=== PATIENT | female | born 1950 | race Caucasian/White ===

== ENCOUNTER 2018-06-20 05:52 | Outpatient (CLI) | payer MEDICARE ==
[~2018-06-20] VITALS: Ht 157.5 cm; Wt 39.0 kg
[2018-06-20] MEDS ORDERED: FOLI1TAB24 PO (09:32)
[2018-06-20] MEDS ORDERED: METO50TA15 PO (09:32)
[2018-06-20] MEDS ORDERED: POTA20TA8 PO (09:32)
== END 2018-06-20 09:57 | disposition home or self-care (01) ==
LOC: PREOP 05:52
PROVIDERS: ATTEND Surgery
DX: Z01.818 Encounter for other preprocedural examination (principal)

== ENCOUNTER 2018-06-25 08:00 | Day surgery (SDC) | payer MEDICARE ==
[~2018-06-25] VITALS: Ht 157.5 cm; Wt 39.0 kg
[~2018-06-25 08:00] MED LIST: FOLI1TAB24 PO; METO50TA15 PO; POTA20TA8 PO
[2018-06-25 08:20] VITALS: BP 170/87
[2018-06-25] MEDS ORDERED: LACTATED RINGERS 1,000 ML IV PRN (08:25)
[2018-06-25] MEDS ORDERED: ceFAZolin 2 GM IV Premixed 50 ML IV ONE (08:30)
[2018-06-25] MEDS ORDERED: CATHETER FLUSH 10 ML SYR IV PRN (08:30)
--- NOTE | 2018-06-25 08:30 | Progress Note-Pre Operative ---
Pre-Operative Progress Note H&P Reviewed The H&P was reviewed, patient examined and no changes noted. Time Seen by Provider: 08:24 Date H&P Reviewed: Jun 25, 2018 Time H&P Reviewed: 08:25 Pre-Operative Diagnosis: Venous Insufficiency ARVIN COUCH DO Jun 25, 2018 08:29
[2018-06-25] MEDS ORDERED: BUP/EPI 0.5% 1:200,000 (SENSORCAINE) 30 ML VIAL ONE (08:48)
[2018-06-25] MEDS ORDERED: 0.9% SODIUM CHLORIDE PF INJ 20 ML VIAL ONE (08:48)
[2018-06-25] MEDS ORDERED: HEParin (CENTRAL IV FLUSH) 500 UNIT/5 ML SYR ONE (08:48)
[2018-06-25] MEDS ORDERED: LIDOCAINE 1% INJ 20 ML 20 ML VIAL ONE (08:48)
[2018-06-25] MEDS ORDERED: proPOfol 200 MG/20 ML (DIPRIVAN) VIAL IV ONE (09:10)
[2018-06-25] MEDS ORDERED: MIDAZOLAM 2 MG/2 ML (VERSED) VIAL ONE (09:10)
[2018-06-25] MEDS ORDERED: fentaNYL INJECTION 100 MCG/2 ML AMP ONE (09:10)
[2018-06-25] MEDS ORDERED: LIDOCAINE PF 2% 5 ML (XYLOCAINE) VIAL ONE (09:10)
--- NOTE | 2018-06-25 10:51 | Progress Note-Post Operative ---
Post-Operative Progess Note Surgeon (s)/Compliance Program Manager (s) Surgeon ARVIN COUCH DO Compliance Program Manager: none Pre-Operative Diagnosis Venous Insufficiency, Lung CA Post-Operative Diagnosis Same Procedure & Operative Findings Date of Procedure 06/25/18 Procedure Performed/Findings Zafar-cath placement Anesthesia Type MAC Estimated Blood Loss Estimated blood loss (mL): scant Specimens/Packing Specimens Removed none ARVIN COUCH DO Jun 25, 2018 10:51
[2018-06-25] MEDS ORDERED: ACHD5005 PO ×2 (10:52)
--- NOTE | 2018-06-25 10:53 | Discharge Inst-Surgical ---
Discharge Inst-Surgical Depart Medication/Instructions New, Converted or Re-Newed RX: RX Given to Pt/Family Patient Instructions Follow up Appt: Make appointment for 1 week. [phone] Instructions: No strenuous activity. May shower in 24 hours, no tub bath or soaking. Use incentive spirometer at home as directed. No Smoking Skin/Wound Care: May remove bandages in am. You need to leave the Dermabond on incision it will fall off on it's own. Symptoms to Report: Appetite Changes, Extremity Discoloration, Numbness/Tingling, Swelling Increased , Bleeding Excessive, Eyesight Changes, Pain Increased, Urine Color Change, Constipation(Persistent), Fever over 101 degree F, Pain/Pressure in chest, Urinating Difficulty, Cough Up/Vomit Blood, Heart Beat Irreg/Pounding, Pain/ Pressure in jaw, Cramps in feet or legs, Lightheadedness, Pain/Pressure in shoulder, Diarrhea(Persistent), Memory Changes Suddenly, Questions/Concerns, Weight gain consecutive days, Dizziness/Fainting, Nausea/Vomiting, Shortness of Breath, Weight gain over 2 pounds If questions or concerns contact your physician Or seek help at emergency department. Activity Activity as Tolerated: Yes Activity Instructions: Avoid Stress to Incision Driving Instructions: No Driving/Refer to Dr. Strong Discharge Diet: No Restrictions Diet After 24 Hours: Clear Liquid if Nauseous If Any Problems/Questions/Issu: Contact Your Physician, Go to Emergency Room Skin/Wound Care Infection Signs and Symptoms: Increased Redness, Foul Odor of Wound, Increased Drainage, Skin Itchy or Has a Rash, Increased Swelling, Temperature Above 101 F Bathing Instructions: Shower Stitches/Carolee/Dermabond Dis: ARVIN Valente DO Jun 25, 2018 10:53
[2018-06-25] MEDS ORDERED: HYDROmorphone 2 MG/ML VIAL (DILAUDID) IV ONE (11:15)
[2018-06-25] MEDS ORDERED: ONDANSETRON 4 MG/2 ML (SDV) Z0FRAN IVP PRN (11:15)
[2018-06-25 11:20] VITALS: BP 141/75
[2018-06-25 11:25] VITALS: BP 141/75
--- NOTE | 2018-06-25 11:30 | Diagnostic Imaging Report ---
INDICATION: Port placement. TIME OF EXAMINATION: 11:14 a.m. FINDINGS: Portable upright view of the chest shows a left chest wall port with tip overlying the SVC. No pneumothorax is identified. The lungs are clear. The heart is enlarged. There is no effusion. IMPRESSION: Port placement. No pneumothorax is detected. Dictated by: Dictated on workstation # [id number]
[2018-06-25 11:50] VITALS: BP 161/83
--- NOTE | 2018-06-25 12:58 | Diagnostic Imaging Report ---
Indication: Fluoroscopy during a Groshong catheter placement. Fluoroscopy was provided for Dr. Ramos during Groshong catheter placement. 6 seconds of fluoroscopy was utilized. Images over the chest demonstrate a left subclavian Groshong catheter with tip overlying SVC. Impression: Fluoroscopy during Groshong catheter placement. Dictated by: Dictated on workstation # [id number]
--- NOTE | 2018-06-25 14:08 | Anesthesia-General Post-Op ---
MAC Patient Condition Mental Status/LOC: Same as Preop Cardiovascular: Satisfactory Nausea/Vomiting: Absent Respiratory: Satisfactory Pain: Controlled Complications: Absent Post Op Complications Complications None Follow Up Care/Instructions Patient Instructions None needed. Anesthesiology Discharge Order Discharge Order Patient is doing well, no complaints, stable vital signs, no apparent adverse anesthesia problems. No complications reported per nursing. AZUL SUERO CRNA Jun 25, 2018 14:08
--- NOTE | 2018-06-26 03:23 | OPERATIVE REPORT ---
DATE OF SERVICE: PREOPERATIVE DIAGNOSES: 1. Anal cancer. 2. Metastatic lung nodule. 3. Venous insufficiency. POSTOPERATIVE DIAGNOSES: 1. Anal cancer. 2. Metastatic lung nodule. 3. Venous insufficiency. PROCEDURE: Insertion of Port-A-Cath. SURGEON: Kevin Lynn DO RECORDING CLERK: None. ANESTHESIA: IV sedation by the EXECUTIVE CYBER LEADER with local lidocaine. BLOOD LOSS: Scant. SPECIMENS: None. FLUIDS: Per anesthesia. POSTOPERATIVE CONDITION: Stable. INDICATION FOR PROCEDURE: The patient is a 67-year-old female who unfortunately recently diagnosed with anal cancer with a metastatic lung nodule. She also has some venous insufficiency. We will need long-term access for chemotherapy. FINDINGS: The patient had a Port-A-Cath placed in the left anterior chest wall, left subclavian vein. PROCEDURE NOTE: After informed consent was obtained, the patient was brought to the operating room, placed on the table in supine position. She was sterilely prepped and draped in normal fashion. Local lidocaine was used to infiltrate the skin and left anterior chest wall towards the left clavicle. The patient placed in Trendelenburg, advanced an 18-gauge fine needle with negative inspiration and cannulated the subclavian vein on first attempt. Good flash of blood, removed the syringe, placed a guidewire down the needle using Seldinger technique, it went in easily, checked fluoroscopy, it was in good position in the superior vena cava, removed the needle and then made a stab incision along the guidewire with #11 blade and then made an incision in the chest wall with a #11 blade, carried down to skin and subcutaneous tissue and deepened down through subcutaneous tissue with Bovie electrocautery to the chest wall, created pocket bluntly and then over the guidewire placed a dilator using the Seldinger technique, it went in easily, checked with fluoroscopy, it was in good position, then tunneled the catheter from the stab incision to the port pocket and then removed the inner portion of the dilator sheath as well as the guidewire and then placed the catheter down the dilator sheath using a Seldinger technique, it went in easily, checked position with fluoroscopy, it was in good position, removed the external dilator sheath, then cut the distal portion of the catheter tip attached to the sling [id number] and then placed a locking mechanism. This was then placed into the pocket previously created, sutured in place with 3-0 Prolene. The port was accessed with a Osorio needle. A good flash of blood and easily flushed with saline as well as then aspirated and flushed with heparin flush. We then sutured this in place with a 3-0 Vicryl suture to close subcutaneous tissue and then 3 interrupted 4-0 undyed Monocryl subcuticular stitches to close the skin as well as a single 4-0 undyed Monocryl subcuticular stitch at the stab incision. Area was cleaned and dried. Dermabond was placed as well as dressings and the patient then transferred to recovery room in stable condition. Sponge, instrument and needle counts were correct at the end of the case. Job ID: [id number] DocumentID: [id number] Dictated Date: 06/25/2018 15:37:36 Labor Employment Associate Date: 06/26/2018 03:22:22 Dictated By: KEVIN LYNN DO
== END 2018-06-25 12:05 | disposition home or self-care (01) ==
LOC: SDC 08:00
PROVIDERS: ATTEND Surgery
DX: C21.1 Malignant neoplasm of anal canal (principal); C78.00 Secondary malignant neoplasm of unspecified lung; I10 Essential (primary) hypertension; J44.9 Chronic obstructive pulmonary disease, unspecified; E27.9 Disorder of adrenal gland, unspecified; F17.210 Nicotine dependence, cigarettes, uncomplicated; Z80.3 Family history of malignant neoplasm of breast; Z79.899 Other long term (current) drug therapy; Z92.3 Personal history of irradiation; Z11.2 Encounter for screening for other bacterial diseases
CPT/HCPCS: 71045; 87081

== ENCOUNTER → 2018-06-26 | Outpatient (CLI) | payer MEDICARE, OTHER ==
[~2018-06-26] MED LIST changes: +ACHD5005 PO
--- NOTE | 2018-06-26 16:29 | Diagnostic Imaging Report ---
INDICATION: Lung carcinoma and rectal carcinoma. This study is performed for restaging. TECHNIQUE: The serum blood glucose level at the time of injection was 85 mg/dL. The patient was administered 12.3 mCi of F-18 FDG intravenously and PET imaging was performed from the top of the skull to the mid thighs. Noncontrast CT was also performed for attenuation correction and anatomic correlation. COMPARISON: No prior studies are available for comparison. FINDINGS: There is symmetric activity throughout the brain. The soft tissues of the neck are unremarkable. Imaging through the chest does show some hypermetabolism in the subcarinal location with an SUV max of approximately 5.1. This does correspond to soft tissue fullness in this region on the noncontrast CT measuring 2.4 x 1.6 cm, suggestive of lymphadenopathy. No hilar hypermetabolism is seen. There is a hypermetabolic mass in the right lower lobe demonstrating an SUV max of approximately 7.4. This does correspond to a spiculated mass in the right lower lobe measuring 2.7 cm in diameter. No other pulmonary parenchymal hypermetabolic foci are seen. There is physiologic uptake of activity within the GI and tracts of the abdomen and pelvis. IMPRESSION: Hypermetabolic right lower lobe mass, consistent with primary lung neoplasm. There is hypermetabolic soft tissue fullness in the subcarinal region, consistent with adenopathy and likely metastatic disease. No other suspicious foci are detected. Dictated by: Dictated on workstation # [id number]
== END ==
LOC: RAD 09:15
PROVIDERS: ATTEND Internal Medicine Hematology & Oncology
DX: C34.31 Malignant neoplasm of lower lobe, right bronchus or lung (principal); C21.1 Malignant neoplasm of anal canal

== ENCOUNTER 2018-06-27 09:41 | Outpatient (RCR) | payer OTHER ==
[2018-04-11 17:25] LABS: BUN/CREATININE RATIO 18; CREATININE SERUM 0.73 MG/DL (0.60-1.30); GFR ESTIMATED > 60
[~2018-06-27 09:41] MED LIST changes: +CYANOCOBALAMIN INJ 1000 MCG/ML (CANCER CENTER) ONE
[2018-06-27 11:43] LABS: BASOPHILS # (AUTO) 0.1 10^3/uL (0.0-0.1); BASOPHILS % (AUTO) 2 % (0-10); EOSINOPHILS # (AUTO) 0.1 10^3/uL (0.0-0.3); EOSINOPHILS % (AUTO) 1 % (0-10); HEMATOCRIT 38 % (35-52); HEMOGLOBIN 12.3 G/DL (11.5-16.0); LYMPHOCYTES # (AUTO) 0.4 X 10^3 (1.0-4.0); LYMPHOCYTES % (AUTO) 7 % (12-44); MEAN CORPUSCULAR HEMOGLOBIN 30 PG (25-34); MEAN CORPUSCULAR HGB CONC 32 G/DL (32-36); MEAN CORPUSCULAR VOLUME 94 FL (80-99); MEAN PLATELET VOLUME 8.6 FL (7.4-10.4); MONOCYTES # (AUTO) 0.6 X 10^3 (0.0-1.0); MONOCYTES % (AUTO) 10 % (0-12); NEUTROPHILS # (AUTO) 4.9 X 10^3 (1.8-7.8); NEUTROPHILS % (AUTO) 80 % (42-75); PLATELET COUNT 338 10^3/uL (130-400); RED CELL DISTRIBUTION WIDTH 16.7 % (10.0-14.5); WHITE BLOOD COUNT 6.1 10^3/uL (4.3-11.0)
[2018-06-27 12:02] LABS: ALANINE AMINOTRANSFERASE 9 U/L (0-55); ALBUMIN 3.8 GM/DL (3.2-4.5); ALKALINE PHOSPHATASE 123 U/L (40-136); BILIRUBIN,TOTAL 0.2 MG/DL (0.1-1.0); BUN/CREATININE RATIO 17; CALCIUM 8.9 MG/DL (8.5-10.1); CARBON DIOXIDE 24 MMOL/L (21-32); CHLORIDE 106 MMOL/L (98-107); CREATININE SERUM 0.64 MG/DL (0.60-1.30); GFR ESTIMATED > 60; GLUCOSE 98 MG/DL (70-105); MAGNESIUM 1.9 MG/DL (1.8-2.4); POTASSIUM 4.2 MMOL/L (3.6-5.0); SODIUM 139 MMOL/L (135-145); TOTAL PROTEIN 6.6 GM/DL (6.4-8.2)
== END 2018-07-10 | disposition home or self-care (01) ==
LOC: ONC 09:41
PROVIDERS: ATTEND Internal Medicine Hematology & Oncology
DX: Z51.0 Encounter for antineoplastic radiation therapy (principal); C21.1 Malignant neoplasm of anal canal; C34.31 Malignant neoplasm of lower lobe, right bronchus or lung; I10 Essential (primary) hypertension; J44.9 Chronic obstructive pulmonary disease, unspecified; F17.210 Nicotine dependence, cigarettes, uncomplicated; Z79.899 Other long term (current) drug therapy
CPT/HCPCS: 36415; 77280; 77290; 77295; 77300; 77307; 77334; 77336; 77417; 77470; 80053; 82565; 83735; 84520; 85025; 96372; 99204; 99212; 99213

== ENCOUNTER 2018-10-10 10:08 | Outpatient (RCR) | payer OTHER ==
[2018-07-25 11:31] LABS: BASOPHILS % (AUTO) 0 % (0-10); EOSINOPHILS % (AUTO) 0 % (0-10); HEMATOCRIT 38 % (35-52); HEMOGLOBIN 12.3 G/DL (11.5-16.0); LYMPHOCYTES # (AUTO) 0.3 X 10^3 (1.0-4.0); LYMPHOCYTES % (AUTO) 3 % (12-44); MEAN CORPUSCULAR HEMOGLOBIN 31 PG (25-34); MEAN CORPUSCULAR HGB CONC 33 G/DL (32-36); MEAN CORPUSCULAR VOLUME 96 FL (80-99); MEAN PLATELET VOLUME 8.9 FL (7.4-10.4); MONOCYTES # (AUTO) 0.6 X 10^3 (0.0-1.0); MONOCYTES % (AUTO) 5 % (0-12); NEUTROPHILS # (AUTO) 10.7 X 10^3 (1.8-7.8); NEUTROPHILS % (AUTO) 93 % (42-75); PLATELET COUNT 378 10^3/uL (130-400); WHITE BLOOD COUNT 11.5 10^3/uL (4.3-11.0)
[2018-07-25 11:58] LABS: ALANINE AMINOTRANSFERASE 8 U/L (0-55); ALBUMIN 4.1 GM/DL (3.2-4.5); ALKALINE PHOSPHATASE 124 U/L (40-136); BILIRUBIN,TOTAL 0.2 MG/DL (0.1-1.0); BUN/CREATININE RATIO 26; CALCIUM 9.7 MG/DL (8.5-10.1); CARBON DIOXIDE 25 MMOL/L (21-32); CHLORIDE 105 MMOL/L (98-107); CREATININE SERUM 0.65 MG/DL (0.60-1.30); GFR ESTIMATED > 60; GLUCOSE 107 MG/DL (70-105); POTASSIUM 4.1 MMOL/L (3.6-5.0); SODIUM 140 MMOL/L (135-145); TOTAL PROTEIN 7.2 GM/DL (6.4-8.2)
[2018-08-01 10:33] LABS: BASOPHILS % (AUTO) 1 % (0-10); EOSINOPHILS # (AUTO) 0.1 10^3/uL (0.0-0.3); EOSINOPHILS % (AUTO) 3 % (0-10); HEMATOCRIT 39 % (35-52); HEMOGLOBIN 12.6 G/DL (11.5-16.0); LYMPHOCYTES # (AUTO) 0.4 X 10^3 (1.0-4.0); LYMPHOCYTES % (AUTO) 12 % (12-44); MEAN CORPUSCULAR HEMOGLOBIN 32 PG (25-34); MEAN CORPUSCULAR HGB CONC 32 G/DL (32-36); MEAN CORPUSCULAR VOLUME 98 FL (80-99); MEAN PLATELET VOLUME 8.9 FL (7.4-10.4); MONOCYTES # (AUTO) 0.3 X 10^3 (0.0-1.0); MONOCYTES % (AUTO) 10 % (0-12); NEUTROPHILS # (AUTO) 2.2 X 10^3 (1.8-7.8); NEUTROPHILS % (AUTO) 74 % (42-75); PLATELET COUNT 237 10^3/uL (130-400); RED CELL DISTRIBUTION WIDTH 15.5 % (10.0-14.5)
[2018-08-01 10:54] LABS: BUN/CREATININE RATIO 36; CALCIUM 9.2 MG/DL (8.5-10.1); CARBON DIOXIDE 22 MMOL/L (21-32); CHLORIDE 104 MMOL/L (98-107); CREATININE SERUM 0.73 MG/DL (0.60-1.30); GFR ESTIMATED > 60; GLUCOSE 85 MG/DL (70-105); POTASSIUM 4.5 MMOL/L (3.6-5.0); SODIUM 138 MMOL/L (135-145)
[2018-08-08 10:44] LABS: BASOPHILS % (AUTO) 0 % (0-10); EOSINOPHILS % (AUTO) 0 % (0-10); HEMATOCRIT 37 % (35-52); LYMPHOCYTES # (AUTO) 0.2 X 10^3 (1.0-4.0); LYMPHOCYTES % (AUTO) 3 % (12-44); MEAN CORPUSCULAR HEMOGLOBIN 31 PG (25-34); MEAN CORPUSCULAR HGB CONC 32 G/DL (32-36); MEAN CORPUSCULAR VOLUME 96 FL (80-99); MEAN PLATELET VOLUME 9.2 FL (7.4-10.4); MONOCYTES # (AUTO) 0.4 X 10^3 (0.0-1.0); MONOCYTES % (AUTO) 5 % (0-12); NEUTROPHILS # (AUTO) 6.5 X 10^3 (1.8-7.8); NEUTROPHILS % (AUTO) 92 % (42-75); PLATELET COUNT 199 10^3/uL (130-400); RED CELL DISTRIBUTION WIDTH 15.1 % (10.0-14.5); WHITE BLOOD COUNT 7.1 10^3/uL (4.3-11.0)
[2018-08-08 10:59] LABS: BUN/CREATININE RATIO 22; CALCIUM 9.2 MG/DL (8.5-10.1); CARBON DIOXIDE 22 MMOL/L (21-32); CHLORIDE 103 MMOL/L (98-107); CREATININE SERUM 0.64 MG/DL (0.60-1.30); GFR ESTIMATED > 60; GLUCOSE 113 MG/DL (70-105); POTASSIUM 3.4 MMOL/L (3.6-5.0); SODIUM 138 MMOL/L (135-145)
[2018-08-15 10:47] LABS: BASOPHILS % (AUTO) 0 % (0-10); EOSINOPHILS % (AUTO) 0 % (0-10); HEMATOCRIT 35 % (35-52); HEMOGLOBIN 11.4 G/DL (11.5-16.0); LYMPHOCYTES # (AUTO) 0.3 X 10^3 (1.0-4.0); LYMPHOCYTES % (AUTO) 3 % (12-44); MEAN CORPUSCULAR HEMOGLOBIN 31 PG (25-34); MEAN CORPUSCULAR HGB CONC 33 G/DL (32-36); MEAN CORPUSCULAR VOLUME 96 FL (80-99); MEAN PLATELET VOLUME 8.7 FL (7.4-10.4); MONOCYTES # (AUTO) 0.8 X 10^3 (0.0-1.0); MONOCYTES % (AUTO) 10 % (0-12); NEUTROPHILS # (AUTO) 6.9 X 10^3 (1.8-7.8); NEUTROPHILS % (AUTO) 87 % (42-75); PLATELET COUNT 316 10^3/uL (130-400); RED CELL DISTRIBUTION WIDTH 15.3 % (10.0-14.5)
[2018-08-15 11:04] LABS: ALANINE AMINOTRANSFERASE 11 U/L (0-55); ALBUMIN 4.1 GM/DL (3.2-4.5); ALKALINE PHOSPHATASE 117 U/L (40-136); BILIRUBIN,TOTAL 0.2 MG/DL (0.1-1.0); BUN/CREATININE RATIO 24; CALCIUM 9.9 MG/DL (8.5-10.1); CARBON DIOXIDE 24 MMOL/L (21-32); CHLORIDE 105 MMOL/L (98-107); CREATININE SERUM 0.66 MG/DL (0.60-1.30); GFR ESTIMATED > 60; GLUCOSE 108 MG/DL (70-105); POTASSIUM 4.3 MMOL/L (3.6-5.0); SODIUM 139 MMOL/L (135-145); TOTAL PROTEIN 6.9 GM/DL (6.4-8.2)
[2018-08-22 10:14] LABS: BASOPHILS % (AUTO) 0 % (0-10); EOSINOPHILS % (AUTO) 1 % (0-10); HEMATOCRIT 38 % (35-52); HEMOGLOBIN 12.6 G/DL (11.5-16.0); LYMPHOCYTES # (AUTO) 0.3 X 10^3 (1.0-4.0); LYMPHOCYTES % (AUTO) 8 % (12-44); MEAN CORPUSCULAR HEMOGLOBIN 32 PG (25-34); MEAN CORPUSCULAR HGB CONC 34 G/DL (32-36); MEAN CORPUSCULAR VOLUME 96 FL (80-99); MEAN PLATELET VOLUME 8.9 FL (7.4-10.4); MONOCYTES # (AUTO) 0.3 X 10^3 (0.0-1.0); MONOCYTES % (AUTO) 8 % (0-12); NEUTROPHILS # (AUTO) 2.5 X 10^3 (1.8-7.8); NEUTROPHILS % (AUTO) 82 % (42-75); PLATELET COUNT 169 10^3/uL (130-400); RED CELL DISTRIBUTION WIDTH 14.8 % (10.0-14.5); WHITE BLOOD COUNT 3.1 10^3/uL (4.3-11.0)
[2018-08-22 10:29] LABS: BUN/CREATININE RATIO 29; CALCIUM 9.7 MG/DL (8.5-10.1); CARBON DIOXIDE 27 MMOL/L (21-32); CHLORIDE 102 MMOL/L (98-107); CREATININE SERUM 0.73 MG/DL (0.60-1.30); GFR ESTIMATED > 60; GLUCOSE 107 MG/DL (70-105); POTASSIUM 4.5 MMOL/L (3.6-5.0); SODIUM 136 MMOL/L (135-145)
[2018-08-29 09:57] LABS: BASOPHILS % (AUTO) 0 % (0-10); EOSINOPHILS % (AUTO) 1 % (0-10); HEMATOCRIT 35 % (35-52); HEMOGLOBIN 11.8 G/DL (11.5-16.0); LYMPHOCYTES # (AUTO) 0.2 X 10^3 (1.0-4.0); LYMPHOCYTES % (AUTO) 4 % (12-44); MEAN CORPUSCULAR HEMOGLOBIN 32 PG (25-34); MEAN CORPUSCULAR HGB CONC 33 G/DL (32-36); MEAN CORPUSCULAR VOLUME 96 FL (80-99); MEAN PLATELET VOLUME 9.2 FL (7.4-10.4); MONOCYTES # (AUTO) 0.4 X 10^3 (0.0-1.0); MONOCYTES % (AUTO) 9 % (0-12); NEUTROPHILS # (AUTO) 3.7 X 10^3 (1.8-7.8); NEUTROPHILS % (AUTO) 86 % (42-75); PLATELET COUNT 111 10^3/uL (130-400); WHITE BLOOD COUNT 4.3 10^3/uL (4.3-11.0)
[2018-08-29 10:12] LABS: BUN/CREATININE RATIO 23; CALCIUM 9.5 MG/DL (8.5-10.1); CARBON DIOXIDE 24 MMOL/L (21-32); CHLORIDE 103 MMOL/L (98-107); CREATININE SERUM 0.77 MG/DL (0.60-1.30); GFR ESTIMATED > 60; GLUCOSE 110 MG/DL (70-105); POTASSIUM 3.9 MMOL/L (3.6-5.0); SODIUM 137 MMOL/L (135-145)
[2018-09-05 10:31] LABS: BASOPHILS % (AUTO) 0 % (0-10); EOSINOPHILS % (AUTO) 0 % (0-10); HEMATOCRIT 33 % (35-52); HEMOGLOBIN 11.2 G/DL (11.5-16.0); LYMPHOCYTES # (AUTO) 0.2 X 10^3 (1.0-4.0); LYMPHOCYTES % (AUTO) 3 % (12-44); MEAN CORPUSCULAR HEMOGLOBIN 32 PG (25-34); MEAN CORPUSCULAR HGB CONC 34 G/DL (32-36); MEAN CORPUSCULAR VOLUME 95 FL (80-99); MEAN PLATELET VOLUME 8.8 FL (7.4-10.4); MONOCYTES # (AUTO) 0.4 X 10^3 (0.0-1.0); MONOCYTES % (AUTO) 7 % (0-12); NEUTROPHILS # (AUTO) 5.7 X 10^3 (1.8-7.8); NEUTROPHILS % (AUTO) 90 % (42-75); PLATELET COUNT 240 10^3/uL (130-400); RED CELL DISTRIBUTION WIDTH 15.2 % (10.0-14.5); WHITE BLOOD COUNT 6.4 10^3/uL (4.3-11.0)
[2018-09-05 10:52] LABS: ALANINE AMINOTRANSFERASE 12 U/L (0-55); ALBUMIN 4.2 GM/DL (3.2-4.5); ALKALINE PHOSPHATASE 103 U/L (40-136); BILIRUBIN,TOTAL 0.2 MG/DL (0.1-1.0); BUN/CREATININE RATIO 21; CALCIUM 9.7 MG/DL (8.5-10.1); CARBON DIOXIDE 26 MMOL/L (21-32); CHLORIDE 103 MMOL/L (98-107); CREATININE SERUM 0.62 MG/DL (0.60-1.30); GFR ESTIMATED > 60; GLUCOSE 114 MG/DL (70-105); POTASSIUM 3.7 MMOL/L (3.6-5.0); SODIUM 139 MMOL/L (135-145)
[2018-09-11 10:05] LABS: BASOPHILS % (AUTO) 0 % (0-10); EOSINOPHILS % (AUTO) 1 % (0-10); HEMATOCRIT 36 % (35-52); HEMOGLOBIN 11.8 G/DL (11.5-16.0); LYMPHOCYTES # (AUTO) 0.1 X 10^3 (1.0-4.0); LYMPHOCYTES % (AUTO) 4 % (12-44); MEAN CORPUSCULAR HEMOGLOBIN 31 PG (25-34); MEAN CORPUSCULAR HGB CONC 33 G/DL (32-36); MEAN CORPUSCULAR VOLUME 95 FL (80-99); MEAN PLATELET VOLUME 8.9 FL (7.4-10.4); MONOCYTES # (AUTO) 0.3 X 10^3 (0.0-1.0); MONOCYTES % (AUTO) 8 % (0-12); NEUTROPHILS # (AUTO) 2.8 X 10^3 (1.8-7.8); NEUTROPHILS % (AUTO) 87 % (42-75); PLATELET COUNT 186 10^3/uL (130-400); RED CELL DISTRIBUTION WIDTH 14.9 % (10.0-14.5); WHITE BLOOD COUNT 3.2 10^3/uL (4.3-11.0)
[2018-09-11 10:24] LABS: BUN/CREATININE RATIO 23; CALCIUM 9.7 MG/DL (8.5-10.1); CARBON DIOXIDE 25 MMOL/L (21-32); CHLORIDE 100 MMOL/L (98-107); CREATININE SERUM 0.64 MG/DL (0.60-1.30); GFR ESTIMATED > 60; GLUCOSE 101 MG/DL (70-105); POTASSIUM 3.2 MMOL/L (3.6-5.0); SODIUM 139 MMOL/L (135-145)
[2018-09-19 12:17] LABS: BASOPHILS % (AUTO) 0 % (0-10); EOSINOPHILS % (AUTO) 1 % (0-10); HEMATOCRIT 31 % (35-52); HEMOGLOBIN 10.2 G/DL (11.5-16.0); LYMPHOCYTES # (AUTO) 0.2 X 10^3 (1.0-4.0); LYMPHOCYTES % (AUTO) 4 % (12-44); MEAN CORPUSCULAR HEMOGLOBIN 32 PG (25-34); MEAN CORPUSCULAR HGB CONC 33 G/DL (32-36); MEAN CORPUSCULAR VOLUME 96 FL (80-99); MEAN PLATELET VOLUME 9.6 FL (7.4-10.4); MONOCYTES # (AUTO) 0.8 X 10^3 (0.0-1.0); MONOCYTES % (AUTO) 13 % (0-12); NEUTROPHILS # (AUTO) 4.9 X 10^3 (1.8-7.8); NEUTROPHILS % (AUTO) 83 % (42-75); PLATELET COUNT 87 10^3/uL (130-400); WHITE BLOOD COUNT 5.9 10^3/uL (4.3-11.0)
[2018-09-19 12:33] LABS: BUN/CREATININE RATIO 19; CARBON DIOXIDE 29 MMOL/L (21-32); CHLORIDE 102 MMOL/L (98-107); CREATININE SERUM 0.63 MG/DL (0.60-1.30); POTASSIUM 2.9 MMOL/L (3.6-5.0); SODIUM 141 MMOL/L (135-145)
[2018-09-19 12:34] LABS: CALCIUM 9.3 MG/DL (8.5-10.1); GFR ESTIMATED > 60; GLUCOSE 92 MG/DL (70-105)
[2018-09-26 13:02] LABS: BASOPHILS % (AUTO) 0 % (0-10); EOSINOPHILS % (AUTO) 0 % (0-10); HEMATOCRIT 31 % (35-52); LYMPHOCYTES # (AUTO) 0.2 X 10^3 (1.0-4.0); LYMPHOCYTES % (AUTO) 3 % (12-44); MEAN CORPUSCULAR HEMOGLOBIN 32 PG (25-34); MEAN CORPUSCULAR HGB CONC 33 G/DL (32-36); MEAN CORPUSCULAR VOLUME 97 FL (80-99); MEAN PLATELET VOLUME 9.5 FL (7.4-10.4); MONOCYTES # (AUTO) 0.6 X 10^3 (0.0-1.0); MONOCYTES % (AUTO) 7 % (0-12); NEUTROPHILS # (AUTO) 6.9 X 10^3 (1.8-7.8); NEUTROPHILS % (AUTO) 90 % (42-75); PLATELET COUNT 217 10^3/uL (130-400); RED CELL DISTRIBUTION WIDTH 15.5 % (10.0-14.5); WHITE BLOOD COUNT 7.7 10^3/uL (4.3-11.0)
[2018-09-26 13:18] LABS: ALANINE AMINOTRANSFERASE 6 U/L (0-55); ALBUMIN 3.7 GM/DL (3.2-4.5); ALKALINE PHOSPHATASE 130 U/L (40-136); BILIRUBIN,TOTAL 0.1 MG/DL (0.1-1.0); BUN/CREATININE RATIO 29; CALCIUM 9.5 MG/DL (8.5-10.1); CARBON DIOXIDE 21 MMOL/L (21-32); CHLORIDE 106 MMOL/L (98-107); CREATININE SERUM 0.72 MG/DL (0.60-1.30); GFR ESTIMATED > 60; GLUCOSE 151 MG/DL (70-105); POTASSIUM 4.1 MMOL/L (3.6-5.0); SODIUM 141 MMOL/L (135-145); TOTAL PROTEIN 6.6 GM/DL (6.4-8.2)
[2018-10-03 11:28] LABS: BASOPHILS # (AUTO) 0.1 10^3/uL (0.0-0.1); BASOPHILS % (AUTO) 2 % (0-10); EOSINOPHILS % (AUTO) 0 % (0-10); HEMATOCRIT 31 % (35-52); HEMOGLOBIN 10.2 G/DL (11.5-16.0); LYMPHOCYTES # (AUTO) 0.2 X 10^3 (1.0-4.0); LYMPHOCYTES % (AUTO) 9 % (12-44); MEAN CORPUSCULAR HEMOGLOBIN 32 PG (25-34); MEAN CORPUSCULAR HGB CONC 33 G/DL (32-36); MEAN CORPUSCULAR VOLUME 96 FL (80-99); MEAN PLATELET VOLUME 9.1 FL (7.4-10.4); MONOCYTES # (AUTO) 0.3 X 10^3 (0.0-1.0); MONOCYTES % (AUTO) 10 % (0-12); NEUTROPHILS % (AUTO) 79 % (42-75); PLATELET COUNT 127 10^3/uL (130-400); RED CELL DISTRIBUTION WIDTH 15.1 % (10.0-14.5); WHITE BLOOD COUNT 2.5 10^3/uL (4.3-11.0)
[2018-10-03 11:47] LABS: BUN/CREATININE RATIO 26; CALCIUM 9.3 MG/DL (8.5-10.1); CARBON DIOXIDE 22 MMOL/L (21-32); CHLORIDE 102 MMOL/L (98-107); CREATININE SERUM 0.62 MG/DL (0.60-1.30); GFR ESTIMATED > 60; GLUCOSE 87 MG/DL (70-105); POTASSIUM 3.7 MMOL/L (3.6-5.0); SODIUM 139 MMOL/L (135-145)
[~2018-10-10] VITALS: Ht 160 cm; Wt 38.6 kg
[~2018-10-10 10:08] MED LIST changes: +CARBOPLATIN IV SCH; +D5W IV SCH; +FOSAPREPITANT DIMEGLUMINE 150 MG in NS (IVPB) CANCER CENTER ONLY 150 ML IV SCH; +NS IV 1000 ML (CANCER CTR) IV SCH; +PALONOSETRON HCL 0.25 MG, DEXAMETHASONE INJECTION 10 MG in NS (IVPB) CANCER CENTER 50 ML IV SCH; +PEMETREXED DISODIUM IV SCH; +[UNRECOGNIZED DRUG - OTHER] IV SCH
[2018-10-10 10:29] LABS: BASOPHILS % (AUTO) 0 % (0-10); EOSINOPHILS % (AUTO) 1 % (0-10); HEMATOCRIT 28 % (35-52); HEMOGLOBIN 9.3 G/DL (11.5-16.0); LYMPHOCYTES # (AUTO) 0.3 X 10^3 (1.0-4.0); LYMPHOCYTES % (AUTO) 8 % (12-44); MEAN CORPUSCULAR HEMOGLOBIN 32 PG (25-34); MEAN CORPUSCULAR HGB CONC 33 G/DL (32-36); MEAN CORPUSCULAR VOLUME 97 FL (80-99); MEAN PLATELET VOLUME 10.9 FL (7.4-10.4); MONOCYTES # (AUTO) 0.4 X 10^3 (0.0-1.0); MONOCYTES % (AUTO) 13 % (0-12); NEUTROPHILS # (AUTO) 2.3 X 10^3 (1.8-7.8); NEUTROPHILS % (AUTO) 78 % (42-75); PLATELET COUNT 56 10^3/uL (130-400); RED CELL DISTRIBUTION WIDTH 16.1 % (10.0-14.5)
[2018-10-10 10:49] LABS: BUN/CREATININE RATIO 13; CALCIUM 9.4 MG/DL (8.5-10.1); CARBON DIOXIDE 27 MMOL/L (21-32); CHLORIDE 104 MMOL/L (98-107); CREATININE SERUM 0.69 MG/DL (0.60-1.30); GFR ESTIMATED > 60; GLUCOSE 97 MG/DL (70-105); POTASSIUM 3.5 MMOL/L (3.6-5.0); SODIUM 141 MMOL/L (135-145)
== END 2018-10-16 | disposition home or self-care (01) ==
LOC: ONC 10:08
PROVIDERS: ATTEND Internal Medicine Hematology & Oncology
DX: Z51.0 Encounter for antineoplastic radiation therapy (principal); Z51.11 Encounter for antineoplastic chemotherapy; C21.1 Malignant neoplasm of anal canal; C34.31 Malignant neoplasm of lower lobe, right bronchus or lung; I10 Essential (primary) hypertension; J44.9 Chronic obstructive pulmonary disease, unspecified; E27.9 Disorder of adrenal gland, unspecified; F17.210 Nicotine dependence, cigarettes, uncomplicated; Z80.3 Family history of malignant neoplasm of breast; Z79.899 Other long term (current) drug therapy; Z11.2 Encounter for screening for other bacterial diseases
CPT/HCPCS: 36415; 36591; 77290; 77295; 77300; 77307; 77334; 77336; 77417; 77470; 80048; 80053; 85025; 96367; 96375; 96411; 96413; 99213

== ENCOUNTER → 2018-10-17 | Outpatient (CLI) | payer MEDICARE, OTHER ==
[~2018-10-17] MED LIST changes: -CARBOPLATIN IV SCH; -CYANOCOBALAMIN INJ 1000 MCG/ML (CANCER CENTER) ONE; -D5W IV SCH; -FOSAPREPITANT DIMEGLUMINE 150 MG in NS (IVPB) CANCER CENTER ONLY 150 ML IV SCH; +HOLD METFORMIN - RECEIVED CONTRAST 20 ML VIAL IV SCH; +IOHEXOL 350 MG/ML 100 ML (OMNIPAQUE 350) VIAL IV ONE; +NS 100 ML (IVPB) BAG IV ONE; -NS IV 1000 ML (CANCER CTR) IV SCH; -PALONOSETRON HCL 0.25 MG, DEXAMETHASONE INJECTION 10 MG in NS (IVPB) CANCER CENTER 50 ML IV SCH; -PEMETREXED DISODIUM IV SCH; -[UNRECOGNIZED DRUG - OTHER] IV SCH
--- NOTE | 2018-10-17 14:19 | Diagnostic Imaging Report ---
PROCEDURE: CT chest with contrast, CT abdomen and pelvis with and without contrast. TECHNIQUE: Pre and post intravenous contrast axial imaging of the abdomen and pelvis and post contrast axial imaging of the chest were performed. Auto Exposure Controls were utilized during the CT exam to meet ALARA standards for radiation dose reduction. INDICATION: Lung carcinoma and upper abdominal pain. COMPARISON: Comparison is made with PET/CT study from 06/26/2018. FINDINGS: CT chest: Left chest wall port is again noted. No axillary lymphadenopathy is detected. Subcarinal fullness measures approximately 2.6 x 2.5 cm compared with 1.6 x 2.4 cm on prior. Comparison is difficult due to the previous study being performed without contrast. No definite hilar adenopathy is seen. No pericardial or pleural fluid is identified. Parenchymal evaluation demonstrates marked apical pleural-parenchymal scarring. There are significant centrilobular emphysematous changes in both lungs. The patient has developed some airspace infiltrate and bronchiectasis in the right middle lobe and to a lesser degree in the lingula. Spiculated mass measures approximately 2.3 cm compared with 2.7 cm on prior. There is some new infiltrate anterior to this in the right lower lobe. Left lower lobe is clear. IMPRESSION: 1. Spiculated right lower lobe mass measures slightly smaller when compared with prior exam. There are new airspace opacities in the right middle lobe, right lower lobe, and lingula, likely on an infectious/inflammatory basis. 2. Questionable increase in the subcarinal lymphadenopathy since prior PET/CT, although comparison is difficult due to absence of IV contrast on prior imaging. CT abdomen and pelvis: No discrete liver mass is identified. Gallbladder is unremarkable. There is no biliary ductal dilatation. The pancreas and spleen are unremarkable. Right adrenal gland is unremarkable. The mixed-density mass involving the left adrenal gland is similar in size at approximately 4.1 x 3.0 cm compared with 4.0 x 2.9 cm on prior. Small nonobstructing calculi in both kidneys are noted. Aorta is heavily calcified but nonaneurysmal. Iliacs are heavily calcified. Bowel loops appear nonobstructive. Bladder does show some mild generalized wall thickening, nonspecific. This could be partially owing to underdistention. No definite abdominal or pelvic lymphadenopathy is seen. There is diverticulosis of the sigmoid colon but no definite evidence of acute diverticulitis. There is some questionable wall thickening of the rectum. This is less prominent than appearance on the PET/CT from 06/26/2018. IMPRESSION: 1. Stable mixed-density left adrenal mass since study from 06/26/2018. 2. Bilateral nonobstructing nephrolithiasis. 3. No evidence of abdominal or pelvic lymphadenopathy. 4. Rectal wall thickening and perirectal inflammatory stranding, improved since prior PET/CT. This could potentially be post therapeutic. Dictated by: Dictated on workstation # [id number]
== END ==
LOC: RAD 13:01
PROVIDERS: ATTEND Internal Medicine Hematology & Oncology
DX: C34.90 Malignant neoplasm of unspecified part of unspecified bronchus or lung (principal); C21.1 Malignant neoplasm of anal canal; E27.8 Other specified disorders of adrenal gland; N20.0 Calculus of kidney; Z95.828 Presence of other vascular implants and grafts
CPT/HCPCS: 71260; 74178

== ENCOUNTER → 2018-11-19 | Outpatient (CLI) | payer MEDICARE ==
--- NOTE | 2018-11-19 15:32 | Diagnostic Imaging Report ---
PROCEDURE: CT chest with contrast only. TECHNIQUE: Multiple contiguous axial images were obtained through the chest after administration of intravenous contrast. Auto Exposure Controls were utilized during the CT exam to meet ALARA standards for radiation dose reduction. INDICATION: Lung cancer. FINDINGS: Comparison is 10/17/2018. The lungs are severely emphysematous. A 1.7 x 1.4 cm right lower lobe spiculated nodule has mildly decreased in size previously measuring 2.2 x 1.8 cm. Atelectasis and nodularity in the right middle lobe has improved with areas of bronchial plugging going to this portion of the lung. A pleural-based nodule more inferiorly in the right lower lobe is stable in size measuring 1.7 x 1.4 cm, previously 1.8 x 1.3 cm. 5 mm superior segment right lower lobe nodule. No new nodules are seen. There is scarring in the apices. No pleural effusion or pneumothorax. Heart size is normal. No pericardial effusion. Aorta is normal in caliber. There are mild coronary artery calcifications. No axillary, supraclavicular lymphadenopathy. A subcarinal lymph node is decreased in size measuring 1.7 cm, previously 2.3 cm. Limited views of the upper abdomen reveal a stable left adrenal nodule measuring 4.0 x 3.0 cm. This contains internal fat and may represent a large myelolipoma. No suspicious osseous lesions are seen. IMPRESSION: 1. Mild decrease in size of right lower lobe nodule and subcarinal lymphadenopathy. 2. Stable left adrenal nodule, possibly a myelolipoma given presence of internal fat. 3. Improvement in consolidation and atelectasis in the right middle lobe, likely infectious or inflammatory with bronchial plugging noted going to this area. Dictated by: Dictated on workstation # [id number]
== END ==
LOC: RAD 12:01
PROVIDERS: ATTEND Internal Medicine Hematology & Oncology
DX: C34.90 Malignant neoplasm of unspecified part of unspecified bronchus or lung (principal); C21.1 Malignant neoplasm of anal canal; E27.8 Other specified disorders of adrenal gland; J18.1 Lobar pneumonia, unspecified organism; J98.11 Atelectasis; R59.0 Localized enlarged lymph nodes
CPT/HCPCS: 71260

== ENCOUNTER 2018-12-24 08:48 | Outpatient (RCR) | payer OTHER ==
[2018-10-17 14:03] LABS: BASOPHILS % (AUTO) 1 % (0-10); EOSINOPHILS % (AUTO) 1 % (0-10); HEMATOCRIT 31 % (35-52); HEMOGLOBIN 9.9 G/DL (11.5-16.0); LYMPHOCYTES # (AUTO) 0.4 X 10^3 (1.0-4.0); LYMPHOCYTES % (AUTO) 10 % (12-44); MEAN CORPUSCULAR HEMOGLOBIN 32 PG (25-34); MEAN CORPUSCULAR HGB CONC 32 G/DL (32-36); MEAN CORPUSCULAR VOLUME 99 FL (80-99); MEAN PLATELET VOLUME 9.3 FL (7.4-10.4); MONOCYTES % (AUTO) 23 % (0-12); NEUTROPHILS # (AUTO) 2.8 X 10^3 (1.8-7.8); NEUTROPHILS % (AUTO) 66 % (42-75); PLATELET COUNT 181 10^3/uL (130-400); RED CELL DISTRIBUTION WIDTH 17.2 % (10.0-14.5); WHITE BLOOD COUNT 4.3 10^3/uL (4.3-11.0)
[2018-10-17 14:22] LABS: BUN/CREATININE RATIO 15; CALCIUM 9.1 MG/DL (8.5-10.1); CARBON DIOXIDE 26 MMOL/L (21-32); CHLORIDE 98 MMOL/L (98-107); CREATININE SERUM 0.75 MG/DL (0.60-1.30); GFR ESTIMATED > 60; GLUCOSE 91 MG/DL (70-105); SODIUM 137 MMOL/L (135-145)
[2018-11-19 11:58] LABS: BASOPHILS # (AUTO) 0.1 10^3/uL (0.0-0.1); BASOPHILS % (AUTO) 1 % (0-10); EOSINOPHILS # (AUTO) 0.2 10^3/uL (0.0-0.3); EOSINOPHILS % (AUTO) 3 % (0-10); HEMATOCRIT 34 % (35-52); HEMOGLOBIN 10.8 G/DL (11.5-16.0); LYMPHOCYTES # (AUTO) 0.4 X 10^3 (1.0-4.0); LYMPHOCYTES % (AUTO) 7 % (12-44); MEAN CORPUSCULAR HEMOGLOBIN 32 PG (25-34); MEAN CORPUSCULAR HGB CONC 32 G/DL (32-36); MEAN CORPUSCULAR VOLUME 101 FL (80-99); MEAN PLATELET VOLUME 8.6 FL (7.4-10.4); MONOCYTES # (AUTO) 0.6 X 10^3 (0.0-1.0); MONOCYTES % (AUTO) 12 % (0-12); NEUTROPHILS # (AUTO) 3.7 X 10^3 (1.8-7.8); NEUTROPHILS % (AUTO) 77 % (42-75); PLATELET COUNT 231 10^3/uL (130-400); RED CELL DISTRIBUTION WIDTH 15.4 % (10.0-14.5); WHITE BLOOD COUNT 4.9 10^3/uL (4.3-11.0)
[2018-11-19 12:15] LABS: ALANINE AMINOTRANSFERASE 6 U/L (0-55); ALBUMIN 3.9 GM/DL (3.2-4.5); ALKALINE PHOSPHATASE 96 U/L (40-136); BILIRUBIN,TOTAL 0.3 MG/DL (0.1-1.0); BUN/CREATININE RATIO 21; CALCIUM 9.1 MG/DL (8.5-10.1); CARBON DIOXIDE 26 MMOL/L (21-32); CHLORIDE 108 MMOL/L (98-107); GFR ESTIMATED > 60; GLUCOSE 98 MG/DL (70-105); POTASSIUM 3.9 MMOL/L (3.6-5.0); SODIUM 141 MMOL/L (135-145); TOTAL PROTEIN 6.5 GM/DL (6.4-8.2)
[~2018-12-24] VITALS: Ht 160 cm; Wt 38.1 kg
[~2018-12-24 08:48] MED LIST changes: +ATEZOLIZUMAB 1,200 MG in NS (IVPB) CANCER CENTER 250 ML IV SCH; +BEVACIZUMAB IV SCH; +CARBOPLATIN IV SCH; +D5W IV SCH; +FOSAPREPITANT DIMEGLUMINE 150 MG in NS (IVPB) CANCER CENTER ONLY 150 ML IV SCH; -HOLD METFORMIN - RECEIVED CONTRAST 20 ML VIAL IV SCH; -IOHEXOL 350 MG/ML 100 ML (OMNIPAQUE 350) VIAL IV ONE; -NS 100 ML (IVPB) BAG IV ONE; +NS IV 1000 ML (CANCER CTR) IV SCH; +PALONOSETRON HCL 0.25 MG, DEXAMETHASONE INJECTION 10 MG in NS (IVPB) CANCER CENTER 50 ML IV SCH; +PEMBROLIZUMAB 200 MG in NS (IVPB) CANCER CENTER 50 ML IV SCH; +[UNRECOGNIZED DRUG - OTHER] IV SCH
[2018-12-24 09:40] LABS: BASOPHILS % (AUTO) 0 % (0-10); EOSINOPHILS % (AUTO) 0 % (0-10); HEMATOCRIT 38 % (35-52); HEMOGLOBIN 12.4 G/DL (11.5-16.0); LYMPHOCYTES # (AUTO) 0.2 X 10^3 (1.0-4.0); LYMPHOCYTES % (AUTO) 6 % (12-44); MEAN CORPUSCULAR HEMOGLOBIN 32 PG (25-34); MEAN CORPUSCULAR HGB CONC 33 G/DL (32-36); MEAN CORPUSCULAR VOLUME 98 FL (80-99); MEAN PLATELET VOLUME 9.2 FL (7.4-10.4); MONOCYTES # (AUTO) 0.1 X 10^3 (0.0-1.0); MONOCYTES % (AUTO) 2 % (0-12); NEUTROPHILS # (AUTO) 4.1 X 10^3 (1.8-7.8); NEUTROPHILS % (AUTO) 93 % (42-75); PLATELET COUNT 224 10^3/uL (130-400); RED CELL DISTRIBUTION WIDTH 13.5 % (10.0-14.5); WHITE BLOOD COUNT 4.4 10^3/uL (4.3-11.0)
[2018-12-24 10:03] LABS: ALANINE AMINOTRANSFERASE 8 U/L (0-55); ALBUMIN 4.3 GM/DL (3.2-4.5); ALKALINE PHOSPHATASE 115 U/L (40-136); BILIRUBIN,TOTAL 0.2 MG/DL (0.1-1.0); BUN/CREATININE RATIO 26; CALCIUM 9.9 MG/DL (8.5-10.1); CARBON DIOXIDE 22 MMOL/L (21-32); CHLORIDE 103 MMOL/L (98-107); CREATININE SERUM 0.72 MG/DL (0.60-1.30); GFR ESTIMATED > 60; GLUCOSE 161 MG/DL (70-105); POTASSIUM 4.3 MMOL/L (3.6-5.0); SODIUM 136 MMOL/L (135-145); TOTAL PROTEIN 7.2 GM/DL (6.4-8.2)
[2018-12-24] MEDS ORDERED: diphenhydrAMINE 50 MG/ML INJ (CANCER CENTER) ONE (10:24)
[2018-12-24] MEDS ORDERED: FAMOTIDINE 20MG/2ML IV (CANCER CTR) ONE (10:25)
== END 2019-01-15 | disposition home or self-care (01) ==
LOC: ONC 08:48
PROVIDERS: ATTEND Internal Medicine Hematology & Oncology
DX: Z51.11 Encounter for antineoplastic chemotherapy (principal); C21.0 Malignant neoplasm of anus, unspecified; C34.31 Malignant neoplasm of lower lobe, right bronchus or lung; I10 Essential (primary) hypertension; J44.9 Chronic obstructive pulmonary disease, unspecified; E27.9 Disorder of adrenal gland, unspecified; F17.210 Nicotine dependence, cigarettes, uncomplicated; Z80.3 Family history of malignant neoplasm of breast; Z79.899 Other long term (current) drug therapy; Z11.2 Encounter for screening for other bacterial diseases
CPT/HCPCS: 36415; 36591; 80048; 80053; 85025; 96367; 96375; 96413; 96415; 96417; 96523; 99213

== ENCOUNTER 2019-01-08 11:20 | Outpatient (RCR) | payer MEDICARE ==
[2019-01-01 11:07] LABS: HEMATOCRIT 39 % (35-52); HEMOGLOBIN 12.4 G/DL (11.5-16.0); MEAN CORPUSCULAR HEMOGLOBIN 32 PG (25-34); MEAN CORPUSCULAR VOLUME 100 FL (80-99); WHITE BLOOD COUNT 3.2 10^3/uL (4.3-11.0)
[2019-01-01 11:08] LABS: BASOPHILS % (AUTO) 1 % (0-10); EOSINOPHILS # (AUTO) 0.1 10^3/uL (0.0-0.3); EOSINOPHILS % (AUTO) 2 % (0-10); LYMPHOCYTES # (AUTO) 0.3 X 10^3 (1.0-4.0); LYMPHOCYTES % (AUTO) 9 % (12-44); MEAN CORPUSCULAR HGB CONC 32 G/DL (32-36); MEAN PLATELET VOLUME 9.8 FL (7.4-10.4); MONOCYTES # (AUTO) 0.2 X 10^3 (0.0-1.0); MONOCYTES % (AUTO) 6 % (0-12); NEUTROPHILS # (AUTO) 2.6 X 10^3 (1.8-7.8); NEUTROPHILS % (AUTO) 82 % (42-75); PLATELET COUNT 118 10^3/uL (130-400)
[2019-01-01 11:29] LABS: ALANINE AMINOTRANSFERASE 12 U/L (0-55); ALBUMIN 3.8 GM/DL (3.2-4.5); ALKALINE PHOSPHATASE 135 U/L (40-136); BILIRUBIN,TOTAL 0.2 MG/DL (0.1-1.0); BUN/CREATININE RATIO 30; CALCIUM 9.4 MG/DL (8.5-10.1); CARBON DIOXIDE 27 MMOL/L (21-32); CHLORIDE 100 MMOL/L (98-107); GFR ESTIMATED > 60; GLUCOSE 81 MG/DL (70-105); SODIUM 141 MMOL/L (135-145); TOTAL PROTEIN 6.5 GM/DL (6.4-8.2)
[~2019-01-08 11:20] MED LIST changes: -ATEZOLIZUMAB 1,200 MG in NS (IVPB) CANCER CENTER 250 ML IV SCH; -BEVACIZUMAB IV SCH; -CARBOPLATIN IV SCH; -D5W IV SCH; -FOSAPREPITANT DIMEGLUMINE 150 MG in NS (IVPB) CANCER CENTER ONLY 150 ML IV SCH; -NS IV 1000 ML (CANCER CTR) IV SCH; -PALONOSETRON HCL 0.25 MG, DEXAMETHASONE INJECTION 10 MG in NS (IVPB) CANCER CENTER 50 ML IV SCH; -PEMBROLIZUMAB 200 MG in NS (IVPB) CANCER CENTER 50 ML IV SCH; -[UNRECOGNIZED DRUG - OTHER] IV SCH
[2019-01-08 15:21] LABS: HEMATOCRIT 41 % (35-52); HEMOGLOBIN 13.4 G/DL (11.5-16.0); MEAN CORPUSCULAR HEMOGLOBIN 32 PG (25-34); MEAN CORPUSCULAR VOLUME 98 FL (80-99)
[2019-01-08 15:22] LABS: BASOPHILS % (AUTO) 2 % (0-10); EOSINOPHILS # (AUTO) 0.1 10^3/uL (0.0-0.3); EOSINOPHILS % (AUTO) 4 % (0-10); LYMPHOCYTES # (AUTO) 0.3 X 10^3 (1.0-4.0); LYMPHOCYTES % (AUTO) 24 % (12-44); MEAN CORPUSCULAR HGB CONC 33 G/DL (32-36); MEAN PLATELET VOLUME 9.9 FL (7.4-10.4); MONOCYTES # (AUTO) 0.5 X 10^3 (0.0-1.0); MONOCYTES % (AUTO) 39 % (0-12); NEUTROPHILS # (AUTO) 0.4 X 10^3 (1.8-7.8); NEUTROPHILS % (AUTO) 31 % (42-75); PLATELET COUNT 121 10^3/uL (130-400); RED CELL DISTRIBUTION WIDTH 13.2 % (10.0-14.5)
[2019-01-08 15:24] LABS: WHITE BLOOD COUNT 1.3 10^3/uL (4.3-11.0)
[2019-01-08 15:25] LABS: BUN/CREATININE RATIO 25; CALCIUM 9.7 MG/DL (8.5-10.1); CARBON DIOXIDE 26 MMOL/L (21-32); CHLORIDE 97 MMOL/L (98-107); CREATININE SERUM 0.68 MG/DL (0.60-1.30); GFR ESTIMATED > 60; GLUCOSE 103 MG/DL (70-105); SODIUM 138 MMOL/L (135-145)
== END 2019-04-01 | disposition home or self-care (01) ==
LOC: LAB FS 11:20
PROVIDERS: ATTEND Internal Medicine Hematology & Oncology
DX: C34.31 Malignant neoplasm of lower lobe, right bronchus or lung (principal)
CPT/HCPCS: 36415; 80048; 80053; 85025

== ENCOUNTER → 2019-02-13 | Outpatient (CLI) | payer MEDICARE ==
[~2019-02-13] MED LIST changes: +BARIUM SUSPENSION 2.1% (VANILLA SILQ) 450 ML PO ONE; +HOLD METFORMIN - RECEIVED CONTRAST 20 ML VIAL IV SCH; +IOHEXOL 350 MG/ML 100 ML (OMNIPAQUE 350) VIAL IV ONE; +NS 100 ML (IVPB) BAG IV ONE
--- NOTE | 2019-02-13 17:24 | Diagnostic Imaging Report ---
PROCEDURE: CT of the chest and pelvis with contrast and CT of the abdomen with and without contrast. TECHNIQUE: Precontrast acquisitions were acquired through the abdomen. Multiple contiguous axial images were obtained through the chest, abdomen, and pelvis after administration of intravenous contrast. Auto Exposure Controls were utilized during the CT exam to meet ALARA standards for radiation dose reduction. INDICATION: Non-small cell lung cancer. FINDINGS: The previous CT chest, abdomen, and pelvis exam of 10/17/2018 noted a 2.3 cm spiculated mass in the right lower lobe. That finding is again evident on this study and does not seem to have changed significantly in size. The prominent airspace opacities involving the right middle lobe seen on the prior exam have diminished. There is still some residual density in this area, however. The 5 mm nodule along the posterior aspect of the right upper lobe seen previously is again evident and no different (image [id number]). The lungs are otherwise generally clear. The lungs are hyperexpanded consistent with COPD. The previous study did note a 2.5 x 2.6 cm subcarinal mass. That density has decreased in size and now measures 1.3 x 1.6 cm. There is no new mediastinal or hilar adenopathy identified. The low-density nodules in the left lobe of the thyroid and isthmus seen previously are unchanged. The heart size is stable. Coronary artery calcifications are noted. The aorta is not abnormally dilated, and there is no sign of a dissection. There is no defect within the pulmonary arteries to indicate a pulmonary embolus. There is no obvious breast mass. As noted on the previous exam, there is a mixed density predominantly fatty mass involving the left adrenal gland. This mass measures approximately 2.6 x 4.0 cm as opposed to 3.0 x 4.1 cm previously. I do suspect that this is a benign process. The previous exam also identified rectal wall thickening. That finding is not quite as conspicuous on this exam. There is no clear evidence for a mass in this area. There is diverticulosis of the sigmoid and descending colon, but there is no sign of acute diverticulitis. The appendix is not well visualized, but there are no indirect signs of acute appendicitis. As noted on the prior exam, the uterus is surgically absent. The urinary bladder is distended by urine. There is no obvious bladder abnormality evident. The liver, spleen, pancreas, right adrenal gland, gallbladder, kidneys, aorta, and inferior vena cava show no sign of an acute abnormality. The small nonobstructive calculi within the kidneys seen previously are again evident. The stomach is not well distended and consequently difficult to assess. The bone windows show no sign of a fracture or of a destructive lesion. IMPRESSION: 1. The spiculated mass in the right lung base seen previously does not appear to have changed adversely. The right middle lobe does seem better aerated than on the prior exam, but there is still some residual density present. The subcarinal mass noted previously has decreased in size. 2. There is no acute cardiopulmonary abnormality identified. 3. The mixed-density mass associated with the left adrenal gland seen previously appears stable. Most likely, this is a benign process. 4. The rectal thickening noted on the prior exam is not as conspicuous on this study. There is no evidence for a rectal mass. 5. There is no acute abnormality of the abdomen or pelvis identified. Dictated by: Dictated on workstation # [id number]
== END ==
LOC: RAD 12:09
PROVIDERS: ATTEND Internal Medicine Hematology & Oncology
DX: C34.31 Malignant neoplasm of lower lobe, right bronchus or lung (principal); C21.1 Malignant neoplasm of anal canal; E27.8 Other specified disorders of adrenal gland
CPT/HCPCS: 71260; 74178

== ENCOUNTER → 2019-02-25 | Outpatient (CLI) | payer MEDICARE ==
[~2019-02-25] MED LIST changes: -BARIUM SUSPENSION 2.1% (VANILLA SILQ) 450 ML PO ONE; -HOLD METFORMIN - RECEIVED CONTRAST 20 ML VIAL IV SCH; -IOHEXOL 350 MG/ML 100 ML (OMNIPAQUE 350) VIAL IV ONE; -NS 100 ML (IVPB) BAG IV ONE
--- NOTE | 2019-02-25 13:06 | Diagnostic Imaging Report ---
INDICATION: Shortness of breath and leg weakness. TIME OF EXAM: 12:50 p.m. Correlation is made with prior chest from 06/25/2018. FINDINGS: Left chest wall port has tip overlying the SVC. There is a patchy infiltrate that has developed in the right base, suggestive of pneumonia. Lungs are hyperinflated consistent with COPD. No effusion or pneumothorax is seen. IMPRESSION: Development of right basilar infiltrate since exam from 06/25/2018. Dictated by: Dictated on workstation # [id number]
== END ==
LOC: RAD FS 12:30
PROVIDERS: ATTEND Nurse Practitioner Family
DX: R06.02 Shortness of breath (principal); R53.1 Weakness; Z95.828 Presence of other vascular implants and grafts
CPT/HCPCS: 71046

== ENCOUNTER → 2019-02-25 | Outpatient (CLI) | payer MEDICARE ==
[2019-02-25 13:14] LABS: BASOPHILS % (AUTO) 0 % (0-10); EOSINOPHILS % (AUTO) 0 % (0-10); HEMATOCRIT 38 % (35-52); HEMOGLOBIN 12.2 G/DL (11.5-16.0); LYMPHOCYTES % (AUTO) 2 % (12-44); MEAN CORPUSCULAR HEMOGLOBIN 31 PG (25-34); MEAN CORPUSCULAR HGB CONC 32 G/DL (32-36); MEAN CORPUSCULAR VOLUME 96 FL (80-99); MEAN PLATELET VOLUME 9.5 FL (7.4-10.4); MONOCYTES % (AUTO) 7 % (0-12); NEUTROPHILS % (AUTO) 89 % (42-75); PLATELET COUNT 284 10^3/uL (130-400); RED CELL DISTRIBUTION WIDTH 14.6 % (10.0-14.5); WHITE BLOOD COUNT 13.1 10^3/uL (4.3-11.0)
[2019-02-25 13:15] LABS: BASOPHILS # (AUTO) 0.1 10^3/uL (0.0-0.1); LYMPHOCYTES # (AUTO) 0.3 X 10^3 (1.0-4.0); NEUTROPHILS # (AUTO) 11.6 X 10^3 (1.8-7.8)
[2019-02-25 14:05] LABS: BAND NEUTROPHILS 18 %; BASOPHILS % (MANUAL) 0 %; EOSINOPHILS % (MANUAL) 0 %; LYMPHOCYTES % (MANUAL) 3 %; MONOCYTES % (MANUAL) 5 %; NEUTROPHILS % (MANUAL) 74 %
[2019-02-25 14:06] LABS: NUCLEATED RED BLOOD CELLS 1
== END ==
LOC: LAB FS 12:26
PROVIDERS: ATTEND Nurse Practitioner Family
DX: R06.02 Shortness of breath (principal)
CPT/HCPCS: 36415; 85007; 85027

== ENCOUNTER 2019-04-10 08:17 | Outpatient (RCR) | payer OTHER ==
[2019-01-16 09:57] LABS: BASOPHILS % (AUTO) 0 % (0-10); EOSINOPHILS % (AUTO) 0 % (0-10); HEMATOCRIT 40 % (35-52); LYMPHOCYTES # (AUTO) 0.3 X 10^3 (1.0-4.0); LYMPHOCYTES % (AUTO) 4 % (12-44); MEAN CORPUSCULAR HEMOGLOBIN 31 PG (25-34); MEAN CORPUSCULAR HGB CONC 33 G/DL (32-36); MEAN CORPUSCULAR VOLUME 95 FL (80-99); MEAN PLATELET VOLUME 9.3 FL (7.4-10.4); MONOCYTES # (AUTO) 0.1 X 10^3 (0.0-1.0); MONOCYTES % (AUTO) 1 % (0-12); NEUTROPHILS % (AUTO) 94 % (42-75); PLATELET COUNT 183 10^3/uL (130-400); WHITE BLOOD COUNT 6.3 10^3/uL (4.3-11.0)
[2019-01-16 10:15] LABS: ALANINE AMINOTRANSFERASE 14 U/L (0-55); ALBUMIN 4.3 GM/DL (3.2-4.5); ALKALINE PHOSPHATASE 118 U/L (40-136); BILIRUBIN,TOTAL 0.2 MG/DL (0.1-1.0); BUN/CREATININE RATIO 31; CALCIUM 9.7 MG/DL (8.5-10.1); CARBON DIOXIDE 25 MMOL/L (21-32); CHLORIDE 103 MMOL/L (98-107); CREATININE SERUM 0.75 MG/DL (0.60-1.30); GFR ESTIMATED > 60; GLUCOSE 140 MG/DL (70-105); POTASSIUM 4.5 MMOL/L (3.6-5.0); SODIUM 137 MMOL/L (135-145); TOTAL PROTEIN 7.6 GM/DL (6.4-8.2)
[2019-01-16 12:09] LABS: URINE CREATININE FOR RATIO 21 MG/DL (30-125); URINE PROTEIN FOR RATIO ONLY < 6 MG/DL (6-12)
[2019-02-06 10:48] LABS: BASOPHILS % (AUTO) 0 % (0-10); EOSINOPHILS % (AUTO) 0 % (0-10); HEMATOCRIT 39 % (35-52); HEMOGLOBIN 12.7 G/DL (11.5-16.0); LYMPHOCYTES # (AUTO) 0.3 X 10^3 (1.0-4.0); LYMPHOCYTES % (AUTO) 4 % (12-44); MEAN CORPUSCULAR HEMOGLOBIN 31 PG (25-34); MEAN CORPUSCULAR HGB CONC 33 G/DL (32-36); MEAN CORPUSCULAR VOLUME 95 FL (80-99); MEAN PLATELET VOLUME 8.9 FL (7.4-10.4); MONOCYTES # (AUTO) 0.2 X 10^3 (0.0-1.0); MONOCYTES % (AUTO) 2 % (0-12); NEUTROPHILS # (AUTO) 7.8 X 10^3 (1.8-7.8); NEUTROPHILS % (AUTO) 94 % (42-75); PLATELET COUNT 160 10^3/uL (130-400); RED CELL DISTRIBUTION WIDTH 14.4 % (10.0-14.5); WHITE BLOOD COUNT 8.3 10^3/uL (4.3-11.0)
[2019-02-06 11:09] LABS: ALANINE AMINOTRANSFERASE 14 U/L (0-55); ALBUMIN 4.4 GM/DL (3.2-4.5); ALKALINE PHOSPHATASE 105 U/L (40-136); BILIRUBIN,TOTAL 0.2 MG/DL (0.1-1.0); BUN/CREATININE RATIO 34; CALCIUM 10.1 MG/DL (8.5-10.1); CARBON DIOXIDE 23 MMOL/L (21-32); CHLORIDE 100 MMOL/L (98-107); CREATININE SERUM 0.76 MG/DL (0.60-1.30); GFR ESTIMATED > 60; GLUCOSE 117 MG/DL (70-105); POTASSIUM 4.6 MMOL/L (3.6-5.0); SODIUM 135 MMOL/L (135-145); TOTAL PROTEIN 7.6 GM/DL (6.4-8.2)
[2019-02-27 10:12] LABS: BASOPHILS % (AUTO) 0 % (0-10); EOSINOPHILS % (AUTO) 0 % (0-10); HEMATOCRIT 33 % (35-52); LYMPHOCYTES # (AUTO) 0.4 X 10^3 (1.0-4.0); LYMPHOCYTES % (AUTO) 3 % (12-44); MEAN CORPUSCULAR HEMOGLOBIN 31 PG (25-34); MEAN CORPUSCULAR HGB CONC 33 G/DL (32-36); MEAN CORPUSCULAR VOLUME 95 FL (80-99); MEAN PLATELET VOLUME 9.4 FL (7.4-10.4); MONOCYTES # (AUTO) 0.4 X 10^3 (0.0-1.0); MONOCYTES % (AUTO) 4 % (0-12); NEUTROPHILS # (AUTO) 11.6 X 10^3 (1.8-7.8); NEUTROPHILS % (AUTO) 93 % (42-75); PLATELET COUNT 303 10^3/uL (130-400); RED CELL DISTRIBUTION WIDTH 14.8 % (10.0-14.5); WHITE BLOOD COUNT 12.4 10^3/uL (4.3-11.0)
[2019-02-27 10:30] LABS: ALANINE AMINOTRANSFERASE 34 U/L (0-55); ALBUMIN 3.4 GM/DL (3.2-4.5); ALKALINE PHOSPHATASE 302 U/L (40-136); BILIRUBIN,TOTAL 0.3 MG/DL (0.1-1.0); BUN/CREATININE RATIO 35; CALCIUM 9.2 MG/DL (8.5-10.1); CARBON DIOXIDE 25 MMOL/L (21-32); CHLORIDE 101 MMOL/L (98-107); CREATININE SERUM 0.65 MG/DL (0.60-1.30); GFR ESTIMATED > 60; GLUCOSE 114 MG/DL (70-105); POTASSIUM 3.6 MMOL/L (3.6-5.0); SODIUM 138 MMOL/L (135-145); TOTAL PROTEIN 6.5 GM/DL (6.4-8.2)
[2019-03-20 09:23] LABS: BASOPHILS % (AUTO) 0 % (0-10); EOSINOPHILS % (AUTO) 0 % (0-10); HEMATOCRIT 35 % (35-52); HEMOGLOBIN 11.1 G/DL (11.5-16.0); LYMPHOCYTES # (AUTO) 0.2 X 10^3 (1.0-4.0); LYMPHOCYTES % (AUTO) 2 % (12-44); MEAN CORPUSCULAR HEMOGLOBIN 32 PG (25-34); MEAN CORPUSCULAR HGB CONC 32 G/DL (32-36); MEAN CORPUSCULAR VOLUME 100 FL (80-99); MEAN PLATELET VOLUME 8.9 FL (7.4-10.4); MONOCYTES % (AUTO) 0 % (0-12); NEUTROPHILS # (AUTO) 7.2 X 10^3 (1.8-7.8); NEUTROPHILS % (AUTO) 98 % (42-75); PLATELET COUNT 323 10^3/uL (130-400); RED CELL DISTRIBUTION WIDTH 18.5 % (10.0-14.5); WHITE BLOOD COUNT 7.4 10^3/uL (4.3-11.0)
[2019-03-20 09:50] LABS: ALANINE AMINOTRANSFERASE 9 U/L (0-55); ALKALINE PHOSPHATASE 113 U/L (40-136); BILIRUBIN,TOTAL 0.3 MG/DL (0.1-1.0); BUN/CREATININE RATIO 22; CALCIUM 9.9 MG/DL (8.5-10.1); CARBON DIOXIDE 19 MMOL/L (21-32); CHLORIDE 103 MMOL/L (98-107); CREATININE SERUM 0.78 MG/DL (0.60-1.30); GFR ESTIMATED > 60; GLUCOSE 270 MG/DL (70-105); POTASSIUM 3.9 MMOL/L (3.6-5.0); SODIUM 138 MMOL/L (135-145); TOTAL PROTEIN 7.4 GM/DL (6.4-8.2)
[~2019-04-10] VITALS: Ht 160 cm; Wt 37.2 kg
[~2019-04-10 08:17] MED LIST changes: +ALTEPLASE 2 MG (CATHFLO) CANCER CENTER IV ONE; +ATEZOLIZUMAB 1,200 MG in NS (IVPB) CANCER CENTER 250 ML IV SCH; +BEVACIZUMAB IV SCH; +CARBOPLATIN IV SCH; +D5W IV SCH; +FAMOTIDINE 20MG/2ML IV (CANCER CTR) IV SCH; +FOSAPREPITANT DIMEGLUMINE 150 MG in NS (IVPB) CANCER CENTER ONLY 150 ML IV SCH; +NS IV 1000 ML (CANCER CTR) IV SCH; +PALONOSETRON HCL 0.25 MG, DEXAMETHASONE INJECTION 10 MG in NS (IVPB) CANCER CENTER 50 ML IV SCH; +[UNRECOGNIZED DRUG - OTHER] IV SCH; +amLODIPine 10 MG (NORVASC) TAB PO ONE; +diphenhydrAMINE 25 MG TAB (BENADRYL) CANCER CENTER PO ONE; +diphenhydrAMINE 25 MG TAB (BENADRYL) CANCER CENTER PO SCH; +diphenhydrAMINE 50 MG/ML INJ (CANCER CENTER) ONE; +methylPREDNISolone 125 MG/2 ML (SOLU-MEDROL) CANCER CTR ONE
[2019-04-10 08:34] LABS: BASOPHILS # (AUTO) 0.2 10^3/uL (0.0-0.1); BASOPHILS % (AUTO) 2 % (0-10); EOSINOPHILS % (AUTO) 0 % (0-10); HEMATOCRIT 38 % (35-52); HEMOGLOBIN 11.6 G/DL (11.5-16.0); LYMPHOCYTES # (AUTO) 0.7 X 10^3 (1.0-4.0); LYMPHOCYTES % (AUTO) 4 % (12-44); MEAN CORPUSCULAR HEMOGLOBIN 32 PG (25-34); MEAN CORPUSCULAR HGB CONC 31 G/DL (32-36); MEAN CORPUSCULAR VOLUME 102 FL (80-99); MEAN PLATELET VOLUME 9.3 FL (7.4-10.4); MONOCYTES # (AUTO) 0.3 X 10^3 (0.0-1.0); MONOCYTES % (AUTO) 2 % (0-12); NEUTROPHILS # (AUTO) 14.4 X 10^3 (1.8-7.8); NEUTROPHILS % (AUTO) 92 % (42-75); PLATELET COUNT 309 10^3/uL (130-400); RED CELL DISTRIBUTION WIDTH 17.8 % (10.0-14.5); WHITE BLOOD COUNT 15.6 10^3/uL (4.3-11.0)
[2019-04-10 08:50] LABS: ALANINE AMINOTRANSFERASE 20 U/L (0-55); ALBUMIN 3.8 GM/DL (3.2-4.5); ALKALINE PHOSPHATASE 244 U/L (40-136); BILIRUBIN,TOTAL 0.3 MG/DL (0.1-1.0); BUN/CREATININE RATIO 29; CALCIUM 10.3 MG/DL (8.5-10.1); CARBON DIOXIDE 21 MMOL/L (21-32); CHLORIDE 96 MMOL/L (98-107); CREATININE SERUM 0.77 MG/DL (0.60-1.30); GFR ESTIMATED > 60; GLUCOSE 168 MG/DL (70-105); POTASSIUM 4.2 MMOL/L (3.6-5.0); SODIUM 136 MMOL/L (135-145); TOTAL PROTEIN 7.2 GM/DL (6.4-8.2)
== END 2019-04-16 | disposition home or self-care (01) ==
LOC: ONC 08:17
PROVIDERS: ATTEND Internal Medicine Hematology & Oncology
DX: Z51.11 Encounter for antineoplastic chemotherapy (principal); C21.0 Malignant neoplasm of anus, unspecified; C34.31 Malignant neoplasm of lower lobe, right bronchus or lung; I10 Essential (primary) hypertension; J44.9 Chronic obstructive pulmonary disease, unspecified; E27.9 Disorder of adrenal gland, unspecified; F17.210 Nicotine dependence, cigarettes, uncomplicated; Z80.3 Family history of malignant neoplasm of breast; Z79.899 Other long term (current) drug therapy; Z11.2 Encounter for screening for other bacterial diseases
CPT/HCPCS: 36591; 80053; 82570; 84156; 85025; 96367; 96375; 96411; 96413; 96415; 96417; 99213

== ENCOUNTER 2019-04-18 08:12 | Outpatient (RCR) | payer OTHER ==
[~2019-04-18 08:12] MED LIST changes: -ALTEPLASE 2 MG (CATHFLO) CANCER CENTER IV ONE; -CARBOPLATIN IV SCH; -D5W IV SCH; +NORMAL SALINE IV SCH; +PACLITAXEL IV SCH; -amLODIPine 10 MG (NORVASC) TAB PO ONE; -diphenhydrAMINE 25 MG TAB (BENADRYL) CANCER CENTER PO ONE; -diphenhydrAMINE 50 MG/ML INJ (CANCER CENTER) ONE; -methylPREDNISolone 125 MG/2 ML (SOLU-MEDROL) CANCER CTR ONE
[2019-04-18] MEDS ORDERED: ALTEPLASE 2 MG (CATHFLO) CANCER CENTER IV ONE (08:45)
[2019-04-18 09:36] LABS: BASOPHILS % (AUTO) 0 % (0-10); EOSINOPHILS % (AUTO) 0 % (0-10); HEMATOCRIT 30 % (35-52); HEMOGLOBIN 9.3 G/DL (11.5-16.0); LYMPHOCYTES # (AUTO) 0.2 X 10^3 (1.0-4.0); LYMPHOCYTES % (AUTO) 3 % (12-44); MEAN CORPUSCULAR HEMOGLOBIN 31 PG (25-34); MEAN CORPUSCULAR HGB CONC 31 G/DL (32-36); MEAN CORPUSCULAR VOLUME 101 FL (80-99); MEAN PLATELET VOLUME 8.9 FL (7.4-10.4); MONOCYTES % (AUTO) 1 % (0-12); NEUTROPHILS # (AUTO) 7.7 X 10^3 (1.8-7.8); NEUTROPHILS % (AUTO) 97 % (42-75); PLATELET COUNT 288 10^3/uL (130-400); RED CELL DISTRIBUTION WIDTH 17.5 % (10.0-14.5)
[2019-04-18 09:56] LABS: BUN/CREATININE RATIO 36; CALCIUM 9.2 MG/DL (8.5-10.1); CARBON DIOXIDE 18 MMOL/L (21-32); CHLORIDE 103 MMOL/L (98-107); CREATININE SERUM 0.61 MG/DL (0.60-1.30); GFR ESTIMATED > 60; GLUCOSE 182 MG/DL (70-105); POTASSIUM 4.1 MMOL/L (3.6-5.0); SODIUM 136 MMOL/L (135-145)
[2019-04-18] MEDS ORDERED: ONDANSETRON MDV (CANCER CENTER 8 MG, DEXAMETHASONE INJECTION 10 MG in NS (IVPB) CANCER ... IV SCH (10:00)
[2019-04-25] MEDS ORDERED: ALBU18HF2 INH (08:48)
[2019-04-25] MEDS ORDERED: PANT20TA3 PO (08:48)
[2019-04-25] MEDS ORDERED: OXYC5CAP18 PO (08:48)
[2019-04-25] MEDS ORDERED: AMOX1TAB12 PO (08:48)
[2019-04-25] MEDS ORDERED: ACET-2267 PO (08:48)
[2019-04-25] MEDS ORDERED: GUAI-367 PO (08:49)
[2019-04-25] MEDS ORDERED: PROM5SYR PO (08:55)
[2019-04-25] MEDS ORDERED: MEGE400O5 PO (08:56)
[2019-04-29] MEDS ORDERED: CEFD300C3 PO (12:06)
[2019-04-29] MEDS ORDERED: CELE100C PO (12:06)
[2019-04-29] MEDS ORDERED: OXYC5CAP18 PO (12:06)
== END 2019-07-17 | disposition home or self-care (01) ==
LOC: ONC 08:12
PROVIDERS: ATTEND Internal Medicine Hematology & Oncology
DX: Z51.11 Encounter for antineoplastic chemotherapy (principal); C21.0 Malignant neoplasm of anus, unspecified; C34.31 Malignant neoplasm of lower lobe, right bronchus or lung; I10 Essential (primary) hypertension; J44.9 Chronic obstructive pulmonary disease, unspecified; E27.9 Disorder of adrenal gland, unspecified; F17.210 Nicotine dependence, cigarettes, uncomplicated; Z80.3 Family history of malignant neoplasm of breast; Z79.899 Other long term (current) drug therapy
CPT/HCPCS: 36593; 80048; 85025; 96375; 96413; 96415; 96417

== ENCOUNTER → 2019-04-22 | Outpatient (RCR) | payer MEDICARE ==
[2019-01-22 11:23] LABS: HEMATOCRIT 47 % (35-52); HEMOGLOBIN 15.3 G/DL (11.5-16.0); MEAN CORPUSCULAR HEMOGLOBIN 32 PG (25-34); WHITE BLOOD COUNT 4.6 10^3/uL (4.3-11.0)
[2019-01-22 11:24] LABS: BASOPHILS % (AUTO) 1 % (0-10); EOSINOPHILS % (AUTO) 0 % (0-10); LYMPHOCYTES % (AUTO) 8 % (12-44); MEAN CORPUSCULAR HGB CONC 33 G/DL (32-36); MEAN CORPUSCULAR VOLUME 98 FL (80-99); MONOCYTES % (AUTO) 2 % (0-12); NEUTROPHILS # (AUTO) 3.9 X 10^3 (1.8-7.8); NEUTROPHILS % (AUTO) 87 % (42-75); PLATELET COUNT 133 10^3/uL (130-400); RED CELL DISTRIBUTION WIDTH 13.5 % (10.0-14.5)
[2019-01-22 11:25] LABS: BASOPHILS # (AUTO) 0.1 10^3/uL (0.0-0.1); LYMPHOCYTES # (AUTO) 0.4 X 10^3 (1.0-4.0); MONOCYTES # (AUTO) 0.1 X 10^3 (0.0-1.0)
[2019-01-22 11:52] LABS: BUN/CREATININE RATIO 30; CALCIUM 9.5 MG/DL (8.5-10.1); CARBON DIOXIDE 26 MMOL/L (21-32); CHLORIDE 87 MMOL/L (98-107); GFR ESTIMATED > 60; GLUCOSE 108 MG/DL (70-105); POTASSIUM 3.8 MMOL/L (3.6-5.0); SODIUM 131 MMOL/L (135-145)
[2019-01-29 12:00] LABS: BUN/CREATININE RATIO 26; CALCIUM 9.5 MG/DL (8.5-10.1); CARBON DIOXIDE 25 MMOL/L (21-32); CHLORIDE 95 MMOL/L (98-107); CREATININE SERUM 0.78 MG/DL (0.60-1.30); GFR ESTIMATED > 60; GLUCOSE 120 MG/DL (70-105); POTASSIUM 3.9 MMOL/L (3.6-5.0); SODIUM 138 MMOL/L (135-145)
[2019-01-29 12:10] LABS: HEMATOCRIT 40 % (35-52); LYMPHOCYTES % (AUTO) 21 % (12-44); MEAN CORPUSCULAR HEMOGLOBIN 32 PG (25-34); MEAN CORPUSCULAR HGB CONC 33 G/DL (32-36); MEAN CORPUSCULAR VOLUME 98 FL (80-99); MEAN PLATELET VOLUME 9.7 FL (7.4-10.4); MONOCYTES % (AUTO) 26 % (0-12); PLATELET COUNT 168 10^3/uL (130-400); WHITE BLOOD COUNT 2.3 10^3/uL (4.3-11.0)
[2019-01-29 12:11] LABS: BASOPHILS % (AUTO) 1 % (0-10); EOSINOPHILS % (AUTO) 1 % (0-10); LYMPHOCYTES # (AUTO) 0.5 X 10^3 (1.0-4.0); MONOCYTES # (AUTO) 0.6 X 10^3 (0.0-1.0); NEUTROPHILS # (AUTO) 1.2 X 10^3 (1.8-7.8); NEUTROPHILS % (AUTO) 51 % (42-75)
[2019-02-12 12:12] LABS: HEMATOCRIT 42 % (35-52); HEMOGLOBIN 13.8 G/DL (11.5-16.0); MEAN CORPUSCULAR HEMOGLOBIN 32 PG (25-34); MEAN CORPUSCULAR VOLUME 97 FL (80-99); WHITE BLOOD COUNT 7.2 10^3/uL (4.3-11.0)
[2019-02-12 12:13] LABS: BASOPHILS # (AUTO) 0.1 10^3/uL (0.0-0.1); BASOPHILS % (AUTO) 1 % (0-10); EOSINOPHILS % (AUTO) 0 % (0-10); LYMPHOCYTES # (AUTO) 0.4 X 10^3 (1.0-4.0); LYMPHOCYTES % (AUTO) 5 % (12-44); MEAN CORPUSCULAR HGB CONC 33 G/DL (32-36); MEAN PLATELET VOLUME 10.3 FL (7.4-10.4); MONOCYTES # (AUTO) 0.3 X 10^3 (0.0-1.0); MONOCYTES % (AUTO) 4 % (0-12); NEUTROPHILS # (AUTO) 6.5 X 10^3 (1.8-7.8); NEUTROPHILS % (AUTO) 90 % (42-75); PLATELET COUNT 117 10^3/uL (130-400); RED CELL DISTRIBUTION WIDTH 13.9 % (10.0-14.5)
[2019-02-12 12:39] LABS: POTASSIUM 3.9 MMOL/L (3.6-5.0); SODIUM 136 MMOL/L (135-145)
[2019-02-12 12:40] LABS: BUN/CREATININE RATIO 40; CALCIUM 9.6 MG/DL (8.5-10.1); CARBON DIOXIDE 26 MMOL/L (21-32); CHLORIDE 95 MMOL/L (98-107); CREATININE SERUM 0.63 MG/DL (0.60-1.30); GFR ESTIMATED > 60; GLUCOSE 110 MG/DL (70-105)
[2019-02-19 12:40] LABS: EOSINOPHILS % (AUTO) 0 % (0-10); HEMATOCRIT 39 % (35-52); HEMOGLOBIN 12.7 G/DL (11.5-16.0); LYMPHOCYTES % (AUTO) 5 % (12-44); MEAN CORPUSCULAR HEMOGLOBIN 32 PG (25-34); MEAN CORPUSCULAR HGB CONC 33 G/DL (32-36); MEAN CORPUSCULAR VOLUME 97 FL (80-99); MEAN PLATELET VOLUME 9.5 FL (7.4-10.4); MONOCYTES % (AUTO) 16 % (0-12); NEUTROPHILS % (AUTO) 76 % (42-75); PLATELET COUNT 220 10^3/uL (130-400); RED CELL DISTRIBUTION WIDTH 14.4 % (10.0-14.5); WHITE BLOOD COUNT 5.8 10^3/uL (4.3-11.0)
[2019-02-19 12:41] LABS: BASOPHILS # (AUTO) 0.1 10^3/uL (0.0-0.1); BASOPHILS % (AUTO) 1 % (0-10); LYMPHOCYTES # (AUTO) 0.3 X 10^3 (1.0-4.0); MONOCYTES # (AUTO) 0.9 X 10^3 (0.0-1.0); NEUTROPHILS # (AUTO) 4.4 X 10^3 (1.8-7.8)
[2019-02-19 13:04] LABS: BUN/CREATININE RATIO 27; CALCIUM 9.5 MG/DL (8.5-10.1); CARBON DIOXIDE 26 MMOL/L (21-32); CHLORIDE 95 MMOL/L (98-107); CREATININE SERUM 0.56 MG/DL (0.60-1.30); GFR ESTIMATED > 60; GLUCOSE 113 MG/DL (70-105); POTASSIUM 3.6 MMOL/L (3.6-5.0); SODIUM 137 MMOL/L (135-145)
[2019-03-05 11:46] LABS: HEMATOCRIT 38 % (35-52); HEMOGLOBIN 11.8 G/DL (11.5-16.0); LYMPHOCYTES % (AUTO) 4 % (12-44); MEAN CORPUSCULAR HEMOGLOBIN 31 PG (25-34); MEAN CORPUSCULAR HGB CONC 32 G/DL (32-36); MEAN CORPUSCULAR VOLUME 99 FL (80-99); MEAN PLATELET VOLUME 9.1 FL (7.4-10.4); MONOCYTES % (AUTO) 7 % (0-12); NEUTROPHILS % (AUTO) 84 % (42-75); PLATELET COUNT 256 10^3/uL (130-400); RED CELL DISTRIBUTION WIDTH 15.5 % (10.0-14.5); WHITE BLOOD COUNT 13.3 10^3/uL (4.3-11.0)
[2019-03-05 11:48] LABS: BASOPHILS # (AUTO) 0.1 10^3/uL (0.0-0.1); BASOPHILS % (AUTO) 0 % (0-10); EOSINOPHILS # (AUTO) 0.1 10^3/uL (0.0-0.3); EOSINOPHILS % (AUTO) 1 % (0-10); LYMPHOCYTES # (AUTO) 0.6 X 10^3 (1.0-4.0); MONOCYTES # (AUTO) 0.9 X 10^3 (0.0-1.0); NEUTROPHILS # (AUTO) 11.2 X 10^3 (1.8-7.8)
[2019-03-05 11:56] LABS: BUN/CREATININE RATIO 27; CARBON DIOXIDE 26 MMOL/L (21-32); CHLORIDE 96 MMOL/L (98-107); CREATININE SERUM 0.55 MG/DL (0.60-1.30); GFR ESTIMATED > 60; POTASSIUM 3.7 MMOL/L (3.6-5.0); SODIUM 136 MMOL/L (135-145)
[2019-03-05 11:57] LABS: GLUCOSE 91 MG/DL (70-105)
[2019-03-12 11:58] LABS: HEMATOCRIT 37 % (35-52); HEMOGLOBIN 11.4 G/DL (11.5-16.0); MEAN CORPUSCULAR HEMOGLOBIN 32 PG (25-34); MEAN CORPUSCULAR VOLUME 102 FL (80-99); WHITE BLOOD COUNT 11.5 10^3/uL (4.3-11.0)
[2019-03-12 11:59] LABS: BASOPHILS # (AUTO) 0.1 10^3/uL (0.0-0.1); BASOPHILS % (AUTO) 1 % (0-10); EOSINOPHILS # (AUTO) 0.1 10^3/uL (0.0-0.3); EOSINOPHILS % (AUTO) 1 % (0-10); LYMPHOCYTES # (AUTO) 0.7 X 10^3 (1.0-4.0); LYMPHOCYTES % (AUTO) 6 % (12-44); MEAN CORPUSCULAR HGB CONC 31 G/DL (32-36); MEAN PLATELET VOLUME 9.1 FL (7.4-10.4); MONOCYTES # (AUTO) 0.8 X 10^3 (0.0-1.0); MONOCYTES % (AUTO) 7 % (0-12); NEUTROPHILS # (AUTO) 9.8 X 10^3 (1.8-7.8); NEUTROPHILS % (AUTO) 85 % (42-75); PLATELET COUNT 302 10^3/uL (130-400); RED CELL DISTRIBUTION WIDTH 17.1 % (10.0-14.5)
[2019-03-12 12:21] LABS: BUN/CREATININE RATIO 38; CARBON DIOXIDE 26 MMOL/L (21-32); CHLORIDE 101 MMOL/L (98-107); CREATININE SERUM 0.52 MG/DL (0.60-1.30); GFR ESTIMATED > 60; GLUCOSE 98 MG/DL (70-105); POTASSIUM 4.2 MMOL/L (3.6-5.0); SODIUM 139 MMOL/L (135-145)
[2019-03-12 12:22] LABS: CALCIUM 9.5 MG/DL (8.5-10.1)
[2019-03-28 14:29] LABS: HEMATOCRIT 32 % (35-52); HEMOGLOBIN 9.9 G/DL (11.5-16.0); MEAN CORPUSCULAR HEMOGLOBIN 32 PG (25-34); MEAN CORPUSCULAR HGB CONC 31 G/DL (32-36); MEAN CORPUSCULAR VOLUME 104 FL (80-99); MEAN PLATELET VOLUME 10.4 FL (7.4-10.4); NEUTROPHILS % (AUTO) 82 % (42-75); PLATELET COUNT 187 10^3/uL (130-400); RED CELL DISTRIBUTION WIDTH 16.9 % (10.0-14.5); WHITE BLOOD COUNT 5.5 10^3/uL (4.3-11.0)
[2019-03-28 14:30] LABS: BASOPHILS % (AUTO) 0 % (0-10); EOSINOPHILS # (AUTO) 0.1 10^3/uL (0.0-0.3); EOSINOPHILS % (AUTO) 1 % (0-10); LYMPHOCYTES # (AUTO) 0.5 X 10^3 (1.0-4.0); LYMPHOCYTES % (AUTO) 8 % (12-44); MONOCYTES # (AUTO) 0.4 X 10^3 (0.0-1.0); MONOCYTES % (AUTO) 8 % (0-12); NEUTROPHILS # (AUTO) 4.5 X 10^3 (1.8-7.8)
[2019-03-28 14:52] LABS: BUN/CREATININE RATIO 34; CALCIUM 9.3 MG/DL (8.5-10.1); CARBON DIOXIDE 22 MMOL/L (21-32); CHLORIDE 98 MMOL/L (98-107); CREATININE SERUM 0.53 MG/DL (0.60-1.30); GFR ESTIMATED > 60; GLUCOSE 93 MG/DL (70-105); SODIUM 135 MMOL/L (135-145)
[2019-04-03 14:49] LABS: HEMOGLOBIN 10.2 G/DL (11.5-16.0); MEAN CORPUSCULAR HEMOGLOBIN 32 PG (25-34); WHITE BLOOD COUNT 8.6 10^3/uL (4.3-11.0)
[2019-04-03 14:50] LABS: BASOPHILS # (AUTO) 0.1 10^3/uL (0.0-0.1); BASOPHILS % (AUTO) 1 % (0-10); EOSINOPHILS % (AUTO) 0 % (0-10); HEMATOCRIT 32 % (35-52); LYMPHOCYTES # (AUTO) 0.3 X 10^3 (1.0-4.0); LYMPHOCYTES % (AUTO) 3 % (12-44); MEAN CORPUSCULAR HGB CONC 32 G/DL (32-36); MEAN CORPUSCULAR VOLUME 101 FL (80-99); MEAN PLATELET VOLUME 9.2 FL (7.4-10.4); MONOCYTES # (AUTO) 1.6 X 10^3 (0.0-1.0); MONOCYTES % (AUTO) 18 % (0-12); NEUTROPHILS # (AUTO) 6.7 X 10^3 (1.8-7.8); NEUTROPHILS % (AUTO) 77 % (42-75); PLATELET COUNT 325 10^3/uL (130-400); RED CELL DISTRIBUTION WIDTH 16.2 % (10.0-14.5)
[2019-04-03 15:50] LABS: BUN/CREATININE RATIO 37; CALCIUM 9.2 MG/DL (8.5-10.1); CARBON DIOXIDE 20 MMOL/L (21-32); CHLORIDE 93 MMOL/L (98-107); CREATININE SERUM 0.68 MG/DL (0.60-1.30); GFR ESTIMATED > 60; GLUCOSE 113 MG/DL (70-105); POTASSIUM 3.7 MMOL/L (3.6-5.0); SODIUM 131 MMOL/L (135-145)
[~2019-04-22] MED LIST changes: +ACET-2267 PO; +ALBU18HF2 INH; +AMOX1TAB12 PO; -ATEZOLIZUMAB 1,200 MG in NS (IVPB) CANCER CENTER 250 ML IV SCH; -BEVACIZUMAB IV SCH; +CEFD300C3 PO; +CELE100C PO; -FAMOTIDINE 20MG/2ML IV (CANCER CTR) IV SCH; -FOSAPREPITANT DIMEGLUMINE 150 MG in NS (IVPB) CANCER CENTER ONLY 150 ML IV SCH; +GUAI-367 PO; +MEGE400O21 PO; -NORMAL SALINE IV SCH; -NS IV 1000 ML (CANCER CTR) IV SCH; +OXYC5CAP18 PO; -PACLITAXEL IV SCH; -PALONOSETRON HCL 0.25 MG, DEXAMETHASONE INJECTION 10 MG in NS (IVPB) CANCER CENTER 50 ML IV SCH; +PANT20TA3 PO; +PROM5SYR PO; -[UNRECOGNIZED DRUG - OTHER] IV SCH; -diphenhydrAMINE 25 MG TAB (BENADRYL) CANCER CENTER PO SCH
[2019-04-22 12:15] LABS: BASOPHILS % (AUTO) 0 % (0-10); EOSINOPHILS % (AUTO) 0 % (0-10); HEMATOCRIT 29 % (35-52); HEMOGLOBIN 9.2 G/DL (11.5-16.0); LYMPHOCYTES # (AUTO) 0.1 X 10^3 (1.0-4.0); LYMPHOCYTES % (AUTO) 1 % (12-44); MEAN CORPUSCULAR HEMOGLOBIN 32 PG (25-34); MEAN CORPUSCULAR HGB CONC 31 G/DL (32-36); MEAN CORPUSCULAR VOLUME 101 FL (80-99); MONOCYTES # (AUTO) 0.1 X 10^3 (0.0-1.0); MONOCYTES % (AUTO) 1 % (0-12); NEUTROPHILS # (AUTO) 8.6 X 10^3 (1.8-7.8); NEUTROPHILS % (AUTO) 96 % (42-75); PLATELET COUNT 211 10^3/uL (130-400); RED CELL DISTRIBUTION WIDTH 17.2 % (10.0-14.5)
[2019-04-22 12:30] LABS: BUN/CREATININE RATIO 40; CALCIUM 8.7 MG/DL (8.5-10.1); CARBON DIOXIDE 20 MMOL/L (21-32); CHLORIDE 96 MMOL/L (98-107); CREATININE SERUM 0.43 MG/DL (0.60-1.30); GFR ESTIMATED > 60; GLUCOSE 113 MG/DL (70-105); POTASSIUM 3.6 MMOL/L (3.6-5.0); SODIUM 131 MMOL/L (135-145)
== END | disposition home or self-care (01) ==
LOC: LAB FS 01-22 10:45 → EDSTATUS 01-22 10:47 → LAB FS 01-22 10:48
PROVIDERS: ATTEND Nurse Practitioner Adult Health
DX: C34.31 Malignant neoplasm of lower lobe, right bronchus or lung (principal)
CPT/HCPCS: 36415; 80048; 85025

== ENCOUNTER 2019-04-24 15:40 | Inpatient (IN) | payer MEDICARE ==
[~2019-04-24] VITALS: Ht 165.1 cm; Wt 34.2 kg
[~2019-04-24 15:40] MED LIST changes: -ACET-2267 PO; -ALBU18HF2 INH; -AMOX1TAB12 PO; -CEFD300C3 PO; -CELE100C PO; -GUAI-367 PO; -MEGE400O21 PO; -OXYC5CAP18 PO; -PANT20TA3 PO; -PROM5SYR PO
--- NOTE | 2019-04-24 16:10 | ED Back Pain ---
General Chief Complaint: Back Problems Stated Complaint: BACK PAIN Nursing Triage Note: Pt to [facility] via ED w/c with c/o Rt flank discomfort. Pt reports onset of symptoms to be 04/22/19 with an increase in severity last night. Pt states, "it feels like its spasming." Pt denies fever, chills, or urinary symptoms. A&OX4. Nursing Sepsis Screen: No Definite Risk Source of Information: Patient History of Present Illness Date Seen by Provider: Apr 24, 2019 Time Seen by Provider: 16:00 Initial Comments PT ARRIVES VIA POV FROM HOME C/O RIGHT FLANK PAIN STATES IT HAS BEEN HURTING A LITTLE BIT FOR THE LAST FEW NIGHTS, BUT HAS BEEN SEVERE SINCE LAST NIGHT AND HAS NOT BEEN ABLE TO SLEEP NO KNOWN INJURY, BUT STATES SHE HAS BEEN LAYING ON THE COUCH ALL NIGHT WATCHING TV ALL NIGHT THE LAST SEVERAL NIGHTS NO PROBLEMS URINATING NO NAUSEA/VOMITING NO FEVER NO PROBLEMS URINATING OR URINARY SYMPTOMS STATES SHE HAS BEEN CONSTIPATED AND HAS NOT HAD A BM IN 2 DAYS, BUT STATES SHE HAS NOT BEEN HAVING PROBLEMS PASSING STOOL OTHERWISE DENIES ANY INCONTINENCE OF BOWEL STATES SHE HAS BEEN EATING AND DRINKING PT STATES SHE IS BEING TREATED FOR METASTATIC RECTAL CANCER, AND LAST CHEMO WAS LAST Monday04/18/[address] REYES IS IN 3 WEEKS PT ALSO HAS NON SMALL CELL LUNG CANCER VS LUNG METS--PT IS NOT SURE. PT STATES SHE HAS COMPLETED 2 ROUNDS OF RADIATION TO CHEST AND RECTUM, AND HAS HAD 2 ROUNDS OF CHEMO--STATES SHE WAS DX ABOUT A YEAR AGO. TOOK A SINGLE HYDROCODONE TODAY AT [facility], OTHERWISE HAS NOT TAKEN ANYTHING FOR PAIN LATER, RECEIVED CLINIC NOTE FROM DR. REYES'S OFFICE DATED 04/10/19, WITH ADDITIONAL HISTORY NOTED. PT HAD REPORTED AT THAT TIME THAT SHE HAD BEEN ILL THE WEEK BEFORE WITH PROD UCTIVE COUGH AND HAD SEEN SUPERVISOR CELL MAINTENANCE AT URGENT CARE AND WAS GIVEN RX FOR STEROIDS AND ANTIBIOTIC/UNKNOWN NAME. IS NOTED THAT PT HAS SYNCHRONOUS LUNG AND ANAL CANCERS. INITIALLY DX WITH ANAL CANCER 04/2016 AFTER COLONOSCOPY AND HEMORRHOIDECTOMY, BUT DID NOT FOLLOW UP FOR FURTHER EVALUATION/TREATMENT DURING THE WORK UP FOR THE ANAL MASS, IT WAS NOTED THAT SHE HAD AN ENLARGED CERVIX AND PT UNDERWENT VAG HYST + BSO 09/2016--PATH REVEAL MOHAN 2-3 PT PRESENTED TO HER PCP 01/2018 WITH CONSTIPATION AND HEMORRHOID SENSATION--CT SHOWED ABNORMALITY OF RECTUM EXTENDING TO ANAL VERGE, WITH 3.6 CM LEFT ADRENAL MASS, AND A 2.5 CM SPICULATED RLL MASS, A 5 MM RLL PULMONARY NODULE AND 1.7 CM SUBCARINAL LYMPH NODE PT HAD COLONOSCOPY WITH BIOPSY 02/08/18 AND CONFIRMED ANAL SQUAMOUS CELL CARCINOMA WITH EXTENSION TO LOWER RECTUM. PT HAD BRONCHOSCOPY AND LUNG BIOPSY 02/21/18, AND CT GUIDED BIOPSY OF LUNG MASS 04/23/18, REVEALED MODERATELY DIFFERENTIATED ADENOCARCINOMA PT WAS STARTED ON CHEMORADIATION OF ANAL TUMOR 04/30/18, COMPLETED THAT THERAPY 06/19/18 PT WAS THEN TREATED FOR THE NSCLC WITH CHEMO AND RADIATION-COMPLETED RADIATION 09/11/18 AND FINISHED CYCLE 4 CHEMO 09/26/18 CT IN OCTOBER SHOWED PERSISTENT SUBCARINAL DISEASE, AND WAS STARTED ON PALLIATIVE CHEMO. Other Comments PCP: DR. JONES ONCOLOGIST: DR. REYES Allergies and Home Medications Allergies Coded Allergies: carboplatin (Verified Allergy, Intermediate, Rash, 01/31/19) Home Medications Folic Acid 1 Mg Tablet, 1 MG PO DAILY, (Reported) Hydrocodone Bit/Acetaminophen 1 Tab Tab, 1 TAB PO Q6H PRN for PAIN-MODERATE Prescribed by: ARVIN COUCH on 06/25/18 1052 Metoprolol Tartrate 50 Mg Tablet, 50 MG PO DAILY, (Reported) Potassium Chloride 20 Meq Tab.er.prt, 20 MEQ PO DAILY, (Reported) Patient Home Medication List Home Medication List Reviewed: Yes Review of Systems Constitutional: no symptoms reported Respiratory: cough (PRODUCTIVE COUGH WITH GREEN SPUTUM X 1 MONTH, SAW DR. JONES LAST WEEK AND WAS PRESCRIBED AN UNKNOWN ANTIBIOTIC. NO TESTS DONE. ) Cardiovascular: no symptoms reported Gastrointestinal: see HPI, constipation; No nausea, No vomiting Genitourinary: no symptoms reported Musculoskeletal: see HPI, back pain Skin: no symptoms reported Psychiatric/Neurological: No Symptoms Reported Past Tcutart-Ihgirv-Dimsog Hx Past Med/Social Hx: Reviewed and Corrections made Patient Social History Alcohol Use: Past History (HISTORY OF ABUSE--DRANK OVER A 12 PACK A DAY, NO RECENT USE PER PT 04/24/19) Recreational Drug Use: No Smoking Status: Current Everyday Smoker (SMOKES > 2 PPD ALL OF LIFE, RECENTLY DOWN TO 1 PPD, PER PT 04/24/19) Type Used: Cigarettes 2nd Hand Smoke Exposure: Yes Recent Foreign Travel: No Contact w/Someone Who Travel: No Recent Infectious Disease Expo: No Recent Hopitalizations: No Immunizations Up To Date Tetanus Booster (TDap): Unknown PED Vaccines UTD: No Date of Pneumonia Vaccine: Jun 20, 2016 Seasonal Allergies Seasonal Allergies: No Past Medical History Surgeries: Yes (HYST/BSO 09/2016; COLONOSCOPY/HEMORRHOIDECTOMY/RECTAL BIOPSY 04/2016 AND COLONOSCOPY WITH BIOPSY 02/08/18; BRONCHOSCOPY AND RIGHT LUNG BIOPSY 02/21/18; CT GUIDED RIGHT LUNG BIOPSY 04/23; PORT RIGHT CHEST) Hysterectomy, Oophorectomy, Rectal Respiratory: Yes (NON SMALL CELL LUNG CANCER; PT SMOKES > 2 PPD ALL OF LIFE) COPD Cardiac: Yes Hypertension Neurological: No Reproductive Disorders: Yes (HYST/BSO 2016--MOHAN 2-3 ( DISCOVERED DURING WORK UP OF ANAL CANCER) ) 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, Menopausal Genitourinary: No Gastrointestinal: Yes (RECTAL /ANAL CANCER) Hemorrhoids Musculoskeletal: No Endocrine: No HEENT: No (DENTURES) Cancer: Yes (NON-SMALL CELL LUNG CANCER RIGHT LUNG--ADENOCARCINOMA; ANAL/RECTAL CANCER--SQUAMOUS CELL CANCER) Rectal, Lung Did You Recieve Any Treatments: Yes What Type of Treatment Did You: Chemotherapy, Radiation Psychosocial: No Integumentary: No Blood Disorders: No Physical Exam Vital Signs Vital Signs - First Documented 04/24/19 15:43 Temp 36.7 Pulse 91 Resp 20 B/P (MAP) 134/82 (99) Pulse Ox 94 O2 Delivery Room Air Capillary Refill : Less Than 3 Seconds Height, Weight, BMI Height: 5'2.00" Weight: 86lbs. 0.0oz. [id number]; 12.00 BMI Method: General Appearance: Cachetic (ONLY WEIGHS 34 KG=75 LBS), Other (EXTREMELY MALODOROUS, AND REEKS OF FECES. ALSO WITH STRONG ODOR OF CIGARETTES; SOMEWHAT LETHARGIC/GENERALIZED WEAKNESS. DOES NOT APPEAR TO BE IN ANY OBVIOUS PAIN AT THIS TIME. ) HEENT: Other (EDENTULOUS) Neck: Normal Inspection Cardiovascular: Regular Rate, Rhythm, No Edema, No JVD, No Murmur, Normal Peripheral Pulses Respiratory: Normal Breath Sounds, No Accessory Muscle Use, No Respiratory Distress, Other (OCCASIONAL LOOSE, PRODUCTIVE COUGH--GREEN SPUTUM) Gastrointestinal: Normal Bowel Sounds, No Organomegaly, No Pulsatile Mass, Non Tender, Soft Genital/Rectal: Other (NO RECTAL INCONTINENCE ON EXAM. ) Extremity: Normal Capillary Refill, Normal Inspection, No Pedal Edema Neurologic/Psychiatric: Alert, Oriented x3, No Motor/Sensory Deficits, Other (LETHARGIC, GENERALIZED WEAKNESS) Skin: Warm/Dry, Pallor, Other (HAS LOST MOST OF HER HAIR, INCLUDING ON HEAD, EYEBROWS AND EYELASHES. ) Progress/Results/Core Measures Results/Orders Lab Results Laboratory Tests Test 04/24/19 16:15 04/24/19 16:29 Range/Units Urine Color YELLOW Urine Clarity CLEAR Urine pH 5.5 5-9 Urine Specific [place] 1.025 H 1.016-1.022 Urine Protein NEGATIVE NEGATIVE Urine Glucose (UA) NEGATIVE NEGATIVE Urine Ketones NEGATIVE NEGATIVE Urine Nitrite NEGATIVE NEGATIVE Urine Bilirubin NEGATIVE NEGATIVE Urine Urobilinogen 0.2 < = 1.0 MG/DL Urine Leukocyte Esterase NEGATIVE NEGATIVE Urine RBC (Auto) NEGATIVE NEGATIVE Urine RBC NONE /HPF Urine WBC 2-5 /HPF Urine Crystals PRESENT H /LPF Urine Amorphous Sediment MOD MICHAEL URATES H /LPF Urine Bacteria TRACE /HPF Urine Casts NONE /LPF Urine Mucus MODERATE H /LPF Urine Culture Indicated NO White Blood Count 5.0 4.3-11.0 10^3/uL Red Blood Count 2.84 L 4.35-5.85 10^6/uL Hemoglobin 8.9 L 11.5-16.0 G/DL Hematocrit 28 L 35-52 % Mean Corpuscular Volume 100 H 80-99 FL Mean Corpuscular Hemoglobin 31 25-34 PG Mean Corpuscular Hemoglobin Concent 31 L 32-36 G/DL Red Cell Distribution Width 16.9 H 10.0-14.5 % Platelet Count 191 130-400 10^3/uL Mean Platelet Volume 10.1 7.4-10.4 FL Neutrophils (%) (Auto) 87 H 42-75 % Lymphocytes (%) (Auto) 3 L 12-44 % Monocytes (%) (Auto) 9 0-12 % Eosinophils (%) (Auto) 0 0-10 % Basophils (%) (Auto) 0 0-10 % Neutrophils # (Auto) 4.4 1.8-7.8 X 10^3 Lymphocytes # (Auto) 0.2 L 1.0-4.0 X 10^3 Monocytes # (Auto) 0.4 0.0-1.0 X 10^3 Eosinophils # (Auto) 0.0 0.0-0.3 10^3/uL Basophils # (Auto) 0.0 0.0-0.1 10^3/uL Neutrophils % (Manual) 90 % Lymphocytes % (Manual) 1 % Monocytes % (Manual) 5 % Band Neutrophils 4 % Hypochromasia MODERATE Prothrombin Time 15.2 H 12.2-14.7 SEC INR Comment 1.2 0.8-1.4 Activated Partial Thromboplast Time 31 24-35 SEC Sodium Level 139 135-145 MMOL/L Potassium Level 3.7 3.6-5.0 MMOL/L Chloride Level 103 98-107 MMOL/L Carbon Dioxide Level 21 21-32 MMOL/L Anion Gap 15 H 5-14 MMOL/L Blood Urea Nitrogen 17 7-18 MG/DL Creatinine 0.72 0.60-1.30 MG/DL Estimat Glomerular Filtration Rate > 60 BUN/Creatinine Ratio 24 Glucose Level 130 H 70-105 MG/DL Calcium Level 9.5 8.5-10.1 MG/DL Corrected Calcium 10.0 8.5-10.1 MG/DL Total Bilirubin 0.4 0.1-1.0 MG/DL Aspartate Amino Transf (AST/SGOT) 15 5-34 U/L Alanine Aminotransferase (ALT/SGPT) 37 0-55 U/L Alkaline Phosphatase 226 H 40-136 U/L Total Protein 6.7 6.4-8.2 GM/DL Albumin 3.4 3.2-4.5 GM/DL My Orders Orders - DEWEY WATT DO Ed Iv/Invasive Line Start (04/24/19 16:13) Monitor-Rhythm Ecg Trace Only (04/24/19 16:13) Straight Cath For Spec.-Adult (04/24/19 16:13) Chest 1 View, Ap/Pa Only (04/24/19 16:13) Ct Abd/Pelvis Wo(Kidney Stone) (04/24/19 16:13) Ct Chest Wo (04/24/19 16:13) Ed Iv/Invasive Line Start (04/24/19 16:13) Lactated Ringers (Lr 1000 Ml Iv Solution (04/24/19 16:13) Fentanyl Injection (Sublimaze Injection (04/24/19 16:13) Cbc With Automated Diff (04/24/19 16:20) Comprehensive Metabolic Panel (04/24/19 16:20) Protime With Inr (04/24/19 16:20) Partial Thromboplastin Time (04/24/19 16:20) Ua Culture If Indicated (04/24/19 16:20) Manual Differential (04/24/19 16:29) Lactic Acid Analyzer (04/24/19 17:06) Blood Culture (04/24/19 17:06) Influenza A And B Antigens (04/24/19 17:06) Cefepime Injection (Maxipime Injection) (04/24/19 17:15) Labetalol Injection (Normodyne Injection (04/24/19 18:00) Medications Given in ED Current Medications Medications Dose Ordered Sig/Girma Route Start Time Stop Time Status Last Admin Dose Admin Cefepime HCl 1000 mg/Sterile Water 10 ml @ 200 mls/hr ONCE ONCE IV 04/24/19 17:15 04/24/19 17:17 DC 04/24/19 17:48 200 MLS/HR Labetalol HCl 20 mg ONCE ONCE IV 04/24/19 18:00 04/24/19 18:01 DC 04/24/19 18:08 10 MG Lactated Ringer's 1,000 ml @ 0 mls/hr Q0M ONCE IV 04/24/19 16:13 04/24/19 16:15 DC 04/24/19 16:31 1,000 MLS/HR Vital Signs/I&O 04/24/19 15:43 Temp 36.7 Pulse 91 Resp 20 B/P (MAP) 134/82 (99) Pulse Ox 94 O2 Delivery Room Air Blood Pressure Mean: 99 POS Progress Progress Note : Progress Note PAIN IMPROVED WITH FENTANYL BP DOWN WITH LABETALOL UNEVENTFUL ER STAY Diagnostic Imaging Comments CXR--RIGHT LUNG BASE CONSOLIDATIVE OPACITIES--INFECTION, ATELECTASIS OR ASPIRATION. PER RADIOLOGIST REPORT AT 1705 CT CHEST--INTERVAL ENLARGEMENT OF MASS IN RLL, NOW NEARLY COMPLETELY ENGULFING THE RLL, NOW PRESENT IS A LARGE CENTRAL CAVITARY PORTION AT LEAST 4 CM IN DIAMETER, TINY RIGHT PLEURAL EFFUSION. NO PNEUMOTHORAX. NO SUSPICIOUS OSTE OBLASTIC OR LYTIC LESIONS CT ABDOMEN/PELVIS--NO ACUTE FINDINGS. STABLE LEFT ADRENAL GLAND NODULE. LARGE CAVITARY MASS IN RLL PER RADIOLOGIST REPORTS AT 1742 Reviewed: Reviewed by Ct Departure Communication (Admissions) 1750--SPOKE WITH DR. REYES, ONCOLOGIST. HE ADVISES THAT PT NEEDS TO BE ADMITTED. HE ADVISES TO ADMIT TO HOSPITALIST AND HE WILL SEE PT IN CONSULT. 1751--SPOKE WITH DR. CHAUDHARI, HOSPITALIST [facility]/DR. JONES. ACCEPTS PT FOR ADMIT. ADVISES ONLY CEFEPIME AT THIS TIME FOR ANTIBIOTIC COVERAGE. Impression Primary Impression: NSCLC ADENOCARCINOMA OF RLL Additional Impressions: Anal squamous cell carcinoma INTRACTABLE RIGHT BACK PAIN Emaciation HTN (hypertension) CURRENTLY RECEIVING CHEMOTHERAPY POSSIBLE UNDERLYING PNEUMONIA Disposition: ADMITTED INPATIENT Condition: Stable Admissions Decision to Admit Reason: Admit from ER (General) Decision to Admit/Date: Apr 24, 2019 Time/Decision to Admit Time: 17:50 Departure-Patient Inst. Referrals: BRANDIN JONES MD (PCP/Family) Primary Care Physician DEWEY WATT DO Apr 24, 2019 16:10 POS
[2019-04-24] MEDS ORDERED: fentaNYL INJECTION 100 MCG/2 ML AMP IVP STA (16:13)
[2019-04-24] MEDS ORDERED: LACTATED RINGERS 1,000 ML IV ONE (16:13)
[2019-04-24 16:34] LABS: BILIRUBIN,URINE NEGATIVE (NEGATIVE); CLARITY,URINE CLEAR; COLOR,URINE YELLOW; GLUCOSE, URINE (UA) NEGATIVE (NEGATIVE); KETONES,URINE NEGATIVE (NEGATIVE); LEUKOCYTE ESTERASE ,URINE NEGATIVE (NEGATIVE); NITRITE,URINE NEGATIVE (NEGATIVE); PH,URINE 5.5 (5-9); PROTEIN,URINE NEGATIVE (NEGATIVE)
[2019-04-24 16:42] LABS: AMORPHOUS SEDIMENT,UR MOD AMOR URATES /LPF; BACTERIA,URINE TRACE /HPF
[2019-04-24 16:42] LABS: BASOPHILS % (AUTO) 0 % (0-10); EOSINOPHILS % (AUTO) 0 % (0-10); HEMATOCRIT 28 % (35-52); HEMOGLOBIN 8.9 G/DL (11.5-16.0); LYMPHOCYTES # (AUTO) 0.2 X 10^3 (1.0-4.0); LYMPHOCYTES % (AUTO) 3 % (12-44); MEAN CORPUSCULAR HEMOGLOBIN 31 PG (25-34); MEAN CORPUSCULAR HGB CONC 31 G/DL (32-36); MEAN CORPUSCULAR VOLUME 100 FL (80-99); MEAN PLATELET VOLUME 10.1 FL (7.4-10.4); MONOCYTES # (AUTO) 0.4 X 10^3 (0.0-1.0); MONOCYTES % (AUTO) 9 % (0-12); NEUTROPHILS # (AUTO) 4.4 X 10^3 (1.8-7.8); NEUTROPHILS % (AUTO) 87 % (42-75); PLATELET COUNT 191 10^3/uL (130-400); RED CELL DISTRIBUTION WIDTH 16.9 % (10.0-14.5)
--- NOTE | 2019-04-24 16:51 | Diagnostic Imaging Report ---
EXAMINATION: Chest, one view. HISTORY: Decreased oxygen sats. Right flank discomfort. COMPARISON: 02/25/2019. FINDINGS: A left port is stable in configuration. Increased consolidative opacities are seen in the right lung base. The remainder of the lungs are well aerated. Stable prominent cardiac silhouette. There is calcified aortic atherosclerotic plaque. Old right-sided rib fractures are again noted. IMPRESSION: 1. Consolidative opacities in the right lung base, concerning for infection, atelectasis, or aspiration. 2. Stable configuration of the left port. Dictated by: Dictated on workstation # [id number]
[2019-04-24 16:55] LABS: INR 1.2 (0.8-1.4); PROTHROMBIN TIME PATIENT 15.2 SEC (12.2-14.7)
[2019-04-24 17:03] LABS: ALANINE AMINOTRANSFERASE 37 U/L (0-55); ALBUMIN 3.4 GM/DL (3.2-4.5); ALKALINE PHOSPHATASE 226 U/L (40-136); BILIRUBIN,TOTAL 0.4 MG/DL (0.1-1.0); BUN/CREATININE RATIO 24; CALCIUM 9.5 MG/DL (8.5-10.1); CARBON DIOXIDE 21 MMOL/L (21-32); CHLORIDE 103 MMOL/L (98-107); CREATININE SERUM 0.72 MG/DL (0.60-1.30); GFR ESTIMATED > 60; GLUCOSE 130 MG/DL (70-105); POTASSIUM 3.7 MMOL/L (3.6-5.0); SODIUM 139 MMOL/L (135-145); TOTAL PROTEIN 6.7 GM/DL (6.4-8.2)
[2019-04-24] MEDS ORDERED: CEFEPIME INJECTION 1,000 MG in WATER (STERILE) FOR INJECTION 10 ML IV ONE ×2 (17:15→18:30)
[2019-04-24 17:17] LABS: BAND NEUTROPHILS 4 %; HYPOCHROMASIA MODERATE; LYMPHOCYTES % (MANUAL) 1 %; MONOCYTES % (MANUAL) 5 %; NEUTROPHILS % (MANUAL) 90 %
--- NOTE | 2019-04-24 17:24 | Diagnostic Imaging Report ---
PROCEDURE: CT chest without contrast. TECHNIQUE: Multiple contiguous axial images were obtained through the chest without the use of intravenous contrast. Auto Exposure Controls were utilized during the CT exam to meet ALARA standards for radiation dose reduction. INDICATION: Lung cancer. Back pain. COMPARISON: CT chest, abdomen and pelvis 02/13/2019. FINDINGS: Advanced centrilobular emphysema. Since the prior exam, the mass in the right lower lobe now nearly completely encompasses the entire right lower lobe and has a large central cavitary portion measuring at least 4 cm in diameter. There is also consolidation in the anterior right middle lobe with air bronchograms. Biapical scarring. Left lung is otherwise clear. No pneumothorax. Left subclavian CVC tip in the mid SVC. Calcified subcarinal lymph nodes. No mediastinal lymphadenopathy. No axillary lymphadenopathy. Osseous structures are intact. No suspicious osteoblastic or lytic lesions. There are only chronic posterior right lower rib fractures. IMPRESSION: Interval enlargement of the mass in the right lower lobe now near completely engulfing the right lower lobe. There is now a large central cavitary portion measuring at least 4 cm in diameter. Tiny right pleural effusion. No pneumothorax. No suspicious osteoblastic or lytic lesions. Dictated by: Dictated on workstation # [id number]
--- NOTE | 2019-04-24 17:27 | Diagnostic Imaging Report ---
PROCEDURE: CT urinary tract, rule out kidney stone. TECHNIQUE: Multiple contiguous axial images were obtained through the abdomen and pelvis without the use of intravenous contrast. Auto Exposure Controls were utilized during the CT exam to meet ALARA standards for radiation dose reduction. INDICATION: Lung cancer. Back pain. COMPARISON: CT chest, abdomen and pelvis 02/13/2019. CT chest without contrast 04/24/2019. FINDINGS: Large mass in the right lower lobe with central cavitation. Tiny right pleural effusion. Stable low-attenuation mass in the left adrenal gland measuring up to 3.5 cm should represent a benign adenoma. Liver, gallbladder, pancreas, spleen, right adrenal gland, kidneys, collecting systems and bladder are unremarkable. Punctate calcifications in the kidneys are likely vascular. Advanced atherosclerotic calcifications. The appendix is not identified and may be surgically absent. No suspicious inflammatory findings in the region of the cecum. No free intraperitoneal air or fluid. No lymphadenopathy. Hysterectomy. No evidence of bowel obstruction. Age-appropriate changes in the spine. No fractures. No suspicious osteoblastic or lytic lesions. IMPRESSION: 1. No acute CT findings in the abdomen or pelvis on this noncontrast exam. 2. Stable low-attenuation left adrenal gland nodule should be benign. 3. Large cavitary mass in the right lower lobe. Please see today's concurrent CT chest. Dictated by: Dictated on workstation # [id number]
[2019-04-24] MEDS ORDERED: LABETALOL HCL 20 MG/4 ML VIAL IV ONE (18:00)
[2019-04-24] MEDS ORDERED: fentaNYL INJECTION 100 MCG/2 ML AMP IVP ONE (18:30)
--- NOTE | 2019-04-24 19:00 | NUR ---
SEAN JOSE admitted to room 418-1, with an admitting diagnosis of severe right back pain, right lung mass/cancer, HTN, chemotherapy, rectal CA, possible underlying RLL pneumonia, on 04/24/19 from ED via wheelchair, accompanied by staff and family.SEAN JOSE introduced to surroundings, call light, bed controls, phone, TV, temperature control, lights, meal times, smoking policy, visitor policy, side rail policy, bathrooms and showers. Patient Rights given to patient in the handbook. SEAN JOSE verbalizes understanding that [facility] is not responsible for the loss or damage to any personal effects or valuables that are kept in the patients posession during their hospitalization.
[2019-04-24] MEDS ORDERED: CATHETER FLUSH 10 ML SYR IV PRN (19:15)
[2019-04-24 19:18] VITALS: BP 174/91
[2019-04-24] MEDS: D5 1/2 NS W/KCL 20 MEQ/L 1,000 ML IV SCH (20:23)
[2019-04-24] MEDS ORDERED: fentaNYL INJECTION 100 MCG/2 ML AMP ONE ×2 (20:46→23:49)
--- NOTE | 2019-04-24 21:24 | NUR ---
SPOKE TO DR. CHAUDHARI AND INFORMED HER PTS LACTIC ACID IS CRITICAL AT 2.15 AND THAT PTS DVT/VTE RISK FACTOR SCORE IS 13. TELEPHONE ORDERS RECEIVED FOR LOVENOX 40MG Q24HRS SIMONE AND REPEAT LACTIC ACID IN 4 HOURS.
[2019-04-24] MEDS ORDERED: LABETALOL HCL 20 MG/4 ML VIAL IV PRN (22:45)
[2019-04-24] MEDS ORDERED: ONDANSETRON 4 MG/2 ML (SDV) Z0FRAN IVP PRN (22:45)
[2019-04-24 23:38] VITALS: BP 166/99
[2019-04-24] MEDS: fentaNYL INJECTION 100 MCG/2 ML AMP IVP PRN (23:56)
[2019-04-24] MEDS: ACETAMINOPHEN 500 MG TAB (TYLENOL) PO PRN (23:56)
[2019-04-25 03:15] VITALS: BP 154/87
[2019-04-25] MEDS: fentaNYL INJECTION 100 MCG/2 ML AMP IVP PRN ×4 (06:11→22:59)
[2019-04-25 07:17] LABS: BASOPHILS % (AUTO) 0 % (0-10); EOSINOPHILS # (AUTO) 0.1 10^3/uL (0.0-0.3); EOSINOPHILS % (AUTO) 2 % (0-10); HEMATOCRIT 28 % (35-52); HEMOGLOBIN 8.7 G/DL (11.5-16.0); LYMPHOCYTES # (AUTO) 0.2 X 10^3 (1.0-4.0); LYMPHOCYTES % (AUTO) 6 % (12-44); MEAN CORPUSCULAR HEMOGLOBIN 31 PG (25-34); MEAN CORPUSCULAR HGB CONC 32 G/DL (32-36); MEAN CORPUSCULAR VOLUME 99 FL (80-99); MEAN PLATELET VOLUME 10.7 FL (7.4-10.4); MONOCYTES # (AUTO) 0.5 X 10^3 (0.0-1.0); MONOCYTES % (AUTO) 12 % (0-12); NEUTROPHILS # (AUTO) 3.4 X 10^3 (1.8-7.8); NEUTROPHILS % (AUTO) 80 % (42-75); PLATELET COUNT 193 10^3/uL (130-400); RED CELL DISTRIBUTION WIDTH 16.8 % (10.0-14.5); WHITE BLOOD COUNT 4.2 10^3/uL (4.3-11.0)
[2019-04-25 07:48] LABS: ALANINE AMINOTRANSFERASE 24 U/L (0-55); ALBUMIN 3.1 GM/DL (3.2-4.5); ALKALINE PHOSPHATASE 189 U/L (40-136); BILIRUBIN,TOTAL 0.3 MG/DL (0.1-1.0); BUN/CREATININE RATIO 21; CALCIUM 9.5 MG/DL (8.5-10.1); CARBON DIOXIDE 20 MMOL/L (21-32); CHLORIDE 101 MMOL/L (98-107); CREATININE SERUM 0.57 MG/DL (0.60-1.30); GFR ESTIMATED > 60; GLUCOSE 133 MG/DL (70-105); POTASSIUM 3.7 MMOL/L (3.6-5.0); SODIUM 135 MMOL/L (135-145); TOTAL PROTEIN 6.2 GM/DL (6.4-8.2)
[2019-04-25 08:00] VITALS: BP 149/85
[2019-04-25] MEDS ORDERED: ALBU18HF2 INH (08:48)
[2019-04-25] MEDS ORDERED: PANT20TA3 PO (08:48)
[2019-04-25] MEDS ORDERED: AMOX1TAB12 PO (08:48)
[2019-04-25] MEDS ORDERED: OXYC5CAP18 PO (08:48)
[2019-04-25] MEDS ORDERED: ACET-2267 PO (08:48)
[2019-04-25] MEDS ORDERED: GUAI-367 PO (08:49)
[2019-04-25] MEDS: ACETAMINOPHEN 500 MG TAB (TYLENOL) PO PRN (08:54)
[2019-04-25] MEDS: ENOXAPARIN 30 MG/0.3 ML (LOVENOX) SYR SC SCH (08:54)
[2019-04-25] MEDS ORDERED: PROM5SYR PO (08:55)
[2019-04-25] MEDS ORDERED: MEGE400O21 PO (08:56)
--- NOTE | 2019-04-25 08:58 | NUR ---
SPOKE WITH THE PATIENT ABOUT HER MEDICATIONS. WE WENT OVER THE EXT MED HX AND SHE VERIFIED HOW SHE TAKES THEM. SHE STATES THEY HAVE STOPPED ALL BLOOD PRESSURE MEDICATIONS. SHE TAKES TYLENOL AND MUCINEX OTC NEEDED.
[2019-04-25] MEDS ORDERED: ENOXAPARIN 40 MG/0.4 ML (LOVENOX) SYR SC SCH (09:00)
--- NOTE | 2019-04-25 09:00 | NUR ---
TYLENOL 1000MG PO FOR PAIN.
[2019-04-25 09:26] VITALS: BP 149/85
[2019-04-25] MEDS ORDERED: RT-ALBUTEROL/IPRATROPIUM 3 ML (DUONEB) VIAL ONE (09:39)
--- NOTE | 2019-04-25 09:45 | NUR ---
FENTANYL 25MG IV FOR PAIN.
[2019-04-25] MEDS: RT-ALBUTEROL/IPRATROPIUM 3 ML (DUONEB) VIAL INH SCH ×4 (09:48→23:39)
--- NOTE | 2019-04-25 11:30 | NUR ---
DR. CHAUDHARI NOTIFIED HR 120-130.
[2019-04-25 12:00] VITALS: BP 167/91
[2019-04-25] MEDS ORDERED: RT-ALBUTEROL/IPRATROPIUM 3 ML (DUONEB) VIAL INH PRN (12:00)
[2019-04-25] MEDS: D5 1/2 NS W/KCL 20 MEQ/L 1,000 ML IV SCH (12:30)
--- NOTE | 2019-04-25 12:30 | NUR ---
OXYIR PO FOR PAIN.
--- NOTE | 2019-04-25 13:30 | NUR ---
DR. CHAUDHARI NOTIFIED HR 130-140.
--- NOTE | 2019-04-25 14:21 | NUR ---
RD ASSESSMENT PMHx: metastatic colon CA (lung); COPD, HTN PT INTERACTION: Pt was awake and pleasant during consult for MST score. Pt states current appetite is "so-so" and has been for the past 2-3 days. Note pt avg PO intake of 42% x3meal, per chart review. Pt states tolerating her supplement of Ensure Enlive okay. Pt states following a regular diet at home, and has no issues with chewing/swallowing food at this time. Pt states no recent issues with n/v at this time. Pt states some recent issues with constipation, and last BM was 04/22. Note pt not currently on bowel regimen per chart review. Pt states recent 10# wt loss, but could not give timeframe. Note recent 12# wt loss x10mon. This is significant at 15% wt loss. Upon visual exam, pt appears very frail with visible signs of muscle/fat wasting, and a BMI of 12.3, classified as underweight. Given pt's poor PO intake, wt hx, and results of visual exam, pt meets criteria for severe chronic malnutrition per ASPEN guidelines. ABNORMAL NUTRITION-RELATED LAB VALUES LOW: cr 0.57; Pro 6.2; alb 3.1 HIGH: glu 133; alkphos 189 Est. kcal needs: 7167-8722 kcal | 35-40 kcal/kg Est. Pro needs: 50-57 g Pro | 1.5-1.7 g Pro/kg PES STATEMENT: Inadequate oral intake (NI-2.1) related to loss of appetite | constipation as evidenced by pt interview | avg PO intake 42% x3meal Chronic disease or condition related malnutrition (NC-4.1.2) related to physiological causes increasing nutrient needs d/t illness (metastatic colon CA, COPD) | physiological causes resulting in anorexia as evidenced by physical appearance (very frail, BMI 12) | significant wt loss (15% x10mon) | pt interview INTERVENTION: Continue with current diet order of 2000mg Sodium diet. Continue with current supplementation order of Ensure Enlive with meals TID. Provides 350 kcal and 13 g Pro per serving. Will continue to follow and reassess as pt needs and status change. MONITOR/EVALUATE: PO Intake; Plan of Care; Hydration Status; Weight Status; Lab Values Jimbo Fortune, MS, RD, LD
--- NOTE | 2019-04-25 14:45 | NUR ---
DR. CHAUDHARI NOTIFIED HR 150-160. PT REMAINS ASYMPTOMATIC.
--- NOTE | 2019-04-25 14:53 | NUR ---
LABETOLOL 5MG IV X 1 FOR ELEVATED HR. RATE IN 120'S PER ICU RIP SAWYER.
[2019-04-25] MEDS ORDERED: LABETALOL HCL 20 MG/4 ML VIAL IV NR (15:00)
--- NOTE | 2019-04-25 15:30 | NUR ---
DR. ROY EARLIER AND NOTED FECAL SMELL IN ROOM. PT HAD NO BM. WHILE IN PT ROOM, PT BELCHED AND HORRID FECAL SMELL NOTED. DR. CHAUDHARI NOTIFIED.
[2019-04-25 15:56] VITALS: BP 151/89
--- NOTE | 2019-04-25 16:11 | History & Physical ---
HPI History of Present Illness: 68 yo F with known metastatic rectal cancer that follows with Dr Caldwell. Patient states that she started having increasing pain 4-5 days ago and it just became too much to handle. States that the pain is in her right chest wall and worse when she breaths. States that she was told about a lung nodule about 1 year ago and had some followup imaging that did not show any growth at that time. + fever and chills for the last few days. Decreased appetite. Source: patient, family Exam Limitations: no limitations Date seen by provider: Apr 25, 2019 Time Seen by Provider: 11:05 Attending Physician Yue Valentin MD PCP Brandin Jones MD Consult Date of Admission Apr 24, 2019 at 18:00 Home Medications Home Medications Reviewed patient Home Medication Reconciliation performed by pharmacy medication reconciliations chemical processing technician and/or nursing. Patients Allergies have been reviewed. Allergies Coded Allergies: carboplatin (Verified Allergy, Intermediate, Rash, 01/31/19) [id number] Hx Patient Social History Alcohol Use: Past History (HISTORY OF ABUSE--DRANK OVER A 12 PACK A DAY, NO RECENT USE PER PT 04/24/19) Recreational Drug Use: No Smoking Status: Current Everyday Smoker (SMOKES > 2 PPD ALL OF LIFE, RECENTLY DOWN TO 1 PPD, PER PT 04/24/19) Type Used: Cigarettes 2nd Hand Smoke Exposure: Yes Recent Foreign Travel: No Contact w/other who traveled: No Recent Hopitalizations: No Recent Infectious Disease Expo: No Immunizations Up To Date Tetanus Booster (TDap): Unknown Date of Pneumonia Vaccine: Jun 20, 2016 Date of Influenza Vaccine: Feb 22, 2019 Past Medical History Metastatic Rectal cancer Family Medical History Significant Family History: No Pertinent Family Hx Family History: FH: breast cancer 19 MOTHER FH: stroke 19 FATHER Review of Systems ([facility]) Constitutional: chills, fever, malaise, weakness EENTM: nose congestion; No mouth pain, No throat pain Respiratory: cough, dyspnea on exertion; No orthopnea; short of breath Cardiovascular: chest pain; No edema, No palpitations Gastrointestinal: No abdominal pain, No constipation, No diarrhea; loss of appetite; No nausea, No vomiting Genitourinary: no symptoms reported; No dysuria, No frequency : No Musculoskeletal: back pain, other (Right side pain) Skin: no symptoms reported; No lesions, No rash Psychiatric/Neurological: Anxiety, Weakness Reviewed Test Results Reviewed Test Results Lab Laboratory Tests Test 04/24/19 16:15 04/24/19 16:29 04/24/19 18:32 04/24/19 20:35 Range/Units Urine Color YELLOW Urine Clarity CLEAR Urine pH 5.5 5-9 Urine Specific [place] 1.025 H 1.016-1.022 Urine Protein NEGATIVE NEGATIVE Urine Glucose (UA) NEGATIVE NEGATIVE Urine Ketones NEGATIVE NEGATIVE Urine Nitrite NEGATIVE NEGATIVE Urine Bilirubin NEGATIVE NEGATIVE Urine Urobilinogen 0.2 < = 1.0 MG/DL Urine Leukocyte Esterase NEGATIVE NEGATIVE Urine RBC (Auto) NEGATIVE NEGATIVE Urine RBC NONE /HPF Urine WBC 2-5 /HPF Urine Crystals PRESENT H /LPF Urine Amorphous Sediment MOD MICHAEL URATES H /LPF Urine Bacteria TRACE /HPF Urine Casts NONE /LPF Urine Mucus MODERATE H /LPF Urine Culture Indicated NO White Blood Count 5.0 4.3-11.0 10^3/uL Red Blood Count 2.84 L 4.35-5.85 10^6/uL Hemoglobin 8.9 L 11.5-16.0 G/DL Hematocrit 28 L 35-52 % Mean Corpuscular Volume 100 H 80-99 FL Mean Corpuscular Hemoglobin 31 25-34 PG Mean Corpuscular Hemoglobin Concent 31 L 32-36 G/DL Red Cell Distribution Width 16.9 H 10.0-14.5 % Platelet Count 191 130-400 10^3/uL Mean Platelet Volume 10.1 7.4-10.4 FL Neutrophils (%) (Auto) 87 H 42-75 % Lymphocytes (%) (Auto) 3 L 12-44 % Monocytes (%) (Auto) 9 0-12 % Eosinophils (%) (Auto) 0 0-10 % Basophils (%) (Auto) 0 0-10 % Neutrophils # (Auto) 4.4 1.8-7.8 X 10^3 Lymphocytes # (Auto) 0.2 L 1.0-4.0 X 10^3 Monocytes # (Auto) 0.4 0.0-1.0 X 10^3 Eosinophils # (Auto) 0.0 0.0-0.3 10^3/uL Basophils # (Auto) 0.0 0.0-0.1 10^3/uL Neutrophils % (Manual) 90 % Lymphocytes % (Manual) 1 % Monocytes % (Manual) 5 % Band Neutrophils 4 % Hypochromasia MODERATE Prothrombin Time 15.2 H 12.2-14.7 SEC INR Comment 1.2 0.8-1.4 Activated Partial Thromboplast Time 31 24-35 SEC Sodium Level 139 135-145 MMOL/L Potassium Level 3.7 3.6-5.0 MMOL/L Chloride Level 103 98-107 MMOL/L Carbon Dioxide Level 21 21-32 MMOL/L Anion Gap 15 H 5-14 MMOL/L Blood Urea Nitrogen 17 7-18 MG/DL Creatinine 0.72 0.60-1.30 MG/DL Estimat Glomerular Filtration Rate > 60 BUN/Creatinine Ratio 24 Glucose Level 130 H 70-105 MG/DL Calcium Level 9.5 8.5-10.1 MG/DL Corrected Calcium 10.0 8.5-10.1 MG/DL Total Bilirubin 0.4 0.1-1.0 MG/DL Aspartate Amino Transf (AST/SGOT) 15 5-34 U/L Alanine Aminotransferase (ALT/SGPT) 37 0-55 U/L Alkaline Phosphatase 226 H 40-136 U/L Total Protein 6.7 6.4-8.2 GM/DL Albumin 3.4 3.2-4.5 GM/DL Lactic Acid Level 2.49 *H 2.15 *H 0.50-2.00 MMOL/L Test 04/25/19 01:10 04/25/19 06:01 Range/Units Lactic Acid Level 0.87 0.50-2.00 MMOL/L White Blood Count 4.2 L 4.3-11.0 10^3/uL Red Blood Count 2.79 L 4.35-5.85 10^6/uL Hemoglobin 8.7 L 11.5-16.0 G/DL Hematocrit 28 L 35-52 % Mean Corpuscular Volume 99 80-99 FL Mean Corpuscular Hemoglobin 31 25-34 PG Mean Corpuscular Hemoglobin Concent 32 32-36 G/DL Red Cell Distribution Width 16.8 H 10.0-14.5 % Platelet Count 193 130-400 10^3/uL Mean Platelet Volume 10.7 H 7.4-10.4 FL Neutrophils (%) (Auto) 80 H 42-75 % Lymphocytes (%) (Auto) 6 L 12-44 % Monocytes (%) (Auto) 12 0-12 % Eosinophils (%) (Auto) 2 0-10 % Basophils (%) (Auto) 0 0-10 % Neutrophils # (Auto) 3.4 1.8-7.8 X 10^3 Lymphocytes # (Auto) 0.2 L 1.0-4.0 X 10^3 Monocytes # (Auto) 0.5 0.0-1.0 X 10^3 Eosinophils # (Auto) 0.1 0.0-0.3 10^3/uL Basophils # (Auto) 0.0 0.0-0.1 10^3/uL Sodium Level 135 135-145 MMOL/L Potassium Level 3.7 3.6-5.0 MMOL/L Chloride Level 101 98-107 MMOL/L Carbon Dioxide Level 20 L 21-32 MMOL/L Anion Gap 14 5-14 MMOL/L Blood Urea Nitrogen 12 7-18 MG/DL Creatinine 0.57 L 0.60-1.30 MG/DL Estimat Glomerular Filtration Rate > 60 BUN/Creatinine Ratio 21 Glucose Level 133 H 70-105 MG/DL Calcium Level 9.5 8.5-10.1 MG/DL Corrected Calcium 10.2 H 8.5-10.1 MG/DL Total Bilirubin 0.3 0.1-1.0 MG/DL Aspartate Amino Transf (AST/SGOT) 9 5-34 U/L Alanine Aminotransferase (ALT/SGPT) 24 0-55 U/L Alkaline Phosphatase 189 H 40-136 U/L Total Protein 6.2 L 6.4-8.2 GM/DL Albumin 3.1 L 3.2-4.5 GM/DL Physical Exam-([facility]) Physical Exam Vital Signs VS - Last 72 Hours, by Label POS 04/24/19 04/24/19 04/24/19 04/24/19 15:43 18:13 19:15 19:18 Temp 36.7 36.5 Pulse 91 92 94 Resp 20 20 24 B/P (MAP) 134/82 (99) 174/91 (99) 174/91 (118) Pulse Ox 94 98 95 O2 Delivery Room Air Room Air Room Air 04/24/19 04/24/19 04/24/19 04/24/19 19:18 20:28 23:38 23:56 Temp 36.5 37.8 37.2 Pulse 94 100 108 Resp 24 18 B/P (MAP) 174/91 166/99 (121) Pulse Ox 95 96 O2 Delivery Room Air Room Air 04/25/19 04/25/19 04/25/19 04/25/19 01:00 03:15 07:00 08:00 Temp 37.3 36.5 Pulse 105 100 96 108 Resp 16 24 B/P (MAP) 154/87 (109) 149/85 (106) Pulse Ox 97 93 O2 Delivery Room Air Room Air 04/25/19 04/25/19 04/25/19 04/25/19 08:00 09:26 09:42 09:49 Temp 36.5 Pulse 108 Pulse Ox 94 94 94 94 O2 Delivery Room Air Room Air Room Air FiO2 21 04/25/19 04/25/19 04/25/19 04/25/19 12:00 13:00 14:44 14:47 Temp 36.5 Pulse 110 160 162 Resp 22 B/P (MAP) 167/91 (116) Pulse Ox 94 92 O2 Delivery Room Air Room Air 04/25/19 15:56 Temp 36.8 Pulse 107 Resp 18 B/P (MAP) 151/89 (109) Pulse Ox 93 O2 Delivery Room Air Capillary Refill : Less Than 3 SecondsLess Than 3 Seconds General Appearance: mild distress, thin HEENT: PERRL/EOMI Neck: non-tender, full range of motion, supple Respiratory: decreased breath sounds, crackles, other (Right chest wall ttp) Cardiovascular: normal peripheral pulses, regular rate, rhythm, no murmur Gastrointestinal: normal bowel sounds, non tender, soft Back: no CVA tenderness, no vertebral tenderness Extremities: no pedal edema, no calf tenderness, normal capillary refill Neurologic/Psychiatric: 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, alert, normal mood/affect, oriented x 3 Skin: normal color, warm/dry Lymphatic: no adenopathy Assessment/Plan Assessment/Plan Admission Status: Inpatient Order (span 2 midnights) Reason for Inpatient Admission: Uncontrolled pain, new oxygen requirement and sepsis (1) Sepsis Status: Acute Assessment & Plan: - Gentle hydration, Started on Cefepime, titrate oxygen as tolerated, cavitary lesion Qualifiers: Qualified Codes: A41.9 - Sepsis, unspecified organism (2) PNA (pneumonia) Status: Acute Qualifiers: Qualified Codes: J18.1 - Lobar pneumonia, unspecified organism (3) Cavitating mass in right lower lung lobe Status: Acute Assessment & Plan: - Metastatic lesion, Reviewed CT scans and last CT mass was 1.7 cm now 4 cm across (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 (5) Normocytic anemia Status: Chronic (6) Tachycardia, unspecified Status: Acute Assessment & Plan: - ECG sinus tachycardia, IV labeltolol, Stat CTA to rule out PE (7) HTN (hypertension) Status: Chronic Qualifiers: Qualified Codes: I10 - Essential (primary) hypertension (8) Emaciation Status: Acute (9) DVT prophylaxis Status: Acute Assessment & Plan: - Lovenox Clinical Quality Measures DVT/VTE Risk/Contraindication: Risk Factor Score Per Nursin RFS Level Per Nursing on Admit: 4+=Very High Copy Copies To 1: BRANDIN JONES MD, HOLLY R MD Apr 25, 2019 16:11 POS
[2019-04-25] MEDS ORDERED: NON-FORMULARY MEDICATION 1 EA EA (Pantoprazole Sodium 20 MG) PO PRN (16:15)
[2019-04-25] MEDS ORDERED: PANTOPRAZOLE 20 MG TABLET (PROTONIX) PO PRN (16:15)
[2019-04-25] MEDS: CEFEPIME 2,000 MG/SWFI 20 ML IV PUSH IV SCH ×2 (18:20)
[2019-04-25] MEDS ORDERED: HOLD METFORMIN - RECEIVED CONTRAST 20 ML VIAL IV SCH (18:45)
[2019-04-25] MEDS ORDERED: IOHEXOL 350 MG/ML 100 ML (OMNIPAQUE 350) VIAL IV ONE (18:45)
[2019-04-25] MEDS ORDERED: NS 100 ML (IVPB) BAG IV ONE (18:45)
[2019-04-25] MEDS ORDERED: CATHETER FLUSH 10 ML SYR IV PRN (18:45)
--- NOTE | 2019-04-25 18:56 | Consultation ---
History of Present Illness History of Present Illness Patient Consulted On(roscoe/time) 04/25/19 18:37 Date Seen by Provider: Apr 25, 2019 Time Seen by Provider: 18:39 History of Present Illness Mrs. Zhang is a 68 yo female with refractory stage III NSCLC. She presented to the ED yesterday with severe right flank/right lower chest pain that began about 4-5 days ago but acutely worsened over the last 2 days. She became extremely weak and short of breath as well. She had just received treatment with chemoimmunotherapy on 04/18/19, with atezolizumab, bevacizumab and paclitaxel. CT without contrast noted significant growth of her right lower lung mass with new cavitation and right middle lobe consolidation. Patient was admitted for pain management and empiric treatment of pneumonia. Patient complained of constipation and nursing staff and primary care noted severe halitosis. Today, family notes patient is "100% better than yesterday." Patient still has significant shortness of breath with exertion despite normal oxygen saturations. Pain is controlled to 3/10 at rest and 6-7/10 with exertion. Allergies and Home Medications Allergies Coded Allergies: carboplatin (Verified Allergy, Intermediate, Rash, 01/31/19) Home Medications Acetaminophen 500 Mg Tablet, 1,000 MG PO Q4H PRN for PAIN-MILD (1-4), (Reported) Albuterol Sulfate 18 Gm Hfa.aer.ad, 2 PUFF INH Q6H PRN for SHORTNESS OF BREATH, (Reported) Amoxicillin/Potassium Clav 1 Each Tablet, 1 TAB PO Q12H, (Reported) 7 DAY SUPPLY FILLED 04-22-19 Guaifenesin/Dextromethorphan 1 Each Tab.er.12h, 1 TAB PO BID PRN for CONGESTION, (Reported) Megestrol Acetate 400 Mg/10 Ml Oral.susp, 1 ML PO BID PRN for APPETITE, (Reported) Oxycodone HCl 5 Mg Capsule, 5 MG PO Q6H PRN for PAIN-SEVERE (8-10), (Reported) Pantoprazole Sodium 20 Mg Tablet.dr, 20 MG PO DAILY PRN for ACID REFLUX, (Reported) Promethazine HCl/Codeine 5 Ml Syrup, 5 ML PO Q6H PRN for COUGH, (Reported) Patient Home Medication List Home Medication List Reviewed: Yes Past Hqonmyz-Rffhdo-Nymkdm Hx Past Med/Social Hx: Reviewed and Corrections made Patient Social History Alcohol Use: Past History (HISTORY OF ABUSE--DRANK OVER A 12 PACK A DAY, NO RECENT USE PER PT 04/24/19) Recreational Drug Use: No Smoking Status: Current Everyday Smoker (SMOKES > 2 PPD ALL OF LIFE, RECENTLY DOWN TO 1 PPD, PER PT 04/24/19) Type Used: Cigarettes 2nd Hand Smoke Exposure: Yes Recent Foreign Travel: No Contact w/Someone Who Travel: No Recent Infectious Disease Expo: No Recent Hopitalizations: No Immunizations Up To Date Tetanus Booster (TDap): Unknown PED Vaccines UTD: No Date of Pneumonia Vaccine: Jun 20, 2016 Date of Influenza Vaccine: Feb 22, 2019 Seasonal Allergies Seasonal Allergies: No Past Medical History Surgeries: Yes (HYST/BSO 09/2016; COLONOSCOPY/HEMORRHOIDECTOMY/RECTAL BIOPSY 04/2016 AND COLONOSCOPY WITH BIOPSY 02/08/18; BRONCHOSCOPY AND RIGHT LUNG BIOPSY 02/21/18; CT GUIDED RIGHT LUNG BIOPSY 04/23; PORT RIGHT CHEST) Hysterectomy, Oophorectomy, Rectal Respiratory: Yes (NON SMALL CELL LUNG CANCER; PT SMOKES > 2 PPD ALL OF LIFE) COPD Cardiac: Yes Hypertension Neurological: No Reproductive Disorders: Yes (HYST/BSO 2016--MOHAN 2-3 ( DISCOVERED DURING WORK UP OF ANAL CANCER) ) PLANT ELECTRICAL ENGINEER History: Hysterectomy, Menopausal Genitourinary: No Gastrointestinal: Yes (RECTAL /ANAL CANCER) Hemorrhoids Musculoskeletal: No Endocrine: No HEENT: No (DENTURES) Cancer: Yes (NON-SMALL CELL LUNG CANCER RIGHT LUNG--ADENOCARCINOMA; ANAL/RECTAL CANCER--SQUAMOUS CELL CANCER) Rectal, Lung Did You Recieve Any Treatments: Yes What Type of Treatment Did You: Chemotherapy, Radiation Psychosocial: No Integumentary: No Blood Disorders: No Family Medical History FH: breast cancer 19 MOTHER FH: stroke 19 FATHER No Pertinent Family Hx Review of Systems-General Constitutional: No fever; malaise, weakness EENTM: no symptoms reported Respiratory: dyspnea on exertion, short of breath Cardiovascular: chest pain; No palpitations Gastrointestinal: abdominal pain, constipation, loss of appetite; No nausea, No vomiting Genitourinary: pain Musculoskeletal: muscle weakness Skin: no symptoms reported Psychiatric/Neurological: No Symptoms Reported Physical Exam-General Problems Physical Exam Vital Signs Vital Signs - First Documented 04/24/19 04/25/19 15:43 09:26 Temp 36.7 Pulse 91 Resp 20 B/P (MAP) 134/82 (99) Pulse Ox 94 O2 Delivery Room Air FiO2 21 Capillary Refill : Less Than 3 SecondsLess Than 3 Seconds General Appearance: WD/WN, moderate distress Eyes: Bilateral Eye Normal Inspection, Bilateral Eye EOMI HEENT: normal ENT inspection Neck: normal inspection Respiratory: decreased breath sounds; No crackles, No wheezing Cardiovascular: no edema, tachycardia Gastrointestinal: normal bowel sounds, non tender, soft, no organomegaly, no pulsatile mass Extremities: normal range of motion, normal inspection, no pedal edema Neurologic/Psychiatric: alert, normal mood/affect, oriented x 3 Skin: warm/dry, pallor Lymphatic: no adenopathy Assessment/Plan Assessment/Plan Admission Diagnosis/Plan 68 yo female with refractory stage III non small cell lung cancer was admitted with subjective shortness of breath without hypoxia and severe right flank/chest pain. CT notes aarti progression of tumor in the RLL lung with possible post- obstructive pneumonia. Patient's presentation is not consistent with infection, however, and cultures have been negative. Prognosis is poor. She has progressed rapidly through her second line treatment for cancer and successive lines of therapy are much less likely to evoke a response. Patient remains intent on receiving palliative chemotherapy and wishes to continue with semi aggressive acute hospital care. She does not want to be intubated. Given patient's shortness of breath and tachycardia, would suggest ruling out PE. Continue empiric antibiotics and pain control and continue to monitor for possible improvement. Thank you for allowing me to participate in the care of Mrs. Zhang. Clinical Quality Measures DVT/VTE Risk/Contraindication: Risk Factor Score Per Nursin RFS Level Per Nursing on Admit: 4+=Very High Results Labs Labs Laboratory Tests 04/24/19 20:35: Lactic Acid Level 2.15*H 04/25/19 01:10: Lactic Acid Level 0.87 04/25/19 06:01: White Blood Count 4.2L, Red Blood Count 2.79L, Hemoglobin 8.7L, Hematocrit 28L, Mean Corpuscular Volume 99, Mean Corpuscular Hemoglobin 31, Mean Corpuscular Hemoglobin Concent 32, Red Cell Distribution Width 16.8H, Platelet Count 193, Mean Platelet Volume 10.7H, Neutrophils (%) (Auto) 80H, Lymphocytes (%) (Auto) 6L, Monocytes (%) (Auto) 12, Eosinophils (%) (Auto) 2, Basophils (%) (Auto) 0, Neutrophils # (Auto) 3.4, Lymphocytes # (Auto) 0.2L, Monocytes # (Auto) 0.5, Eosinophils # (Auto) 0.1, Basophils # (Auto) 0.0, Sodium Level 135, Potassium Level 3.7, Chloride Level 101, Carbon Dioxide Level 20L, Anion Gap 14, Blood Urea Nitrogen 12, Creatinine 0.57L, Estimat Glomerular Filtration Rate > 60, BUN/Creatinine Ratio 21, Glucose Level 133H, Calcium Level 9.5, Corrected Calcium 10.2H, Total Bilirubin 0.3, Aspartate Amino Transf (AST/SGOT) 9, Alanine Aminotransferase (ALT/SGPT) 24, Alkaline Phosphatase 189H, Total Protein 6.2L, Albumin 3.1L Microbiology 04/24/19 Blood Culture - Preliminary, Resulted No growth 04/24/19 Influenza Types A,B Antigen ([facility]) - Final, Complete Procedures Procedures Date of Exam:04/24/19 CT CHEST WO PROCEDURE: CT chest without contrast. TECHNIQUE: Multiple contiguous axial images were obtained through the chest without the use of intravenous contrast. Auto Exposure Controls were utilized during the CT exam to meet ALARA standards for radiation dose reduction. INDICATION: Lung cancer. Back pain. COMPARISON: CT chest, abdomen and pelvis 02/13/2019. FINDINGS: Advanced centrilobular emphysema. Since the prior exam, the mass in the right lower lobe now nearly completely encompasses the entire right lower lobe and has a large central cavitary portion measuring at least 4 cm in diameter. There is also consolidation in the anterior right middle lobe with air bronchograms. Biapical scarring. Left lung is otherwise clear. No pneumothorax. Left subclavian CVC tip in the mid SVC. Calcified subcarinal lymph nodes. No mediastinal lymphadenopathy. No axillary lymphadenopathy. Osseous structures are intact. No suspicious osteoblastic or lytic lesions. There are only chronic posterior right lower rib fractures. IMPRESSION: Interval enlargement of the mass in the right lower lobe now near completely engulfing the right lower lobe. There is now a large central cavitary portion measuring at least 4 cm in diameter. Tiny right pleural effusion. No pneumothorax. No suspicious osteoblastic or lytic lesions. NEHA REYES MD Apr 25, 2019 18:56 POS
[2019-04-25 19:52] VITALS: BP 158/91
--- NOTE | 2019-04-25 20:40 | Diagnostic Imaging Report ---
PROCEDURE: CT angiography of the chest with contrast. TECHNIQUE: Multiple contiguous axial images were obtained through the chest after uneventful bolus administration of intravenous contrast. 3D reconstructed CTA MIP acquisitions were also performed. Auto Exposure Controls were utilized during the CT exam to meet ALARA standards for radiation dose reduction. INDICATION: Tachycardia. Dyspnea. Lung cancer. Rectal cancer. COMPARISON: CT chest without contrast from yesterday. FINDINGS: No pulmonary emboli. No thoracic aortic aneurysm or dissection. Again seen is a large cavitary mass involving the entire right lower lobe. This now contains an air-fluid level. There remains consolidation with air bronchograms in the right middle lobe. Small right pleural effusion. Advanced centrilobular emphysema. Heart size upper limits of normal. No pericardial effusion. Probable wall thickening of the distal esophagus. No mediastinal, hilar or axillary lymphadenopathy is identified. Stable left adrenal nodule which should be benign. The visualized upper abdominal contents are otherwise unremarkable on this arterial phase exam. No acute osseous findings. IMPRESSION: 1. No pulmonary emboli. No thoracic aortic aneurysm or dissection. 2. Again seen is the large cavitary mass near completely replacing the right lower lobe. There is also persistent consolidation with air bronchograms in the right middle lobe suspicious for pneumonitis. Small right pleural effusion. Dictated by: Dictated on workstation # [id number]
[2019-04-26] VITALS (7 sets, daily range): BP systolic 122–177; BP diastolic 59–82
[2019-04-26] MEDS: RT-ALBUTEROL/IPRATROPIUM 3 ML (DUONEB) VIAL INH SCH ×6 (02:49→21:17)
[2019-04-26] MEDS: fentaNYL INJECTION 100 MCG/2 ML AMP IVP PRN ×3 (03:21→13:09)
[2019-04-26 05:29] LABS: BASOPHILS % (AUTO) 1 % (0-10); EOSINOPHILS % (AUTO) 1 % (0-10); HEMATOCRIT 26 % (35-52); HEMOGLOBIN 8.4 G/DL (11.5-16.0); LYMPHOCYTES # (AUTO) 0.2 X 10^3 (1.0-4.0); LYMPHOCYTES % (AUTO) 7 % (12-44); MEAN CORPUSCULAR HEMOGLOBIN 31 PG (25-34); MEAN CORPUSCULAR HGB CONC 32 G/DL (32-36); MEAN CORPUSCULAR VOLUME 97 FL (80-99); MEAN PLATELET VOLUME 9.8 FL (7.4-10.4); MONOCYTES # (AUTO) 0.3 X 10^3 (0.0-1.0); MONOCYTES % (AUTO) 12 % (0-12); NEUTROPHILS # (AUTO) 1.7 X 10^3 (1.8-7.8); NEUTROPHILS % (AUTO) 79 % (42-75); PLATELET COUNT 191 10^3/uL (130-400); RED CELL DISTRIBUTION WIDTH 17.3 % (10.0-14.5); WHITE BLOOD COUNT 2.2 10^3/uL (4.3-11.0)
[2019-04-26 05:54] LABS: ALANINE AMINOTRANSFERASE 18 U/L (0-55); ALBUMIN 2.7 GM/DL (3.2-4.5); ALKALINE PHOSPHATASE 226 U/L (40-136); BILIRUBIN,TOTAL 0.4 MG/DL (0.1-1.0); BUN/CREATININE RATIO 18; CARBON DIOXIDE 22 MMOL/L (21-32); CHLORIDE 98 MMOL/L (98-107); CREATININE SERUM 0.56 MG/DL (0.60-1.30); GFR ESTIMATED > 60; GLUCOSE 128 MG/DL (70-105); POTASSIUM 4.2 MMOL/L (3.6-5.0); SODIUM 133 MMOL/L (135-145); TOTAL PROTEIN 5.7 GM/DL (6.4-8.2)
[2019-04-26] MEDS: D5 1/2 NS W/KCL 20 MEQ/L 1,000 ML IV SCH ×2 (06:18→21:25)
[2019-04-26] MEDS: ENOXAPARIN 30 MG/0.3 ML (LOVENOX) SYR SC SCH (09:00)
--- NOTE | 2019-04-26 17:15 | Progress Note ---
Subjective Subjective/Events-last exam Pain well controlled this AM. Family here for meeting. Discussed poor prognosis and the appropriateness of hospice at this time. Family would like to discuss further plans and code status. Review of Systems Pulmonary: Dyspnea, Other (pain much improved) Cardiovascular: No: Chest Pain, Palpitations Neurological: Weakness, Incoordination Focused Exam Lactate Level 04/24/19 18:32: Lactic Acid Level 2.49*H 04/24/19 20:35: Lactic Acid Level 2.15*H 04/25/19 01:10: Lactic Acid Level 0.87 Objective Exam Last Set of Vital Signs Vital Signs Date Time Temp Pulse Resp B/P (MAP) Pulse Ox O2 Delivery O2 Flow Rate FiO2 04/26/19 16:35 91 Nasal Cannula 2.00 04/26/19 12:43 121 04/26/19 12:05 37.1 20 122/59 (80) 04/25/19 09:26 21 Capillary Refill : Less Than 3 SecondsLess Than 3 Seconds I&O Intake and Output 04/26/19 00:00 Intake Total 2510 ml Output Total 1600 ml Balance 910 ml Intake Oral 1510 ml IV Total 1000 ml Output Urine Total 1600 ml Daily Weight Change Unsure/Unresponsive General: Alert, Oriented X3, Cooperative, Mild Distress Lungs: Clear to Auscultation, Normal Air Movement Heart: Regular Rate, No Murmurs Abdomen: Normal Bowel Sounds, Soft, No Tenderness, No Masses Extremities: No Edema, No Tenderness/Swelling Results/Procedures Lab Laboratory Tests 04/26/19 05:20: White Blood Count 2.2L, Red Blood Count 2.71L, Hemoglobin 8.4L, Hematocrit 26L, Mean Corpuscular Volume 97, Mean Corpuscular Hemoglobin 31, Mean Corpuscular Hemoglobin Concent 32, Red Cell Distribution Width 17.3H, Platelet Count 191, Mean Platelet Volume 9.8, Neutrophils (%) (Auto) 79H, Lymphocytes (%) (Auto) 7L, Monocytes (%) (Auto) 12, Eosinophils (%) (Auto) 1, Basophils (%) (Auto) 1, Neutrophils # (Auto) 1.7L, Lymphocytes # (Auto) 0.2L, Monocytes # (Auto) 0.3, Eosinophils # (Auto) 0.0, Basophils # (Auto) 0.0, Sodium Level 133L, Potassium Level 4.2, Chloride Level 98, Carbon Dioxide Level 22, Anion Gap 13, Blood Urea Nitrogen 10, Creatinine 0.56L, Estimat Glomerular Filtration Rate > 60, BU N/Creatinine Ratio 18, Glucose Level 128H, Calcium Level 9.0, Corrected Calcium 10.0, Total Bilirubin 0.4, Aspartate Amino Transf (AST/SGOT) 9, Alanine Aminotransferase (ALT/SGPT) 18, Alkaline Phosphatase 226H, Total Protein 5.7L, Albumin 2.7L Microbiology 04/24/19 Blood Culture - Preliminary, Resulted No growth 04/24/19 Influenza Types A,B Antigen (CAREY) - Final, Complete Procedures Date of Exam:04/24/19 CT CHEST WO PROCEDURE: CT chest without contrast. TECHNIQUE: Multiple contiguous axial images were obtained through the chest without the use of intravenous contrast. Auto Exposure Controls were utilized during the CT exam to meet ALARA standards for radiation dose reduction. INDICATION: Lung cancer. Back pain. COMPARISON: CT chest, abdomen and pelvis 02/13/2019. FINDINGS: Advanced centrilobular emphysema. Since the prior exam, the mass in the right lower lobe now nearly completely encompasses the entire right lower lobe and has a large central cavitary portion measuring at least 4 cm in diameter. There is also consolidation in the anterior right middle lobe with air bronchograms. Biapical scarring. Left lung is otherwise clear. No pneumothorax. Left subclavian CVC tip in the mid SVC. Calcified subcarinal lymph nodes. No mediastinal lymphadenopathy. No axillary lymphadenopathy. Osseous structures are intact. No suspicious osteoblastic or lytic lesions. There are only chronic posterior right lower rib fractures. IMPRESSION: Interval enlargement of the mass in the right lower lobe now near completely engulfing the right lower lobe. There is now a large central cavitary portion measuring at least 4 cm in diameter. Tiny right pleural effusion. No pneumothorax. No suspicious osteoblastic or lytic lesions. Assessment/Plan Assessment/Plan (1) Sepsis Status: Acute Assessment & Plan: - Gentle hydration, Started on Cefepime, titrate oxygen as tolerated, cavitary lesion 04/26: Sepsis resolved, continue antibiotics Qualifiers: Qualified Codes: A41.9 - Sepsis, unspecified organism (2) PNA (pneumonia) Status: Acute Qualifiers: Qualified Codes: J18.1 - Lobar pneumonia, unspecified organism (3) Cavitating mass in right lower lung lobe Status: Acute Assessment & Plan: - Metastatic lesion, Reviewed CT scans and last CT mass was 1.7 cm now 4 cm across 04/26: Discussed prognosis and hospice care. 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 (5) Normocytic anemia Status: Chronic (6) Tachycardia, unspecified Status: Acute Assessment & Plan: - ECG sinus tachycardia, IV labeltolol, Stat CTA to rule out PE 04/26: CTA neg for PE, tachycardia improved, likely 2/2 to pain (7) HTN (hypertension) Status: Chronic Qualifiers: Qualified Codes: I10 - Essential (primary) hypertension (8) Emaciation Status: Acute (9) DVT prophylaxis Status: Acute Assessment & Plan: - Lovenox Clinical Quality Measures DVT/VTE Risk/Contraindication: Risk Factor Score Per Nursin RFS Level Per Nursing on Admit: 4+=Very High FAUSTO CHAUDHARI MD Apr 26, 2019 17:15 POS
--- NOTE | 2019-04-26 18:23 | NUR ---
Met with family to explain hospice benefit and home health care benefit. Family plans to talk with Dr. Caldwell before making any continued care decisions. Provided Home health and Hospice Choice form for family review. The only Home Health agency available to pt in [facility] was [facility] and there were tow hospices family was considering [facility].
--- NOTE | 2019-04-26 18:42 | Progress Note ---
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 CT notes aarti progression of tumor in the RLL lung with possible post- obstructive pneumonia. Patient's presentation is not consistent with infection, however, and cultures have been negative. CTA is negative for PE. Pain is likely a result of tumor progression. This evening, pain and shortness of breath are improved. I suspect her shortness of breath was related to her inability to fully expand her chest during inspiration due to pleurisy. Despite the improvement, patient is still tachycardic and quite debilitated. I think it would be reasonable to continue antibiotics and further optimize pain management. If there is no significant improvement by the end of the weekend, it may be appropriate to revisit the possibility of hospice. I had an extensive conversation with family and patient decided on DNAR code status. I have changed the orders. Dr. Recio will be covering the oncology service over the weekend. Focused Exam Lactate Level 04/24/19 18:32: Lactic Acid Level 2.49*H 04/24/19 20:35: Lactic Acid Level 2.15*H 04/25/19 01:10: Lactic Acid Level 0.87 NEHA REYES MD Apr 26, 2019 18:41 POS
[2019-04-26] MEDS: CEFEPIME 2,000 MG/SWFI 20 ML IV PUSH IV SCH ×2 (19:39)
[2019-04-27] MEDS: fentaNYL INJECTION 100 MCG/2 ML AMP IVP PRN ×4 (00:35→13:30)
[2019-04-27] MEDS: RT-ALBUTEROL/IPRATROPIUM 3 ML (DUONEB) VIAL INH SCH ×5 (02:20→19:30)
[2019-04-27 03:50] VITALS: BP 142/74
[2019-04-27 04:06] LABS: BASOPHILS % (AUTO) 0 % (0-10); EOSINOPHILS # (AUTO) 0.1 10^3/uL (0.0-0.3); EOSINOPHILS % (AUTO) 2 % (0-10); HEMATOCRIT 26 % (35-52); HEMOGLOBIN 8.2 G/DL (11.5-16.0); LYMPHOCYTES # (AUTO) 0.3 X 10^3 (1.0-4.0); LYMPHOCYTES % (AUTO) 7 % (12-44); MEAN CORPUSCULAR HEMOGLOBIN 31 PG (25-34); MEAN CORPUSCULAR HGB CONC 32 G/DL (32-36); MEAN CORPUSCULAR VOLUME 99 FL (80-99); MEAN PLATELET VOLUME 9.9 FL (7.4-10.4); MONOCYTES # (AUTO) 0.6 X 10^3 (0.0-1.0); MONOCYTES % (AUTO) 11 % (0-12); NEUTROPHILS # (AUTO) 4.1 X 10^3 (1.8-7.8); NEUTROPHILS % (AUTO) 81 % (42-75); PLATELET COUNT 222 10^3/uL (130-400); RED CELL DISTRIBUTION WIDTH 16.7 % (10.0-14.5); WHITE BLOOD COUNT 5.1 10^3/uL (4.3-11.0)
[2019-04-27 04:18] LABS: BUN/CREATININE RATIO 20; CALCIUM 9.6 MG/DL (8.5-10.1); CARBON DIOXIDE 25 MMOL/L (21-32); CHLORIDE 97 MMOL/L (98-107); GFR ESTIMATED > 60; GLUCOSE 125 MG/DL (70-105); POTASSIUM 4.6 MMOL/L (3.6-5.0); SODIUM 134 MMOL/L (135-145)
[2019-04-27] MEDS: ENOXAPARIN 30 MG/0.3 ML (LOVENOX) SYR SC SCH (07:57)
[2019-04-27 08:00] VITALS: BP 138/73
--- NOTE | 2019-04-27 11:07 | Progress Note ---
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 CT is consistent with progression with a large cavitary lesion. Pain is pleuritic in nature and on antibiotic therapy as well as pain medications. Patient is comfortable at rest but with any movement has significant pain. No bowel movements since admission. I will start her on MiraLAX 17 g daily and also administer a Dulcolax suppository today. Discussed the social situation with her. She lives in [facility] by herself. Family lives close by. We will discuss current problems with the family by phone when they are available. If she is going to be discharged on hospice, a primary caregiver needs to be home most of the time. If she improves and wants to continue another line of chemotherapy, she'll can discuss this with Dr. Caldwell later. Focused Exam Lactate Level 04/24/19 18:32: Lactic Acid Level 2.49*H 04/24/19 20:35: Lactic Acid Level 2.15*H 04/25/19 01:10: Lactic Acid Level 0.87 JESSIKA CAMEJO Apr 27, 2019 11:07 POS
[2019-04-27] MEDS ORDERED: BISACODYL 10 MG SUPP (DULCOLAX) PR ONE (11:15)
[2019-04-27 12:00] VITALS: BP 138/75
[2019-04-27] MEDS: D5 1/2 NS W/KCL 20 MEQ/L 1,000 ML IV SCH (12:01)
--- NOTE | 2019-04-27 12:37 | Progress Note - Hospitalist ---
Subjective HPI/CC On Admission Date Seen by Provider: Apr 27, 2019 Time Seen by Provider: 12:33 Subjective/Events-last exam Patient relatively comfortable at rest but with movement and deep breathing she reports back pain that radiates around to the right lower chest wall area. Cough is minimal but causes pain as well. She denies night sweats chills fever or sputum production. She denies hemoptysis. Focused Exam Lactate Level 04/24/19 18:32: Lactic Acid Level 2.49*H 04/24/19 20:35: Lactic Acid Level 2.15*H 04/25/19 01:10: Lactic Acid Level 0.87 Objective Exam Vital Signs Vital Signs Date Time Temp Pulse Resp B/P (MAP) Pulse Ox O2 Delivery O2 Flow Rate FiO2 04/27/19 12:17 120 04/27/19 10:31 95 Nasal Cannula 2.00 04/27/19 08:00 37.2 16 138/73 (94) 04/25/19 09:26 21 Capillary Refill : Less Than 3 SecondsLess Than 3 Seconds General Appearance: Chronically ill, Cachetic Respiratory: No Accessory Muscle Use, No Respiratory Distress, Other (Scattered rhonchi and decreased breath sounds in the right base no wheezing appreciated) Cardiovascular: Regular Rate, Rhythm, No Edema, No Gallop, No JVD, No Murmur, Normal Peripheral Pulses Extremity: Normal Range of Motion, Non Tender, No Calf Tenderness, No Pedal Edema, Other (Sarcopenia diffuse) Results/Procedures Lab Laboratory Tests 04/27/19 03:53 Patient resulted labs reviewed. Assessment/Plan Assessment and Plan Assess & Plan/Chief Complaint (1) Sepsis Status: Acute Assessment & Plan: - Gentle hydration, Started on Cefepime, titrate oxygen as tolerated, cavitary lesion 04/26: Sepsis resolved, continue antibiotics 04/27: Renal function normal patient has had no problems with nonsteroidals. They may be more beneficial than narcotic therapy with a pleuritic component of her pain will initiate Celebrex 100 mg twice a day. She reports no known history of sulfa allergy or any form of antibiotic allergy. Prognosis poor Qualifiers: Qualified Codes: A41.9 - Sepsis, unspecified organism (2) PNA (pneumonia) Status: Acute Qualifiers: Qualified Codes: J18.1 - Lobar pneumonia, unspecified organism (3) Cavitating mass in right lower lung lobe Status: Acute Assessment & Plan: - Metastatic lesion, Reviewed CT scans and last CT mass was 1.7 cm now 4 cm across 04/26: Discussed prognosis and hospice care. 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 (5) Normocytic anemia Status: Chronic (6) Tachycardia, unspecified Status: Acute Assessment & Plan: - ECG sinus tachycardia, IV labeltolol, Stat CTA to rule out PE 04/26: CTA neg for PE, tachycardia improved, likely 2/2 to pain (7) HTN (hypertension) Status: Chronic Qualifiers: Qualified Codes: I10 - Essential (primary) hypertension (8) Emaciation Status: Acute (9) DVT prophylaxis Status: Acute Assessment & Plan: - Lovenox Clinical Quality Measures DVT/VTE Risk/Contraindication: Risk Factor Score Per Nursin RFS Level Per Nursing on Admit: 4+=Very High BEV OLIVO MD Apr 27, 2019 12:37 POS
[2019-04-27] MEDS ORDERED: CELECOXIB 100 MG (CeleBREX) CAP PO ONE (12:45)
[2019-04-27 16:30] VITALS: BP 128/75
[2019-04-27] MEDS: CEFEPIME 2,000 MG/SWFI 20 ML IV PUSH IV SCH ×2 (17:34)
[2019-04-27 19:27] VITALS: BP 122/63
[2019-04-27] MEDS: CELECOXIB 100 MG (CeleBREX) CAP PO SCH (21:19)
[2019-04-27] MEDS: POLYETHYLENE GLYCOL 17 GM (MIRALAX) PACK PO SCH (21:20)
[2019-04-27] MEDS: ACETAMINOPHEN 500 MG TAB (TYLENOL) PO PRN (21:20)
[2019-04-28] VITALS (7 sets, daily range): BP systolic 119–175; BP diastolic 66–99
[2019-04-28] MEDS: RT-ALBUTEROL/IPRATROPIUM 3 ML (DUONEB) VIAL INH SCH ×6 (01:38→22:03)
[2019-04-28] MEDS: D5 1/2 NS W/KCL 20 MEQ/L 1,000 ML IV SCH ×2 (05:12→21:59)
[2019-04-28] MEDS: ENOXAPARIN 30 MG/0.3 ML (LOVENOX) SYR SC SCH (08:22)
[2019-04-28] MEDS: CELECOXIB 100 MG (CeleBREX) CAP PO SCH ×2 (08:23→20:00)
--- NOTE | 2019-04-28 11:55 | Progress Note ---
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 CT is consistent with progression with a large cavitary lesion. Pain is pleuritic in nature and on antibiotic therapy as well as pain medications. Patient is comfortable at rest and moving better today. Had bowel movement and feels better. Discussed the social situation with her. She lives in [facility] by herself. Family lives close by. Consult medical social consultant for d/c planning. Home with hospice care is current plan. If she improves and wants to continue another line of chemotherapy, she can discuss this with Dr. Caldwell later. JESSIKA CAMEJO Apr 28, 2019 11:55 POS
[2019-04-28] MEDS: ACETAMINOPHEN 500 MG TAB (TYLENOL) PO PRN (11:56)
--- NOTE | 2019-04-28 12:00 | Progress Note - Hospitalist ---
Subjective HPI/CC On Admission Date Seen by Provider: Apr 28, 2019 Time Seen by Provider: 11:54 Subjective/Events-last exam Patient reports decreased back and side pain since the initiation of Celebrex. She's had no nausea or vomiting and reports that she would like to ambulate with family members later today. She continues to produce greenish sputum without reported blood but reports less shortness of breath with exertion. Most confined to getting the commode and back. She reports generalized weakness but denies numbness in the legs or any other symptoms to suggest a spinal cord syndrome. Objective Exam Vital Signs Vital Signs Date Time Temp Pulse Resp B/P (MAP) Pulse Ox O2 Delivery O2 Flow Rate FiO2 04/28/19 08:14 93 Nasal Cannula 2.00 04/28/19 07:41 37.2 99 22 147/76 (99) 04/25/19 09:26 21 Capillary Refill : Less Than 3 SecondsLess Than 3 Seconds General Appearance: No Apparent Distress, Chronically ill, Cachetic Respiratory: No Accessory Muscle Use, No Respiratory Distress, Other (Decreased breath sounds right base with a few rhonchi chest otherwise clear although there are diminished breath sounds to a milder degree throughout the entire posterior chest) Cardiovascular: Regular Rate, Rhythm, No Edema, No Gallop, No JVD, No Murmur, Normal Peripheral Pulses Results/Procedures Lab Patient resulted labs reviewed. Assessment/Plan Assessment and Plan Assess & Plan/Chief Complaint (1) Sepsis Status: Acute Assessment & Plan: - Gentle hydration, Started on Cefepime, titrate oxygen as tolerated, cavitary lesion 04/26: Sepsis resolved, continue antibiotics 04/27: Renal function normal patient has had no problems with nonsteroidals. They may be more beneficial than narcotic therapy with a pleuritic component of her pain will initiate Celebrex 100 mg twice a day. She reports no known history of sulfa allergy or any form of antibiotic allergy. Prognosis poor 04/28: Pleuritic pain improved on Celebrex we'll continue follow basic metabolic panel to make sure she is tolerating this from a renal standpoint. No evidence to suggest thoracic cord syndrome with CT revealing what appears more like osteoporotic compression fracture than metastatic with retropulsion of unknown duration. Qualifiers: Qualified Codes: A41.9 - Sepsis, unspecified organism (2) PNA (pneumonia) Status: Acute Qualifiers: Qualified Codes: J18.1 - Lobar pneumonia, unspecified organism (3) Cavitating mass in right lower lung lobe Status: Acute Assessment & Plan: - Metastatic lesion, Reviewed CT scans and last CT mass was 1.7 cm now 4 cm across 04/26: Discussed prognosis and hospice care. 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 (5) Normocytic anemia Status: Chronic (6) Tachycardia, unspecified Status: Acute Assessment & Plan: - ECG sinus tachycardia, IV labeltolol, Stat CTA to rule out PE 04/26: CTA neg for PE, tachycardia improved, likely 2/2 to pain (7) HTN (hypertension) Status: Chronic Qualifiers: Qualified Codes: I10 - Essential (primary) hypertension (8) Emaciation Status: Acute (9) DVT prophylaxis Status: Acute Assessment & Plan: - Lovenox Clinical Quality Measures DVT/VTE Risk/Contraindication: Risk Factor Score Per Nursin RFS Level Per Nursing on Admit: 4+=Very High BEV OLIVO MD Apr 28, 2019 12:00 POS
[2019-04-28] MEDS: CEFEPIME 2,000 MG/SWFI 20 ML IV PUSH IV SCH ×2 (17:25)
[2019-04-28] MEDS: POLYETHYLENE GLYCOL 17 GM (MIRALAX) PACK PO SCH (20:00)
[2019-04-29] VITALS (7 sets, daily range): BP systolic 130–179; BP diastolic 64–91
[2019-04-29] MEDS: ACETAMINOPHEN 500 MG TAB (TYLENOL) PO PRN (00:21)
[2019-04-29] MEDS: RT-ALBUTEROL/IPRATROPIUM 3 ML (DUONEB) VIAL INH SCH ×3 (07:29→19:25)
[2019-04-29 07:36] LABS: BASOPHILS % (AUTO) 0 % (0-10); EOSINOPHILS # (AUTO) 0.2 10^3/uL (0.0-0.3); EOSINOPHILS % (AUTO) 2 % (0-10); HEMATOCRIT 30 % (35-52); HEMOGLOBIN 9.3 G/DL (11.5-16.0); LYMPHOCYTES # (AUTO) 0.4 X 10^3 (1.0-4.0); LYMPHOCYTES % (AUTO) 3 % (12-44); MEAN CORPUSCULAR HEMOGLOBIN 31 PG (25-34); MEAN CORPUSCULAR HGB CONC 31 G/DL (32-36); MEAN CORPUSCULAR VOLUME 98 FL (80-99); MEAN PLATELET VOLUME 9.6 FL (7.4-10.4); MONOCYTES # (AUTO) 0.7 X 10^3 (0.0-1.0); MONOCYTES % (AUTO) 6 % (0-12); NEUTROPHILS # (AUTO) 9.9 X 10^3 (1.8-7.8); NEUTROPHILS % (AUTO) 88 % (42-75); PLATELET COUNT 313 10^3/uL (130-400); RED CELL DISTRIBUTION WIDTH 16.8 % (10.0-14.5); WHITE BLOOD COUNT 11.2 10^3/uL (4.3-11.0)
[2019-04-29 07:59] LABS: BUN/CREATININE RATIO 15; CALCIUM 9.7 MG/DL (8.5-10.1); CARBON DIOXIDE 26 MMOL/L (21-32); CHLORIDE 96 MMOL/L (98-107); CREATININE SERUM 0.55 MG/DL (0.60-1.30); GFR ESTIMATED > 60; GLUCOSE 111 MG/DL (70-105); POTASSIUM 4.9 MMOL/L (3.6-5.0); SODIUM 133 MMOL/L (135-145)
[2019-04-29 08:51] LABS: BAND NEUTROPHILS 15 %; BASOPHILS % (MANUAL) 0 %; EOSINOPHILS % (MANUAL) 2 %; LYMPHOCYTES % (MANUAL) 3 %; MONOCYTES % (MANUAL) 4 %; NEUTROPHILS % (MANUAL) 76 %
[2019-04-29 08:52] LABS: ANISOCYTOSIS SLIGHT; HYPOCHROMASIA SLIGHT; MICROCYTOSIS SLIGHT; NUCLEATED RED BLOOD CELLS 1; POLYCHROMASIA SLIGHT
[2019-04-29] MEDS: CELECOXIB 100 MG (CeleBREX) CAP PO SCH ×2 (08:54→20:53)
[2019-04-29] MEDS: ENOXAPARIN 30 MG/0.3 ML (LOVENOX) SYR SC SCH (08:55)
--- NOTE | 2019-04-29 10:39 | Occ Therapy Progress Note ---
Therapy Progress Note OT orders received, pt's chart reviewed & pt is currently planning on discharging home with hospice. OT visited with pt, pt reported she is planning on discharging home with hospice, she is hoping to be able to go today. She stated she has no concerns with going home, she will have help to complete all ADLs and anything else she may need. Based on pt's current plans and discussion with pt, OT services are not indicated at this time. 1, visit 1020 ROBYN BOWERS OT Apr 29, 2019 10:39 POS
--- NOTE | 2019-04-29 11:40 | Discharge Summary ---
JARETHMIKE,MED STUDENT 04/29/19 1140: Diagnosis/Chief Complaint Date of Admission Apr 24, 2019 at 18:00 Discharge Date: Apr 29, 2019 Discharge Time: 11:13 Admission Diagnosis severe right back pain, right lung mass/cancer, HTN, chemotherapy, rectal cancer, possible underlying RLL pneumonia Primary Care Nicholas Lamb MD Discharge Diagnosis Right back pain Right lung cancer Rectal cancer HTN Discharge Summary Procedures/Consulations Oncology Dr. Caldwell and Dr. Recio Discharge Physical Exam Allergies: Coded Allergies: carboplatin (Verified Allergy, Intermediate, Rash, 01/31/19) Vitals & I&Os Vital Signs Date Time Temp Pulse Resp B/P (MAP) Pulse Ox O2 Delivery O2 Flow Rate FiO2 04/29/19 09:06 37.2 113 94 24 04/29/19 07:29 Nasal Cannula 1.00 04/29/19 04:00 16 131/81 (98) General Appearance: No Apparent Distress, Chronically ill, Cachetic HEENT: PERRL/EOMI, Pharynx Normal Respiratory: Chest Non Tender, Lungs Clear, Normal Breath Sounds, No Accessory Muscle Use, No Respiratory Distress Cardiovascular: Regular Rate, Rhythm, No Murmur Gastrointestinal: Non Tender, Soft Extremity: No Calf Tenderness, No Pedal Edema Skin: Warm/Dry, Pallor Neurologic/Psychiatric: Alert, Normal Mood/Affect Hospital Course Was the Problem List Reviewed?: Yes Patient presented to the ED on 04/24/19 with complaint of increasing back pain, weakness, and shortness of breath that had been progressively worsening since her chemoimmunotherapy treatment 4-5 days prior. CXR showed consolidative opacities and CT chest showed interval enlargement of the cavitary mass in her right lower lung. Lactate was 2.49. Dr. Caldwell recommended she be admitted at that time. She was placed on IV cefepime, IV fluids, and celebrex for pain control. Oncology was consulted and they recommended continuing empiric antibiotics and pain control. Lactate level normalized. Patient continued to report improvement in symptoms each day and spoke with social work manager regarding hospice vs. home health care benefit. Patient wishes to be discharged home today 04/29/19 and arrangements have been made for hospice. Labs (last 24 hrs) Laboratory Tests 04/29/19 07:15: White Blood Count 11.2H, Red Blood Count 3.02L, Hemoglobin 9.3L, Hematocrit 30L, Mean Corpuscular Volume 98, Mean Corpuscular Hemoglobin 31, Mean Corpuscular Hemoglobin Concent 31L, Red Cell Distribution Width 16.8H, Platelet Count 313, Mean Platelet Volume 9.6, Neutrophils (%) (Auto) 88H, Lymphocytes (%) (Auto) 3L, Monocytes (%) (Auto) 6, Eosinophils (%) (Auto) 2, Basophils (%) (Auto) 0, Neutro phils # (Auto) 9.9H, Lymphocytes # (Auto) 0.4L, Monocytes # (Auto) 0.7, Eosinophils # (Auto) 0.2, Basophils # (Auto) 0.0, Neutrophils % (Manual) 76, Lymphocytes % (Manual) 3, Monocytes % (Manual) 4, Eosinophils % (Manual) 2, Basophils % (Manual) 0, Band Neutrophils 15, Nucleated Red Blood Cells 1, Polychromasia SLIGHT, Hypochromasia SLIGHT, Anisocytosis SLIGHT, Microcytosis SLIGHT, Sodium Level 133L, Potassium Level 4.9, Chloride Level 96L, Carbon Dioxide Level 26, Anion Gap 11, Blood Urea Nitrogen 8, Creatinine 0.55L, Estimat Glomerular Filtration Rate > 60, BUN/Creatinine Ratio 15, Glucose Level 111H, Calcium Level 9.7 Microbiology 04/24/19 Blood Culture - Preliminary, Resulted No growth 04/24/19 Influenza Types A,B Antigen (CAREY) - Final, Complete Patient resulted labs reviewed. Pending Labs Laboratory Tests 04/29/19 07:15: White Blood Count 11.2, Red Blood Count 3.02, Hemoglobin 9.3, Hematocrit 30, Mean Corpuscular Volume 98, Mean Corpuscular Hemoglobin 31, Mean Corpuscular Hemoglobin Concent 31, Red Cell Distribution Width 16.8, Platelet Count 313, Mean Platelet Volume 9.6, Neutrophils (%) (Auto) 88, Lymphocytes (%) (Auto) 3, Monocytes (%) (Auto) 6, Eosinophils (%) (Auto) 2, Basophils (%) (Auto) 0, Neutrophils # (Auto) 9.9, Lymphocytes # (Auto) 0.4, Monocytes # (Auto) 0.7, Eosinophils # (Auto) 0.2, Basophils # (Auto) 0.0, Neutrophils % (Manual) 76, Lymphocytes % (Manual) 3, Monocytes % (Manual) 4, Eosinophils % (Manual) 2, Basophils % (Manual) 0, Band Neutrophils 15, Nucleated Red Blood Cells 1, Polychromasia SLIGHT, Hypochromasia SLIGHT, Anisocytosis SLIGHT, Microcytosis SLIGHT, Sodium Level 133, Potassium Level 4.9, Chloride Level 96, Carbon Dioxide Level 26, Anion Gap 11, Blood Urea Nitrogen 8, Creatinine 0.55, Estimat Glomerular Filtration Rate > 60, BUN/Creatinine Ratio 15, Glucose Level 111, Calcium Level 9.7 Discharge Home Medications: Active Scripts Active Reported Megestrol Acetate 400 Mg/10 Ml Oral.susp 1 Ml PO BID PRN Prometh-Codein 6.25-10 mg/5 ml (Promethazine HCl/Codeine) 5 Ml Syrup 5 Ml PO Q6H PRN Mucinex Dm ER 600-30 mg Tablet (Guaifenesin/Dextromethorphan) 1 Each Tab.er.12h 1 Tab PO BID PRN Tylenol Extra Strength (Acetaminophen) 500 Mg Tablet 1,000 Mg PO Q4H PRN Ventolin Hfa (Albuterol Sulfate) 18 Gm Hfa.aer.ad 2 Puff INH Q6H PRN Oxycodone HCl 5 Mg Capsule 5 Mg PO Q6H PRN Pantoprazole Sodium 20 Mg Tablet.dr 20 Mg PO DAILY PRN Amox Tr-K Clv 875-125 mg Tab (Amoxicillin/Potassium Clav) 1 Each Tablet 1 Tab PO Q12H 7 Days 7 DAY SUPPLY FILLED 04-22-19 Instructions to patient/family Please see electronic discharge instructions given to patient. Clinical Quality Measures DVT/VTE Risk/Contraindication: Risk Factor Score Per Nursin RFS Level Per Nursing on Admit: 4+=Very High MARIVEL MYERS DO 04/29/192056: Diagnosis/Chief Complaint Discharge Diagnosis (1) Cavitating mass in right lower lung lobe Status: Acute (2) PNA (pneumonia) Status: Acute (3) Tachycardia, unspecified Status: Acute (4) Anal squamous cell carcinoma Status: Chronic (5) HTN (hypertension) Status: Chronic (6) Emaciation Status: Acute Discharge Summary Discharge Physical Exam Allergies: Coded Allergies: carboplatin (Verified Allergy, Intermediate, Rash, 01/31/19) General Appearance: No Apparent Distress, Chronically ill, Cachetic Respiratory: Crackles, Decreased Breath Sounds Cardiovascular: Regular Rate, Rhythm Neurologic/Psychiatric: Alert, Oriented x3, No Motor/Sensory Deficits, Normal Mood/Affect Hospital Course Was the Problem List Reviewed?: Yes Celebrex really helped her pain Still coughing up sputum Cavitary lesion from cancer Dr. Caldwell recommended hospice Palliative care nurse updated Pt does not appear to be an inpatient rehab candidate due to Cachexia and overall decline in status, needs end of life. Discussion & Recommendations Discharge Planning: <30 minutes discharge planning Supervisory-Addendum Brief Verification & Attestation Participated in pt care: history, MDM, physical Personally performed: exam, history, MDM, supervision of care Care discussed with: Medical Student Procedures: n/a Results interpretation: Verified all documentation Verification and Attestation of Medical Student E/M Service A medical student performed and documented this service in my presence. I r eviewed and verified all information documented by the medical student and made modifications to such information, when appropriate. I personally performed the physical exam and medical decision making. Marivel Myers, Apr 29, 2019,20:57 Problem Qualifiers (1) PNA (pneumonia): Pneumonia type: due to unspecified organism Laterality: right Lung location: lower lobe of lung Qualified Codes: J18.1 - Lobar pneumonia, unspecified organism (2) HTN (hypertension): Hypertension type: essential hypertension Qualified Codes: I10 - Essential (primary) hypertension MIKE TEMPLETON,MED CR Apr 29, 2019 11:40 MARIVEL GRIFFIN DO Apr 29, 2019 20:57 POS
[2019-04-29] MEDS ORDERED: CELE100C PO (12:06)
[2019-04-29] MEDS ORDERED: CEFD300C3 PO (12:06)
[2019-04-29] MEDS ORDERED: OXYC5CAP18 PO (12:06)
--- NOTE | 2019-04-29 13:50 | Physical Therapy Progress Note ---
Therapy Progress Note Patient declined PT secondary to she is dismissing to home on this date on hospice. FERNANDA THOMSON PT Apr 29, 2019 13:50 POS
--- NOTE | 2019-04-29 14:03 | NUR ---
[employer] support provided just following Hospice nurse visit: Pt was present with family. Engaged in empathic listening and compassionate presence as pt shared about her plans to go home on hospice. The pt became tearful while sharing about one of her sons who gave her the ring she was wearing. She mentioned he 15 years ago and apologized for weeping. She shared that many loved ones have come into tender memory the past few days. I provided sacred space for free expression of thoughts and feelings and anticipated grief. The family requested prayer and the pt requested prayer for endurance and strength. Offered prayer together.
--- NOTE | 2019-04-29 14:21 | NUR ---
"RD ASSESSMENT PMHx: metastatic colon CA (mets to lung); COPD; HTN PT INTERACTION: Pt was awake and pleasant during consult for MST score. Pt states appetite is still poor since last assessment on 04/25. Note pt avg PO intake of 34% x4d, per chart review. Pt states no recent issues with n/v at this time. Pt states still having issues with constipation. Note last BM was 04/27 and pt currently on bowel regimen of miralax HS, per chart review. As with previous RD assessment, pt meets criteria for severe chronic malnutrition per ASPEN guidelines. ABNORMAL NUTRITION-RELATED LAB VALUES LOW: Na 133; Cl 96; cr 0.55 HIGH: glu 111 Est. kcal needs: 9806-2848 kcal | 35-40 kcal/kg Est. Pro needs: 52-62 g Pro | 1.5-1.8 g Pro/kg PES STATEMENT: Inadequate oral intake (NI-2.1) related to loss of appetite | constipation as evidenced by pt interview | avg PO intake 34% x4d Chronic disease or condition related malnutrition (NC-4.1.2) related to physiological causes increasing nutrient needs d/t illness (metastatic colon CA, COPD) | physiological causes resulting in anorexia as evidenced by physical appearance (very frail, BMI 12.7) | significant wt loss (15% x10mon) | pt interview INTERVENTION: Continue with current diet order of Regular diet. Continue with current supplement order of Ensure Enlive (vary) with meals TID. Provides 350 kcal and 13 g Pro per serving. Encouraged pt to eat when able upon discharge and gave suggestions to increase kcal intake without increasing volume of food. Will continue to follow and reassess as pt needs and status change. MONITOR/EVALUATE: PO Intake; Plan of Care; Hydration Status; Weight Status; Lab Values Jimbo Fortune, MS, RD, LD"
[2019-04-29] MEDS: D5 1/2 NS W/KCL 20 MEQ/L 1,000 ML IV SCH (15:14)
--- NOTE | 2019-04-29 15:49 | NUR ---
Arrangements made with [facility] for Hospice services. Pt signed Choice form and placed in chart. Faxed medical information to [facility] the [place], [place] office.the Director of [facility] met with pt and her two sons. Arrangements made for delivery of equipment and a wheel chair and portable oxygen delivered to her room. Due to the inclement weather and the distance the patient lives her discharge was cancelled for today. Family felt it was unsafe to travel with her this evening. Discharge planned for tomorrow.
--- NOTE | 2019-04-29 17:01 | Progress Note ---
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 CT is consistent with progression with a large cavitary lesion. Pain is pleuritic in nature and on antibiotic therapy as well as pain medications. Patient is comfortable at rest and moving better today. Had bowel movement and feels better. Patient and family have decided to proceed with hospice care. director patient financial services have made arrangements. Unable to go home today because of bad road conditions in [place], [place]. Continue IV antibiotics for 1 more day while patient is still here as this seems to be helping right-sided pleuritic pain. May consider broad-spectrum oral antibiotic for a few extra days if necessary. JESSIKA CAMEJO Apr 29, 2019 17:01 POS
[2019-04-29] MEDS ORDERED: CEFEPIME INJECTION 2,000 MG in WATER (STERILE) FOR INJECTION 20 ML IV NR (20:00)
[2019-04-29] MEDS: fentaNYL INJECTION 100 MCG/2 ML AMP IVP PRN (20:52)
[2019-04-29] MEDS: POLYETHYLENE GLYCOL 17 GM (MIRALAX) PACK PO SCH (20:53)
[2019-04-30] VITALS: BP 125/74
[2019-04-30 04:00] VITALS: BP 156/95
[2019-04-30] MEDS: fentaNYL INJECTION 100 MCG/2 ML AMP IVP PRN ×3 (07:11→12:47)
[2019-04-30 08:00] VITALS: BP 131/79
[2019-04-30] MEDS: D5 1/2 NS W/KCL 20 MEQ/L 1,000 ML IV SCH (08:05)
[2019-04-30] MEDS: ENOXAPARIN 30 MG/0.3 ML (LOVENOX) SYR SC SCH (10:16)
[2019-04-30] MEDS: CELECOXIB 100 MG (CeleBREX) CAP PO SCH (10:16)
[2019-04-30] MEDS: RT-ALBUTEROL/IPRATROPIUM 3 ML (DUONEB) VIAL INH SCH ×2 (10:34→15:10)
[2019-04-30 12:00] VITALS: BP 144/75
== END 2019-04-30 15:24 | disposition hospice, home (50) | DRG 871 ==
LOC: EDUNIT# 15:40 → ER 15:41 → 4TH 18:00
PROVIDERS: ADMIT Family Medicine; ATTEND Family Medicine
DX: A41.9 Sepsis, unspecified organism (principal); J18.1 Lobar pneumonia, unspecified organism; C34.31 Malignant neoplasm of lower lobe, right bronchus or lung; C21.0 Malignant neoplasm of anus, unspecified; C78.5 Secondary malignant neoplasm of large intestine and rectum; J98.4 Other disorders of lung; R64 Cachexia; G89.3 Neoplasm related pain (acute) (chronic); J44.9 Chronic obstructive pulmonary disease, unspecified; Z66 Do not resuscitate; R00.0 Tachycardia, unspecified; F17.210 Nicotine dependence, cigarettes, uncomplicated; I10 Essential (primary) hypertension; K59.00 Constipation, unspecified; D64.9 Anemia, unspecified; F41.9 Anxiety disorder, unspecified; R19.6 Halitosis; R09.02 Hypoxemia; F10.11 Alcohol abuse, in remission; K64.9 Unspecified hemorrhoids; Z86.001 Personal history of in-situ neoplasm of cervix uteri; Z92.21 Personal history of antineoplastic chemotherapy; Z92.3 Personal history of irradiation
CPT/HCPCS: 36415; 51701; 71045; 71250; 71275; 74176; 80048; 80053; 81000; 83605; 85007; 85025; 85027; 85610; 85730; 87040; 87804; 93041; 94640; 94664; 94760; 96361; 96374; 96375